=== PATIENT | female | born 1955 | race Caucasian/White ===

== ENCOUNTER 2017-10-03 13:41 | Observation (INO) | payer BC ==
[2017-10-03] MEDS ORDERED: ASPIRIN 81 MG PO STA (14:20)
[2017-10-03] MEDS ORDERED: SODIUM CHLORIDE 0.9% 1,000 ML IV STA (14:20)
[2017-10-03] MEDS ORDERED: NITROGLYCERIN OINT 1 INCH/GM PACKET TOPICAL STA (14:20)
[2017-10-03] MEDS: MORPHINE SULFATE 4 MG/ML SYRINGE IVP STA ×2 (15:17→15:26)
[2017-10-03 15:24] LABS: Basophils % (A) 1 %; Eosinophils # (A) 0.1 k/uL (0-0.7); Eosinophils % (A) 1 %; HCT 38.9 % (34.0-46.0); HGB 13.6 gm/dL (11.4-16.0); Lymphocytes # (A) 3.4 k/uL (1.0-4.8); Lymphocytes % (A) 49 %; MCH 32.9 pg (25.0-35.0); MCHC 35.1 g/dL (31.0-37.0); MCV 93.8 fL (80.0-100.0); Mean Platelet Volume 7.7; Monocytes # (A) 0.4 k/uL (0-1.0); Monocytes % (A) 6 %; Neutrophils # (A) 2.8 k/uL (1.3-7.7); Neutrophils % (A) 41 %; Platelet Count 286 k/uL (150-450); RBC 4.15 m/uL (3.80-5.40); RDW 13.3 % (11.5-15.5)
[2017-10-03 15:27] LABS: ALT 23 U/L (9-52); AST 22 U/L (14-36); Albumin 4.1 g/dL (3.5-5.0); Alkaline Phosphatase 73 U/L (38-126); Anion Gap 9 mmol/L; Blood Urea Nitrogen 20 mg/dL (7-17); Calcium 9.8 mg/dL (8.4-10.2); Carbon Dioxide 28 mmol/L (22-30); Chloride 105 mmol/L (98-107); Glucose 107 mg/dL (74-99); Magnesium 2.1 mg/dL (1.6-2.3); Partial Thromboplastin Time 23.1 sec (22.0-30.0); Potassium 4.6 mmol/L (3.5-5.1); Prothrombin Time 10.1 sec (9.0-12.0); Sodium 142 mmol/L (137-145); Total Bilirubin 0.3 mg/dL (0.2-1.3); Total Protein 7.2 g/dL (6.3-8.2)
[2017-10-03 15:34] LABS: Creatine Kinase 55 U/L (30-135)
--- NOTE | 2017-10-03 15:37 | XR ---
EXAMINATION TYPE: XR chest 2V DATE OF EXAM: 10/03/2017 COMPARISON: NONE HISTORY: Chest pain TECHNIQUE: Frontal and lateral views of the chest are obtained. FINDINGS: There is no focal air space opacity, pleural effusion, or pneumothorax seen. The cardiac silhouette size is within normal limits. The osseous structures are intact. IMPRESSION: No acute cardiopulmonary process.
[2017-10-03 15:47] LABS: Creatine Kinase MB 0.4 ng/mL (0.0-2.4); Troponin I <0.012 ng/mL (0.000-0.034)
--- NOTE | 2017-10-03 17:31 | ED ---
Chest Pain HPI - General Chief Complaint: Chest Pain Stated Complaint: Chest pain sent by UC Time Seen by Provider: 10/03/17 13:57 Source: patient Mode of arrival: ambulatory Limitations: no limitations - History of Present Illness Initial Comments: 62 years old female has a chest pain or shortness of breath for the last few days, chest pain got worse today and went in the hospital on on arrival he was 6 /10 and she was seen at urgent care center and she was advised to come to the ER he said she had a cardiac cath done several years ago she does not how long ago at that point there was no ischemic heart disease she does have a history of hypertension and family history is quite remarkable for coronary artery disease she said her mom headache bypass surgery in 60s. No headaches no neck stiffness has shortness of breath and has chest pain that also has a history of gastroesophageal reflux disease no abdominal pain no frequency urgency dysuria no TIA or CVA - Related Data Home Medications Medication Instructions Recorded Confirmed Estradiol [Estrace] 1 mg PO QAM 05/21/15 10/03/17 Propranolol HCl [Inderal LA] 80 mg PO QAM 05/21/15 10/03/17 clonazePAM [KlonoPIN] 0.5 mg PO HS PRN 05/21/15 10/03/17 Citalopram Hydrobromide [CeleXA] 40 mg PO DAILY 10/03/17 10/03/17 Allergies Allergy/AdvReac Type Severity Reaction Status Date / Time No Known Allergies Allergy Verified 10/03/17 14:11 Review of Systems ROS Statement: Those systems with pertinent positive or pertinent negative responses have been documented in the HPI. ROS Other: All systems not noted in ROS Statement are negative. EKG Findings - EKG Comments: EKG Findings:: EKG is normal sinus rhythm slight bradycardia heart rate of 59 NE interval is 134 QRS duration is 98 QT/QTc is 458/453 review of this EKG does not reveal any ST elevation or ST depression Past Medical History Past Medical History: GERD/Reflux, Hypertension, Sleep Apnea/CPAP/BIPAP Additional Past Medical History / Comment(s): HAVING INTERMITTENT PAIN TO ABD AND RECTAL AREA,HEMORRHOIDS,CURRENTLY HAS HEALING COLD SORES,NO LONGER USES CPAP ,HYPOGLYCEMIA History of Any Multi-Drug Resistant Organisms: None Reported Past Surgical History: Hernia Repair, Hysterectomy Additional Past Surgical History / Comment(s): SEPTOPLASTY,COLONOSCOPY Past Anesthesia/Blood Transfusion Reactions: No Reported Reaction Past Psychological History: Anxiety, Depression Smoking Status: Former smoker Past Alcohol Use History: Occasional Past Drug Use History: None Reported, Marijuana - Past Family History Mother Family Medical History: Cancer, Coronary Artery Disease (CAD) Additional Family Medical History / Comment(s): LUNG,HEPATITIS,CABG Father Family Medical History: Diabetes Mellitus Additional Family Medical History / Comment(s): CIRRHOSIS OF LIVER-ALCOHOLISM General Exam - General Exam Comments Initial Comments: General: The patient is awake and alert, in no distress, and does not appear acutely ill. She looks anxious Skin: Skin is warm and dry and no rashes or lesions are noted. Eye: Pupils are equal, round and reactive to light, extra-ocular movements are intact; there is normal conjunctiva bilaterally. Ears, nose, mouth and throat: There are moist mucous membranes and no oral lesions. Neck: The neck is supple, there is no tenderness or JVD. Cardiovascular: There is a regular rate and rhythm. No murmur, rub or gallop is appreciated. Respiratory: To auscultation bilateral, no wheezing no rhonchi no distress respiratory price noticed Gastrointestinal: Soft, non-distended, non-tender abdomen without masses or organomegaly noted. There is no rebound or guarding present. Bowel sounds are unremarkable. Back: There is no tenderness to palpation in the midline. There is no obvious deformity. Musculoskeletal: Normal ROM, no tenderness, There is no pedal edema. There is no calf tenderness or swelling. No cords were appreciated. Neurological: CN II-XII intact, Cranial nerves III through XII are intact. There are no obvious motor or sensory deficits. Coordination appears grossly intact. Speech is normal. Psychiatric: Cooperative, appropriate mood & affect, normal judgment. Limitations: no limitations Course Vital Signs 10/03/17 10/03/17 10/03/17 13:44 15:09 16:09 Temperature 98.8 F Pulse Rate 61 64 62 Respiratory 18 18 18 Rate Blood Pressure 170/73 169/77 155/77 O2 Sat by Pulse 99 100 100 Oximetry 10/03/17 17:03 Temperature Pulse Rate 66 Respiratory 18 Rate Blood Pressure 174/85 O2 Sat by Pulse 100 Oximetry She is reassessed at term 1700, d-dimer is unremarkable CBC is unremarkable INR is negative troponin is negative compressive metabolic panel is unremarkable chest x-rays unremarkable as well. She has a few risk factors she is so 62 years old she has a history of hypertension and she has a family history of heart disease she be admitted to [facility] for 3 sets of cardiac markers and cardiology consult Disposition Clinical Impression: Chest pain Disposition: ADMITTED IP TO THIS HOSP Condition: Good Referrals: None,Stated [Primary Care Provider] - 1-2 days
[2017-10-03] MEDS ORDERED: clonazePAM 0.5 MG TAB PO PRN (17:32)
[2017-10-03] MEDS ORDERED: NITROGLYCERIN SL TABS 0.4 MG TAB SUBLINGUAL PRN (17:32)
[2017-10-03] MEDS ORDERED: MORPHINE SULFATE 4 MG/ML SYRINGE IVP PRN (17:32)
[2017-10-03] MEDS ORDERED: MAG HYDROX/AL HYDROX/SIMETH 30 ML, HYOSCYAMINE ELIXIR 10 ML, CIMETIDINE HCL 300 MG, LID... PO ONE ×4 (18:08)
--- NOTE | 2017-10-03 18:13 | P.HPIM ---
History of Present Illness H&P Date: 10/03/17 Chief Complaint: Chest pain and dizziness The patient is a 62-year-old female with a past medical history of essential hypertension depression and anxiety and acid reflux who presents to the ER with chief complaint of mid substernal chest pressure over the last 2 days, she reports some associated shortness of breath and dyspnea on exertion, reports that the pain is worse when walking and talking, she reports she did initially felt like her normal GERD symptoms with symptoms of pyrosis and burning, however she became concerned because she normally takes Tums and has been taking Pepcid AC without any relief. She also reports some dizziness and lightheadedness, but denies any headache, denies focal weakness, slurred speech or confusion. She reports to be compliant with her propranolol for hypertension although she did not take it this a.m.. She denies any history of smoking, or dyslipidemia, but reports a family history of coronary artery disease in her mother. In the ER she had a EKG that showed normal sinus rhythm without any suggestion of any acute ischemia, her initial set of cardiac enzymes are negative with troponin less than 0.012 Review of Systems Although the 14 point review of systems negative except per HPI Past Medical History Past Medical History: GERD/Reflux, Hypertension, Sleep Apnea/CPAP/BIPAP Additional Past Medical History / Comment(s): HAVING INTERMITTENT PAIN TO ABD AND RECTAL AREA,HEMORRHOIDS,CURRENTLY HAS HEALING COLD SORES,NO LONGER USES CPAP ,HYPOGLYCEMIA History of Any Multi-Drug Resistant Organisms: None Reported Past Surgical History: Hernia Repair, Hysterectomy Additional Past Surgical History / Comment(s): SEPTOPLASTY,COLONOSCOPY Past Anesthesia/Blood Transfusion Reactions: No Reported Reaction Past Psychological History: Anxiety, Depression Smoking Status: Former smoker Past Alcohol Use History: Occasional Past Drug Use History: None Reported, Marijuana - Past Family History Mother Family Medical History: Cancer, Coronary Artery Disease (CAD) Additional Family Medical History / Comment(s): LUNG,HEPATITIS,CABG Father Family Medical History: Diabetes Mellitus Additional Family Medical History / Comment(s): CIRRHOSIS OF LIVER-ALCOHOLISM Medications and Allergies Home Medications Medication Instructions Recorded Confirmed Type Estradiol [Estrace] 1 mg PO QAM 05/21/15 10/03/17 History Propranolol HCl [Inderal LA] 80 mg PO QAM 05/21/15 10/03/17 History clonazePAM [KlonoPIN] 0.5 mg PO HS PRN 05/21/15 10/03/17 History Citalopram Hydrobromide [CeleXA] 40 mg PO DAILY 10/03/17 10/03/17 History Allergies Allergy/AdvReac Type Severity Reaction Status Date / Time No Known Allergies Allergy Verified 10/03/17 14:11 Physical Exam Vitals: Vital Signs Temp Pulse Resp BP Pulse Ox 10/03/17 17:03 66 18 174/85 100 10/03/17 16:09 62 18 155/77 100 10/03/17 15:09 64 18 169/77 100 10/03/17 13:44 98.8 F 61 18 170/73 99 Intake and Output 10/03/17 10/03/17 10/03/17 06:59 14:59 22:59 Other: Weight 69.4 kg Constitutional: No acute distress, conversant, pleasant Eyes: Anicteric sclerae, moist conjunctiva, no lid-lag, PERRLA ENMT: NC/AT,Oropharynx clear, no erythema, exudates Neck:Supple, FROM, no masses, or JVD, No carotid bruits; No thyromegaly Lungs: Clear to auscultation, Clear to percussion, Normal respiratory effort, no accessory muscle use Cardiovascular: Heart regular in rate and rhythm, No murmurs, gallops, or rubs no peripheral edema Abdominal: Soft Nontender, nom distended, no guarding, no rebound or rigidity, Normoactive bowel sounds No hepatomegaly, No splenomegaly, No palpable mass No abdominal wall hernia noted Skin: Normal temperature, tone, texture, turgor, No induration No subcutaneous nodules, No rash, lesions, No ulcers Extremities:No digital cyanosis No clubbing, Pedal pulses intact and symmetrical Radial pulses intact and symmetrical Normal gait and station, No calf tenderness Psychiatric: Alert and oriented to person, place and time, Appropriate affect Intact judgement Neuro: Muscles Strength 5/5 in all 4 extremities, Sensation to light touch grossly present throughout, Cranial nerves II-XII grossly intact. No focal sensory deficits Results CBC & Chem 7: 10/03/17 14:04 10/03/17 14:04 Labs: Abnormal Lab Results - Last 24 Hours (Table) 10/03/17 Range/Units 14:04 BUN 20 H (7-17) mg/dL Glucose 107 H (74-99) mg/dL Assessment and Plan (1) Chest pain Current Visit: Yes Status: Acute Code(s): R07.9 - CHEST PAIN, UNSPECIFIED SNOMED Code(s): 29530462 (2) GERD (gastroesophageal reflux disease) Current Visit: Yes Status: Acute Code(s): K21.9 - GASTRO-ESOPHAGEAL REFLUX DISEASE WITHOUT ESOPHAGITIS SNOMED Code(s): 583125220 (3) Accelerated hypertension Current Visit: Yes Status: Acute Code(s): I10 - ESSENTIAL (PRIMARY) HYPERTENSION SNOMED Code(s): 17162132 (4) Dizziness Current Visit: Yes Status: Acute Code(s): R42 - DIZZINESS AND GIDDINESS SNOMED Code(s): 666445461 (5) Depression with anxiety Current Visit: Yes Status: Acute Code(s): F41.8 - OTHER SPECIFIED ANXIETY DISORDERS SNOMED Code(s): 210915542 Plan: The patient is a 62-year-old female that is placed on observation anticipate a less than 2 midnight stay for chest pain coronary risk factors include hypertension and age and family history, her initial EKG and cardiac enzymes are negative for any suggestion of any acute ischemia, we'll order her a dobutamine stress echocardiogram, cardiology has been consulted from the ER we 'll await further recommendations. We'll start her on a GI cocktail and PPI therapy, continue with routine chest pain orders we'll trend cardiac enzymes, continue antiplatelet therapy with aspirin. And place her on DVT prophylaxis with Lovenox. We'll continue to monitor clinical course
[2017-10-03 20:47] VITALS: BMI 25.2
[2017-10-03] MEDS ORDERED: clonazePAM 0.5 MG TAB PO ONE (20:55)
[2017-10-03] MEDS ORDERED: PROPRANOLOL LA 80 MG CAP.SA.24H PO ONE (21:02)
[2017-10-03] MEDS ORDERED: CITALOPRAM HYDROBROMIDE 20 MG TAB PO ONE (21:03)
[2017-10-03 21:17] LABS: Creatine Kinase 48 U/L (30-135)
[2017-10-03 21:29] LABS: Creatine Kinase MB 0.3 ng/mL (0.0-2.4); Troponin I <0.012 ng/mL (0.000-0.034)
[2017-10-04 01:43] LABS: Creatine Kinase 45 U/L (30-135)
[2017-10-04 01:56] LABS: Creatine Kinase MB 0.3 ng/mL (0.0-2.4); Troponin I <0.012 ng/mL (0.000-0.034)
[2017-10-04 03:55] LABS: Cholesterol 221 mg/dL (<200); HDL Cholesterol 71 mg/dL (40-60); LDL Cholesterol,Calculated 114 mg/dL (0-99); Triglycerides 178 mg/dL (<150)
[2017-10-04] MEDS ORDERED: DOBUTamine DRIP for NUC MED 250 MG in DEXTROSE/WATER 1 250ML.BAG IV ONE (07:00)
[2017-10-04] MEDS ORDERED: PANTOPRAZOLE 40 MG TABLET PO SCH (07:30)
[2017-10-04 07:47] VITALS: RESP 16
[2017-10-04] MEDS ORDERED: REGADENOSON 0.4 MG/5 ML SYRINGE IV ONE (08:02)
[2017-10-04] MEDS ORDERED: AMINOPHYLLINE 500 MG/20 ML VIAL IV PRN (08:02)
[2017-10-04] MEDS ORDERED: ACETAMINOPHEN TAB 325 MG TAB PO PRN (08:02)
[2017-10-04] MEDS ORDERED: ASPIRIN 81 MG PO SCH (09:00)
[2017-10-04] MEDS ORDERED: CITALOPRAM HYDROBROMIDE 20 MG TAB PO SCH (09:00)
[2017-10-04] MEDS ORDERED: ASPIRIN 325 MG TAB PO SCH (09:00)
[2017-10-04] MEDS ORDERED: ENOXAPARIN 40 MG/0.4 ML SYRINGE SQ SCH (09:00)
[2017-10-04] MEDS ORDERED: PROPRANOLOL LA 80 MG CAP.SA.24H PO SCH (09:00)
--- NOTE | 2017-10-04 09:56 | P.CRDCN ---
History of Present Illness Consult date: 10/04/17 Consult reason: chest pain History of present illness: Mrs. Blackmon is a pleasant 62-year-old female past medical history significant for hypertension, sleep apnea and gastroesophageal reflux disease. She denies history of coronary artery disease. She states she underwent a stress test in the past, many years ago. We have been asked to see her in consultation for complaints of chest pain. She states she has had burning in her mid-sternal region described as burning. The sensation moves across anterior chest and through to left shoulder and back at times. She sas associated shortness of breath, nausea and mild dizziness. Been going on and off for the past 2 days. Unrelieved by pepcid which usually relieves her symptoms of burning, this seemed different to her. No specific aggravating or alleviating factors. Denies palpitations or diaphoresis. EKG on arrival reveals sinus mechanism with right bundle branch block. Chest xray is negative for an acute cardiopulmonary process. Laboratory data reviewed, cardiac enzymes negative x3. potassium 4.6, magnesium 2.1, LDL 114, HDL 71, d-dimer 0.39. Current cardiac medications include propranolol 80 mg daily. Review of Systems At the time my exam: CONSTITUTIONAL: Denies fever. Denies chills. EYES: Denies blurred vision. Denies vision changes. Denies eye pain. EARS, NOSE, MOUTH & THROAT: Denies headache. Denies sore throat. Denies ear pain. CARDIOVASCULAR: Denies chest pain. Denies shortness of breath. Denies orthopnea. Denies PND. Denies palpitations. RESPIRATORY: Denies cough. GASTROINTESTINAL: Denies abdominal pain. Denies diarrhea. Denies constipation. Denies nausea. Denies vomiting. MUSCULOSKELETAL: Denies myalgias. INTEGUMENTARY: Denies pruitis. Denies rash. NEUROLOGIC: Denies numbness. Denies tingling. Denies weakness. PSYCHIATRIC: Denies anxiety. Denies depression. ENDOCRINE: Denies fatigue. Denies weight change. Denies polydipsia. Denies polyurina. GENITOURINARY: Denies burning, hematuria or urgency with micturation. HEMATOLOGIC: Denies history of anemia. Denies bleeding. Past Medical History Past Medical History: GERD/Reflux, Hypertension, Sleep Apnea/CPAP/BIPAP Additional Past Medical History / Comment(s): HAVING INTERMITTENT PAIN TO ABD AND RECTAL AREA,HEMORRHOIDS,CURRENTLY HAS HEALING COLD SORES,NO LONGER USES CPAP ,HYPOGLYCEMIA History of Any Multi-Drug Resistant Organisms: None Reported Past Surgical History: Hernia Repair, Hysterectomy Additional Past Surgical History / Comment(s): SEPTOPLASTY,COLONOSCOPY Past Anesthesia/Blood Transfusion Reactions: No Reported Reaction Past Psychological History: Anxiety, Depression Smoking Status: Former smoker Past Alcohol Use History: Occasional Past Drug Use History: None Reported, Marijuana - Past Family History Mother Family Medical History: Cancer, Coronary Artery Disease (CAD) Additional Family Medical History / Comment(s): LUNG,HEPATITIS,CABG Father Family Medical History: Diabetes Mellitus Additional Family Medical History / Comment(s): CIRRHOSIS OF LIVER-ALCOHOLISM Medications and Allergies Home Medications Medication Instructions Recorded Confirmed Type Estradiol [Estrace] 1 mg PO QAM 05/21/15 10/03/17 History Propranolol HCl [Inderal LA] 80 mg PO QAM 05/21/15 10/03/17 History clonazePAM [KlonoPIN] 0.5 mg PO HS PRN 05/21/15 10/03/17 History Citalopram Hydrobromide [CeleXA] 40 mg PO DAILY 10/03/17 10/03/17 History Allergies Allergy/AdvReac Type Severity Reaction Status Date / Time No Known Allergies Allergy Verified 10/03/17 14:11 Physical Exam Vitals: Vital Signs Temp Pulse Pulse Resp BP BP Pulse Ox 10/04/17 04:00 98.0 F 53 L 18 132/80 99 10/04/17 00:08 98.1 F 54 L 16 128/79 99 10/03/17 23:43 16 10/03/17 20:20 98 F 61 16 159/77 99 10/03/17 20:00 55 L 16 10/03/17 19:21 98 F 60 16 190/90 99 10/03/17 18:52 97.6 F 70 18 151/82 99 10/03/17 17:03 66 18 174/85 100 10/03/17 16:09 62 18 155/77 100 10/03/17 15:09 64 18 169/77 100 10/03/17 13:44 98.8 F 61 18 170/73 99 Intake and Output 10/03/17 10/04/17 10/04/17 22:59 06:59 14:59 Other: Voiding Method Toilet Toilet # Voids 1 1 Weight 71.1 kg 71.1 kg Blood pressure 172/69 heart rate 52 afebrile maintain oxygen saturation on room air GENERAL: This is a 62-year-old female in no apparent distress at the time of my examination. HEENT: Head is atraumatic, normocephalic. Pupils are equal, round. Sclerae anicteric. Conjunctivae are clear. Mucous membranes of the mouth are moist. Neck is supple. There is no jugular venous distention. No carotid bruit is heard. LUNGS: Clear to auscultation no wheezes, rales or rhonchi. No chest wall tenderness is noted on palpation or with deep breathing. HEART: Regular rate and rhythm without murmurs, rubs or gallops. S1 and S2 heard. ABDOMEN: Soft, nontender. Bowel sounds are heard. No organomegaly noted. EXTREMITIES: No evidence of peripheral edema and no calf tenderness noted. VASCULAR: Radial and dorsalis pedis pulses palpated, no evidence of clubbing. NEUROLOGIC: Patient is awake, alert and oriented x3. Results 10/03/17 14:04 10/03/17 14:04 Cardiac Enzymes 10/03/17 10/03/17 10/03/17 Range/Units 14:04 14:04 20:37 AST 22 (14-36) U/L CK-MB (CK-2) 0.4 0.3 (0.0-2.4) ng/mL Troponin I <0.012 <0.012 (0.000-0.034) ng/mL 10/04/17 Range/Units 01:05 AST (14-36) U/L CK-MB (CK-2) 0.3 (0.0-2.4) ng/mL Troponin I <0.012 (0.000-0.034) ng/mL Coagulation 10/03/17 Range/Units 14:04 PT 10.1 (9.0-12.0) sec APTT 23.1 (22.0-30.0) sec Lipids 10/03/17 Range/Units 14:04 Triglycerides 178 H (<150) mg/dL Cholesterol 221 H (<200) mg/dL HDL Cholesterol 71 H (40-60) mg/dL CBC 10/03/17 Range/Units 14:04 WBC 7.0 (3.8-10.6) k/uL RBC 4.15 (3.80-5.40) m/uL Hgb 13.6 (11.4-16.0) gm/dL Hct 38.9 (34.0-46.0) % Plt Count 286 (150-450) k/uL Comprehensive Metabolic Panel 10/03/17 Range/Units 14:04 Sodium 142 (137-145) mmol/L Potassium 4.6 (3.5-5.1) mmol/L Chloride 105 (98-107) mmol/L Carbon Dioxide 28 (22-30) mmol/L BUN 20 H (7-17) mg/dL Creatinine 0.78 (0.52-1.04) mg/dL Glucose 107 H (74-99) mg/dL Calcium 9.8 (8.4-10.2) mg/dL AST 22 (14-36) U/L ALT 23 (9-52) U/L Alkaline Phosphatase 73 (38-126) U/L Total Protein 7.2 (6.3-8.2) g/dL Albumin 4.1 (3.5-5.0) g/dL Current Medications Generic Name Dose Route Start Last Admin Trade Name Freq PRN Reason Stop Dose Admin Aspirin 325 mg 10/04/17 09:00 Aspirin PO DAILY [facility] Citalopram Hydrobromide 40 mg 10/04/17 09:00 Celexa PO DAILY [facility] Clonazepam 0.5 mg 10/03/17 17:32 Klonopin PO HS PRN Anxiety Enoxaparin Sodium 40 mg 10/04/17 09:00 Lovenox SQ DAILY [facility] Dobutamine HCl/Dextrose 250 mg 250 mls @ 41.64 mls/hr 10/04/17 07:00 / IV Solution IV 10/04/17 13:00 .Q6H1M ONE Protocol 10 MCG/KG/MIN Morphine Sulfate 2 mg 10/03/17 17:32 Morphine Sulfate (Inj) IVP Q5M PRN Chest Pain Nitroglycerin 0.4 mg 10/03/17 17:32 Nitrostat SUBLINGUAL Q5M PRN Chest Pain Pantoprazole Sodium 40 mg 10/04/17 07:30 Protonix PO AC-BRKFST [facility] Propranolol HCl 80 mg 10/04/17 09:00 Inderal La PO QAM SENDY Intake and Output 10/03/17 10/04/17 10/04/17 22:59 06:59 14:59 Other: Voiding Method Toilet Toilet # Voids 1 1 Weight 71.1 kg 71.1 kg 10/03/17 14:04 10/03/17 14:04 Assessment and Plan Assessment: ASSESSMENT 1. Chest pain, atypical 2. Hypertension 3. Family history of heart disease 4. Former tobacco use 5. Dyslipidemia PLAN Obtain 2D echocardiogram and doppler study to assess cardiac structure and function. Perform Lexiscan stress test to assess for reversible cardiac ischemia. Recommend she take aspirin 81 mg daily. Discussed lifestyle modifications for lowering of LDL cholesterol. Further recommendations based upon clinical course and diagnostic test findings. Thank you kindly for this consultation. Nurse Practitioner note has been reviewed, I agree with a documented findings and plan of care. Patient was seen and examined.
--- NOTE | 2017-10-04 11:16 | NM ---
EXAMINATION TYPE: NM stress lexiscan cardiolite DATE OF EXAM: 10/04/2017 COMPARISON: NONE HISTORY: Chest pain TECHNIQUE: After the intravenous administration of 10.7 mCi Tc 99m Sestamibi - Cardiolite resting SP ECT images acquired 45 minutes post injection. The patient received 0.4mg Lexiscan, 26.2 mCi Tc 99m Sestamibi - Stress images obtained [address] injection FINDINGS: Review of stress and rest SPECT images demonstrates no distinct perfusion abnormality. Gated analysi s shows normal wall motion with an estimated left ventricular ejection fraction of 62 %. IMPRESSION: No scintigraphic evidence for reversible ischemia.
[2017-10-04 12:16] VITALS: BP 143/72; PULSE 53; TEMP 99.1
--- NOTE | 2017-10-04 14:27 | P.DS ---
Providers Date of admission: 10/03/17 17:32 Expected date of discharge: 10/04/17 Attending physician: Oleksandr Langley MD Consults: 10/03/17 17:32 Consult Physician Urgent Consulting Provider: Anthony Justin Consult Reason/Comments: Chest pain Do you want consulting provider notified?: Yes Primary care physician: Stated None - Discharge Diagnosis(es) (1) Chest pain Current Visit: Yes Status: Acute (2) GERD (gastroesophageal reflux disease) Current Visit: Yes Status: Acute (3) Accelerated hypertension Current Visit: Yes Status: Acute (4) Dizziness Current Visit: Yes Status: Acute (5) Depression with anxiety Current Visit: Yes Status: Acute (6) Bradycardia Current Visit: Yes Status: Acute Hospital Course: The patient is a 62-year-old female with a past with a history of anxiety and depression and GERD presented with chest pain, she had a complete cardiac workup including sequential cardiac enzymes and EKG of which was negative for any acute ischemia, given her coronary risk factors of hypertension age and former smoker she had a nuclear Lexiscan stress test which was negative for any suggestion of coronary artery disease, she had a Doppler 2- D echo that showed a normal ejection fraction. The patient was noted to have episodes of asymptomatic bradycardia with a heart rate as low as high 40s at rest, in discussion with cardiology was decided to discontinue her Inderal and start her on lisinopril/HCTZ 10/12.5 mg by mouth daily with plans for the patient to follow-up with cardiology and her PCP in the next 3-5 days. It was thought that her pain was secondary to ongoing GERD she was told to continue her Tums and she was discharged home on Protonix 40 mg by mouth daily. Discharge process took approximately 30 minutes. Constitutional: No acute distress, conversant, pleasant Eyes: Anicteric sclerae, moist conjunctiva, no lid-lag, PERRLA ENMT: NC/AT,Oropharynx clear, no erythema, exudates Neck:Supple, FROM, no masses, or JVD, No carotid bruits; No thyromegaly Lungs: Clear to auscultation, Clear to percussion, Normal respiratory effort, no accessory muscle use Cardiovascular: Bradycardic regular rhythm, No murmurs, gallops, or rubs no peripheral edema Abdominal: Soft Nontender, nom distended, no guarding, no rebound or rigidity, Normoactive bowel sounds No hepatomegaly, No splenomegaly, No palpable mass No abdominal wall hernia noted Skin: Normal temperature, tone, texture, turgor, No induration No subcutaneous nodules, No rash, lesions, No ulcers Extremities:No digital cyanosis No clubbing, Pedal pulses intact and symmetrical Radial pulses intact and symmetrical Normal gait and station, No calf tenderness Psychiatric: Alert and oriented to person, place and time, Appropriate affect Intact judgement Neuro: Muscles Strength 5/5 in all 4 extremities, Sensation to light touch grossly present throughout, Cranial nerves II-XII grossly intact. No focal sensory deficits Patient Condition at Discharge: Good Plan - Discharge Summary New Discharge Prescriptions: New Pantoprazole [Protonix] 40 mg PO AC-BRKFST #60 tablet. Lisinopril-Hctz 10-12.5 mg [Zestoretic 10-12.5] 1 each PO DAILY #30 tab Continue clonazePAM [KlonoPIN] 0.5 mg PO HS PRN PRN Reason: Anxiety Estradiol [Estrace] 1 mg PO QAM Citalopram Hydrobromide [CeleXA] 40 mg PO DAILY Discontinued Propranolol HCl [Inderal LA] 80 mg PO QAM Discharge Medication List Estradiol [Estrace] 1 mg PO QAM 05/21/15 [History] clonazePAM [KlonoPIN] 0.5 mg PO HS PRN 05/21/15 [History] Citalopram Hydrobromide [CeleXA] 40 mg PO DAILY 10/03/17 [History] Lisinopril-Hctz 10-12.5 mg [Zestoretic 10-12.5] 1 each PO DAILY #30 tab [Rx] Pantoprazole [Protonix] 40 mg PO AC-BRKFST #60 tablet. 10/04/17 [Rx] Follow up Appointment(s)/Referral(s): None,Stated [Primary Care Provider] - 1-2 days Discharge Disposition: HOME SELF-CARE
[2017-10-04] MEDS ORDERED: LISINOPRIL-HCTZ 10-12.5 MG 1 EACH TAB PO SCH (14:30)
--- NOTE | 2017-10-04 19:36 | ECHOF ---
Referral Reason:cp MEASUREMENTS -------- HEIGHT: 167.6 cm WEIGHT: 70.8 kg BP: RVIDd: 2.6 cm (< 3.3) IVSd: 1.0 cm (0.6 - 1.1) LVIDd: 4.8 cm (3.9 - 5.3) LVPWd: 1.0 cm (0.6 - 1.1) IVSs: 1.5 cm LVIDs: 2.6 cm LVPWs: 1.5 cm LAESV Index (A-L): 21.95 ml/m Ao Diam: 3.3 cm (2.0 - 3.7) AV Cusp: 2.1 cm (1.5 - 2.6) LA Diam: 3.2 cm (2.7 - 3.8) EPSS: 0.4 cm MV E Mani: 0.77 m/s MV DecT: 316 ms MV A Mani: 0.65 m/s MV E/A Ratio: 1.18 RAP: 5.00 mmHg RVSP: 30.50 mmHg MV EF SLOPE: 99.64 mm/s (70 - 150) MV EXCURSION: 1.97 cm (> 18.000) FINDINGS -------- Sinus rhythm. This was a technically adequate study. The left ventricular size is normal. Left ventricular wall thickness is normal. Overall left vent ricular systolic function is normal with, an EF between 55 - 60 %. The right ventricle is normal in size and function. Normal LA size by volume 22+/-6 ml/m2. RA appears enlarged. Aortic valve is trileaflet and is mildly thickened. There is no evidence of aortic regurgitation. There is no evidence of aortic stenosis. The mitral valve leaflets are mildly thickened. There is trace to mild mitral regurgitation. Mild tricuspid regurgitation present. Right ventricular systolic pressure is normal at < 35 mmHg. There is no evidence of pulmonary hypertension. Trace/mild (physiologic) pulmonic regurgitation. The aortic root size is normal. Normal inferior vena cava with normal inspiratory collapse consistent with estimated right atrial pre ssure of 5 mmHg. The pericardium is normal. There is no pericardial effusion. CONCLUSIONS -------- 1. Sinus rhythm. 2. This was a technically adequate study. 3. The left ventricular size is normal. 4. Left ventricular wall thickness is normal. 5. Overall left ventricular systolic function is normal with, an EF between 55 - 60 %. 6. Normal LA size by volume 22+/-6 ml/m2. 7. RA appears enlarged. 8. Aortic valve is trileaflet and is mildly thickened. 9. The mitral valve leaflets are mildly thickened. 10. There is trace to mild mitral regurgitation. 11. Mild tricuspid regurgitation present. 12. Right ventricular systolic pressure is normal at < 35 mmHg. 13. There is no evidence of pulmonary hypertension. 14. Trace/mild (physiologic) pulmonic regurgitation. 15. The aortic root size is normal. 16. There is no pericardial effusion. GREEN BUILDING DESIGN SPECIALIST: Judson Gabriel RDCS
--- NOTE | 2017-10-05 12:14 | EST ---
EXERCISE STRESS AGE: 62 SEX: Female HT: 66" WT: 156 lbs PROTOCOL: Lexiscan Cardiolite STAGE: DURATION OF EXERCISE: HEART RATE REST: 47 BLOOD PRESSURE REST: 150/70 MAXIMUM HEART RATE ACHIEVED: 65 MAXIMUM BLOOD PRESSURE: 150/70 85% MPHR: 136 100% MPHR: 160 METS: INDICATIONS: Chest pain. CLINICAL INFORMATION: Baseline EKG revealed a sinus bradycardia without significant ST-T changes. With Lexiscan administration, heart rate changed from 47 to 63 beats per minute. Blood pressure changed from 150/70 to 130/70. EKG remained unremarkable. Patient had transient chest discomfort. By EKG criteria, this is an unremarkable Lexiscan stress test. The nuclear scan results will be reported by the radiologist. MMODL / IJN: [id number] /
== END 2017-10-04 16:10 | disposition home or self-care (01) ==
LOC: EC 13:41 → 3OBS 17:32
PROVIDERS: ADMIT Family Medicine; ATTEND Family Medicine
DX: R07.89 Other chest pain (principal); K21.9 Gastro-esophageal reflux disease without esophagitis; I10 Essential (primary) hypertension; E78.5 Hyperlipidemia, unspecified; F41.8 Other specified anxiety disorders; G47.30 Sleep apnea, unspecified; R00.1 Bradycardia, unspecified; Z87.891 Personal history of nicotine dependence; Z79.899 Other long term (current) drug therapy; Z82.49 Family history of ischemic heart disease and other diseases of the circulatory system; Z83.3 Family history of diabetes mellitus; Z83.79 Family history of other diseases of the digestive system; Z81.1 Family history of alcohol abuse and dependence
CPT/HCPCS: 99285 ×2; 96360 ×2; 96361 ×5; 96372; 36415; 93005; 93017; 93306; 85379; 80061; 80053; 82550 ×2; 82553 ×2; 83735; 84484 ×2; 85025; 85610; 85730; 71046; 78452; G0378 ×2; A9500; J1650; J2785

== ENCOUNTER → 2017-10-29 | Outpatient (CLI) | payer BC ==
[2017-10-29 14:04] LABS: T4, Free (Free Thyroxine) 0.94 ng/dL (0.78-2.19)
== END | disposition home or self-care (01) ==
LOC: LABWHC1 13:16
PROVIDERS: ATTEND Internal Medicine Interventional Cardiology
DX: E03.9 Hypothyroidism, unspecified (principal)
CPT/HCPCS: 36415; 84439; 84443

== ENCOUNTER → 2018-01-10 | Outpatient (CLI) | payer BC ==
[2018-01-10 11:52] LABS: Albumin 4.2 g/dL (3.5-5.0); Calcium 9.4 mg/dL (8.4-10.2); Potassium 4.5 mmol/L (3.5-5.1); Total Bilirubin 0.4 mg/dL (0.2-1.3); Total Protein 7.2 g/dL (6.3-8.2)
[2018-01-10 12:17] LABS: Basophils # (A) 0.1 k/uL (0-0.2); Basophils % (A) 1 %; Eosinophils # (A) 0.1 k/uL (0-0.7); Eosinophils % (A) 1 %; HCT 41.7 % (34.0-46.0); HGB 13.8 gm/dL (11.4-16.0); Lymphocytes # (A) 3.8 k/uL (1.0-4.8); Lymphocytes % (A) 46 %; MCH 32.8 pg (25.0-35.0); MCV 99.4 fL (80.0-100.0); Mean Platelet Volume 6.6; Monocytes # (A) 0.3 k/uL (0-1.0); Monocytes % (A) 4 %; Neutrophils # (A) 3.7 k/uL (1.3-7.7); Neutrophils % (A) 44 %; Platelet Count 311 k/uL (150-450); RDW 13.7 % (11.5-15.5); WBC 8.3 k/uL (3.8-10.6)
== END | disposition home or self-care (01) ==
LOC: LABWHC1 11:17
PROVIDERS: ATTEND Nurse Practitioner
DX: Z00.00 Encounter for general adult medical examination without abnormal findings (principal); Z13.220 Encounter for screening for lipoid disorders
CPT/HCPCS: 36415; 80053; 80061; 85025

== ENCOUNTER → 2018-01-14 | Outpatient (CLI) | payer BC ==
--- NOTE | 2018-01-18 08:29 | MM ---
Reason for exam: screening (asymptomatic). Last mammogram was performed 2 years and 1 month ago. History: Patient is postmenopausal and is nulliparous. Family history of breast cancer in cousin. Taking estrogen for 25 years beginning at age 37. Physical Findings: A clinical breast exam by your physician is recommended on an annual basis and results should be correlated with mammographic findings. MG 3D Screening Mammo W/Cad Bilateral CC and MLO view(s) were taken. Prior study comparison: December 12, 2015, bilateral MG screening mammo w CAD. July 17, 2013, mammogram, performed at [place]. There are scattered fibroglandular densities. No significant changes when compared with prior studies. ASSESSMENT: Negative, BI-RAD 1 RECOMMENDATION: Routine screening mammogram of both breasts in 1 year.
== END | disposition home or self-care (01) ==
LOC: RADMAMWWP 07:10
PROVIDERS: ATTEND Family Medicine
DX: Z12.31 Encounter for screening mammogram for malignant neoplasm of breast (principal)
CPT/HCPCS: 77063; 77067

== ENCOUNTER 2018-10-26 10:26 | Day surgery (SDC) | payer BC ==
[2018-10-24 15:29] VITALS: BMI 25.0
[~2018-10-26 10:26] MED LIST: LACTATED RINGERS 1,000 ML IV SCH; LIDOCAINE 1% 20 ML VIAL (10MG/ML) FOR IV START INTRADERMA PRN
[2018-10-26 10:43] VITALS: RESP 16; TEMP 97.4
[2018-10-26] MEDS ORDERED: LIDOCAINE 1% INJ 10MG/ML (20 ML MDV) ONE (11:54)
[2018-10-26] MEDS ORDERED: PROPOFOL 10 MG/ML 20 ML VIAL IV ONE (11:54)
--- NOTE | 2018-10-26 12:03 | P.PCN ---
Date of Procedure: 10/26/18 Procedure(s) Performed: BRIEF HISTORY: Patient is a 63-year-old, pleasant, white female, scheduled for an upper endoscopy as a value should've epigastric pain and abdominal bloating for the last several months duration. She is presently on Protonix 40 mg daily as well as Phenergan for nausea with minimal help in his symptoms. PROCEDURE PERFORMED: Esophagogastroduodenoscopy with biopsy PREOPERATIVE DIAGNOSIS: Epigastric pain/abdominal bloating and nausea. IV sedation per anesthesia. PROCEDURE: After informed consent was obtained, the patient was brought into the endoscopy unit. IV sedation was administered by Anesthesia under continuous monitoring. Initially the Olympus GIF-140 video endoscope was inserted into the mouth. Esophagus intubated without any difficulty. It was gradually advanced into the stomach and duodenum and carefully examined. The bulb and the second part of the duodenum appeared normal. Biopsies were done from the duodenum to rule out celiac disease. The scope at this time was withdrawn to the stomach, adequately insufflated with air, and upon careful examination, mucosa of the antrum had patchy areas of erythema consistent with gastritis and biopsies were done from this area. The body, cardia and the fundus appeared normal. The scope was then withdrawn into the esophagus. The GE junction was located at 39 cm from the incisors. The esophagus appeared normal. There were no erosions or ulcerations seen and the patient tolerated the procedure well. IMPRESSION: 1. Mild antral gastritis. 2. No evidence of esophagitis or peptic ulcer disease. RECOMMENDATIONS: The findings of this examination were discussed with the patient is well as her family.. She was advised to follow with the biopsy results. She will continue with her current medications and she'll be seen in office in 3-4 weeks
[2018-10-26 12:49] VITALS: BP 132/78; PULSE 59
== END 2018-10-26 12:54 | disposition home or self-care (01) ==
LOC: ORWHC2ENDO 10:26
PROVIDERS: ATTEND Internal Medicine Gastroenterology
DX: K29.50 Unspecified chronic gastritis without bleeding (principal); I10 Essential (primary) hypertension; G47.33 Obstructive sleep apnea (adult) (pediatric); F41.9 Anxiety disorder, unspecified; F32.9 Major depressive disorder, single episode, unspecified; Z79.899 Other long term (current) drug therapy
CPT/HCPCS: 88305; 43239; J2001; J2704

== ENCOUNTER → 2019-02-22 | Outpatient (CLI) | payer BC ==
[2019-02-22 12:08] LABS: Basophils # (A) 0.1 k/uL (0-0.2); Basophils % (A) 1 %; Eosinophils # (A) 0.1 k/uL (0-0.7); Eosinophils % (A) 1 %; HCT 38.4 % (34.0-46.0); HGB 12.2 gm/dL (11.4-16.0); Lymphocytes # (A) 3.7 k/uL (1.0-4.8); Lymphocytes % (A) 43 %; MCH 30.9 pg (25.0-35.0); MCHC 31.7 g/dL (31.0-37.0); MCV 97.5 fL (80.0-100.0); Monocytes # (A) 0.3 k/uL (0-1.0); Monocytes % (A) 4 %; Neutrophils # (A) 4.1 k/uL (1.3-7.7); Neutrophils % (A) 48 %; Platelet Count 254 k/uL (150-450); RBC 3.94 m/uL (3.80-5.40); RDW 13.7 % (11.5-15.5); WBC 8.6 k/uL (3.8-10.6)
[2019-02-22 19:33] LABS: African American GFR (CKD) 79.4 (60.0-200.0); Albumin/Globulin Ratio 1.67 (1.60-3.17); Anion Gap 8.1 mmol/L (4.00-12.00); BUN/Creat Ratio 22.22 Ratio (12.00-20.00); C Reactive Protein 0.9 mg/dL (0.0-0.8); Calcium 8.9 mg/dL (8.7-10.3); Carbon Dioxide 25.9 mmol/L (21.6-31.8); Globulin 2.4 g/dL (1.6-3.3); Potassium 4.6 mmol/L (3.5-5.5); Total Bilirubin 0.3 mg/dL (0.3-1.2); Total Protein 6.4 g/dL (6.2-8.2)
== END | disposition home or self-care (01) ==
LOC: LABWHC1 11:51
PROVIDERS: ATTEND Family Medicine
DX: R10.9 Unspecified abdominal pain (principal); N17.9 Acute kidney failure, unspecified
CPT/HCPCS: 36415; 80053; 85025; 86140

== ENCOUNTER → 2019-03-07 | Outpatient (CLI) | payer BC ==
[2019-03-07 08:40] LABS: Basophils % (A) 1 %; Eosinophils # (A) 0.1 k/uL (0-0.7); Eosinophils % (A) 1 %; HCT 39.7 % (34.0-46.0); Lymphocytes # (A) 2.9 k/uL (1.0-4.8); Lymphocytes % (A) 42 %; MCHC 32.8 g/dL (31.0-37.0); MCV 97.5 fL (80.0-100.0); Mean Platelet Volume 6.5; Monocytes # (A) 0.3 k/uL (0-1.0); Monocytes % (A) 5 %; Neutrophils # (A) 3.3 k/uL (1.3-7.7); Neutrophils % (A) 48 %; Platelet Count 283 k/uL (150-450); RBC 4.07 m/uL (3.80-5.40); RDW 13.8 % (11.5-15.5)
[2019-03-07 18:30] LABS: African American GFR (CKD) 69.9 (60.0-200.0); Albumin 4.1 g/dL (3.80-4.90); Albumin/Globulin Ratio 1.64 (1.60-3.17); Anion Gap 12.9 mmol/L (4.00-12.00); Calcium 9.2 mg/dL (8.7-10.3); Carbon Dioxide 24.1 mmol/L (21.6-31.8); Chol/HDL Ratio 2.48; Globulin 2.5 g/dL (1.6-3.3); LDL Cholesterol,Calculated 107.4 mg/dL (0.0-131.0); Non-African American GFR(CKD) 60.3 (60.0-200.0); Total Bilirubin 0.4 mg/dL (0.3-1.2); Total Protein 6.6 g/dL (6.2-8.2); VLDL Calculation 21.6 mg/dL (5.00-40.00)
== END | disposition home or self-care (01) ==
LOC: LABWHC1 08:07
PROVIDERS: ATTEND Nurse Practitioner
DX: Z00.00 Encounter for general adult medical examination without abnormal findings (principal)
CPT/HCPCS: 36415; 80053; 80061; 85025

== ENCOUNTER → 2019-03-07 | Outpatient (CLI) | payer BC ==
--- NOTE | 2019-03-07 08:36 | US ---
EXAMINATION TYPE: US abdomen complete DATE OF EXAM: 03/07/2019 COMPARISON: NONE CLINICAL HISTORY: Abd Pain R10.9. Bloating and nausea x 3 months EXAM MEASUREMENTS: Liver Length: 15.1 cm Gallbladder Wall: 0.2 cm CBD: 0.5 cm Spleen: 10.7 cm Right Kidney: 10.5 x 4.6 x 4.9 cm Left Kidney: 10.5 x 4.6 x 4.1 cm Pancreas: wnl, duct seen measuring 0.3cm Liver: wnl Gallbladder: wnl Evidence for sonographic Jacobo's sign: no CBD: visualized portions wnl, limited distally by overlying midline bowel gas Spleen: visualized portions wnl, limited by overlying bowel gas Right Kidney: dilated renal pelvis Left Kidney: 2.1 x 1.7 x 1.8cm cystic area lateral mid pole Upper IVC: wnl Abd Aorta: visualized portions wnl, limited by overlying midline bowel gas The liver is homogenous. The intrahepatic portion of the IVC and proximal abdominal aorta are within normal limits. There is no evidence of cholelithiasis. Common bile duct is unremarkable. The visu alized portions of the pancreas are homogenous. The spleen is unremarkable. There is mild to moderat e right-sided pyelocaliectasis. No left-sided hydronephrosis. Technologist sosa simple appearing 1. 8 cm thin-walled cyst laterally left kidney. IMPRESSION: [id number] right-sided hydronephrosis felt present. Further investigation advised. Consider nuclear medicine renal study or multiphase contrast-enhanced CT.
== END | disposition home or self-care (01) ==
LOC: RADUSWWP 07:30
PROVIDERS: ATTEND Family Medicine
DX: N13.30 Unspecified hydronephrosis (principal)
CPT/HCPCS: 76700

== ENCOUNTER → 2019-05-24 | Outpatient (CLI) | payer BC ==
--- NOTE | 2019-05-24 12:59 | CT ---
EXAMINATION TYPE: CT abdomen pelvis wo con DATE OF EXAM: 05/24/2019 COMPARISON: None HISTORY: Right hydronephrosis. CT DLP: 921 mGycm Examination of the solid and hollow viscera is limited given the lack of contrast. FINDINGS: LUNG BASES: No evidence for nodule. No evidence for infiltrate. LIVER/GB: The gallbladder is unremarkable. No space-occupying hepatic lesion. PANCREAS: No pancreatic mass identified. No inflammatory process seen. SPLEEN: No evidence for splenomegaly. No intrasplenic lesions seen. ADRENALS: No adrenal nodules identified. No evidence for thickening. KIDNEYS: Combination of a subcentimeter hypoattenuating and hyper attenuating lesions in both kidneys . Lesions likely reflect hemorrhagic cysts and/or proteinaceous cysts. No distinct solid mass lesion identified at this time. No nephrolithiasis. No hydronephrosis. BOWEL: Appendix has a normal appearance. No evidence of bowel obstruction. No inflammatory process. Lymph nodes: No evidence for adenopathy greater than 1 cm. Abdominal aorta: Atheromatous changes seen. No evidence for aneurysm. Genital organs: No significant abnormality. Other: No significant abnormality. IMPRESSION: 1.Combination of a subcentimeter hypoattenuating and hyper attenuating lesions in both kidneys. Lesio ns likely reflect hemorrhagic cysts and/or proteinaceous cysts. 2. No evidence for hydronephrosis at this time.
== END | disposition home or self-care (01) ==
LOC: RADCTMAIN 12:26
PROVIDERS: ATTEND Urology
DX: N28.89 Other specified disorders of kidney and ureter (principal)
CPT/HCPCS: 74176

== ENCOUNTER → 2019-08-15 | Outpatient (CLI) | payer BC ==
[2019-08-15 16:54] LABS: Basophils # (A) 0.1 k/uL (0-0.2); Basophils % (A) 1 %; Eosinophils # (A) 0.1 k/uL (0-0.7); Eosinophils % (A) 1 %; HGB 13.1 gm/dL (11.4-16.0); Lymphocytes # (A) 3.7 k/uL (1.0-4.8); Lymphocytes % (A) 38 %; MCH 31.6 pg (25.0-35.0); MCHC 31.9 g/dL (31.0-37.0); MCV 99.3 fL (80.0-100.0); Mean Platelet Volume 7.5; Monocytes # (A) 0.4 k/uL (0-1.0); Monocytes % (A) 4 %; Neutrophils # (A) 5.2 k/uL (1.3-7.7); Neutrophils % (A) 53 %; Platelet Count 298 k/uL (150-450); RBC 4.13 m/uL (3.80-5.40); RDW 13.3 % (11.5-15.5); WBC 9.7 k/uL (3.8-10.6)
[2019-08-16 00:12] LABS: African American GFR (CKD) 69.9 (60.0-200.0); Albumin 4.2 g/dL (3.80-4.90); Albumin/Globulin Ratio 1.83 (1.60-3.17); Anion Gap 9.5 mmol/L (4.00-12.00); Calcium 9.2 mg/dL (8.7-10.3); Carbon Dioxide 25.5 mmol/L (21.6-31.8); Globulin 2.3 g/dL (1.6-3.3); Non-African American GFR(CKD) 60.3 (60.0-200.0); Potassium 4.5 mmol/L (3.5-5.5); Total Bilirubin 0.3 mg/dL (0.3-1.2); Total Protein 6.5 g/dL (6.2-8.2)
== END | disposition home or self-care (01) ==
LOC: LABWHC1 15:26
PROVIDERS: ATTEND Nurse Practitioner
DX: R53.83 Other fatigue (principal)
CPT/HCPCS: 36415; 80053; 85025

== ENCOUNTER → 2019-09-08 | Outpatient (CLI) | payer BC ==
--- NOTE | 2019-09-11 11:28 | MM ---
Reason for exam: screening (asymptomatic). Last mammogram was performed 1 year and 8 months ago. History: Patient is postmenopausal and is nulliparous. Family history of breast cancer in cousin. Taking estrogen for 25 years beginning at age 37. Physical Findings: A clinical breast exam by your physician is recommended on an annual basis and results should be correlated with mammographic findings. MG 3D Screening Mammo W/Cad Bilateral CC and MLO view(s) were taken. Prior study comparison: January 14, 2018, bilateral MG 3d screening mammo w/cad. December 12, 2015, bilateral MG screening mammo w CAD. The breast tissue is heterogeneously dense. This may lower the sensitivity of mammography. No suspicious abnormality. No significant changes when compared with prior studies. ASSESSMENT: Negative, BI-RAD 1 RECOMMENDATION: Routine screening mammogram of both breasts in 1 year.
== END | disposition home or self-care (01) ==
LOC: RADMAMWWP 09:15
PROVIDERS: ATTEND Family Medicine
DX: Z12.31 Encounter for screening mammogram for malignant neoplasm of breast (principal)
CPT/HCPCS: 77063; 77067

== ENCOUNTER → 2020-01-17 | Outpatient (CLI) | payer BC ==
[2020-01-17 08:23] LABS: Basophils % (A) 1 %; Eosinophils # (A) 0.1 k/uL (0-0.7); Eosinophils % (A) 1 %; HCT 40.4 % (34.0-46.0); HGB 13.4 gm/dL (11.4-16.0); Lymphocytes # (A) 4.3 k/uL (1.0-4.8); Lymphocytes % (A) 49 %; MCH 32.6 pg (25.0-35.0); MCHC 33.1 g/dL (31.0-37.0); MCV 98.4 fL (80.0-100.0); Mean Platelet Volume 7.1; Monocytes # (A) 0.3 k/uL (0-1.0); Monocytes % (A) 4 %; Neutrophils # (A) 3.7 k/uL (1.3-7.7); Neutrophils % (A) 42 %; Platelet Count 305 k/uL (150-450); RDW 13.8 % (11.5-15.5); WBC 8.8 k/uL (3.8-10.6)
[2020-01-17 12:15] LABS: T4, Free (Free Thyroxine) 0.9 ng/dL (0.80-1.80)
[2020-01-17 12:18] LABS: Ferritin 96.7 ng/mL (10.0-291.0)
[2020-01-17 13:23] LABS: % Iron Saturation 32.7 (12.00-45.00); African American GFR (CKD) 69.9 (60.0-200.0); Albumin 4.1 g/dL (3.80-4.90); Albumin/Globulin Ratio 1.52 (1.60-3.17); Anion Gap 8.6 mmol/L (4.00-12.00); Carbon Dioxide 25.4 mmol/L (21.6-31.8); Chol/HDL Ratio 2.55; Globulin 2.7 g/dL (1.6-3.3); LDL Cholesterol,Calculated 110.6 mg/dL (0.0-131.0); Non-African American GFR(CKD) 60.3 (60.0-200.0); Potassium 4.3 mmol/L (3.5-5.5); Total Bilirubin 0.5 mg/dL (0.2-1.2); Total Protein 6.8 g/dL (6.2-8.2); VLDL Calculation 25.4 mg/dL (5.00-40.00)
== END | disposition home or self-care (01) ==
LOC: LABWHC1 07:34
PROVIDERS: ATTEND Nurse Practitioner
DX: Z00.00 Encounter for general adult medical examination without abnormal findings (principal); E78.5 Hyperlipidemia, unspecified; N13.30 Unspecified hydronephrosis; R53.83 Other fatigue; I12.9 Hypertensive chronic kidney disease with stage 1 through stage 4 chronic kidney disease, or unspecified chronic kidney disease; N18.3 Chronic kidney disease, stage 3 (moderate); Z78.0 Asymptomatic menopausal state; R42 Dizziness and giddiness
CPT/HCPCS: 36415; 80053; 80061; 82607; 82728; 83540; 83550; 84439; 84443; 84481; 85025

== ENCOUNTER → 2020-01-26 | Outpatient (CLI) | payer BC ==
--- NOTE | 2020-01-26 15:05 | US ---
EXAMINATION TYPE: US kidneys/renal and bladder DATE OF EXAM: 01/26/2020 COMPARISON: NONE CLINICAL HISTORY: N18.3 CKD. CKD stage 3 EXAM MEASUREMENTS: Right Kidney: 11.5 x 4.6 x 4.4 cm Left Kidney: 10.4 x 4.5 x 4.0 cm Right Kidney: dilated renal pelvis Left Kidney: cystic areas noted, largest = 2.4 x 1.8 x 1.9cm Bladder: appears wnl Bilateral Jets seen: yes No nephrolithiasis is seen. No masses are identified. The urinary bladder is anechoic. Bilateral u reteral jets are seen. IMPRESSION: Right-sided hydronephrosis.
== END | disposition home or self-care (01) ==
LOC: RADUSWWP 14:09
PROVIDERS: ATTEND Specialist
DX: N13.30 Unspecified hydronephrosis (principal); I12.9 Hypertensive chronic kidney disease with stage 1 through stage 4 chronic kidney disease, or unspecified chronic kidney disease; N18.3 Chronic kidney disease, stage 3 (moderate); R53.82 Chronic fatigue, unspecified
CPT/HCPCS: 76770

== ENCOUNTER → 2020-02-07 | Outpatient (CLI) | payer BC ==
[2020-02-07 09:03] LABS: Appearance,Urine Clear (Clear); Bilirubin,Urine Negative (Negative); Blood,Urine Negative (Negative); Color,Urine Yellow; Glucose,Urine (UA) Negative (Negative); Ketones,Urine Negative (Negative); Leukocyte Esterase,Urine Negative (Negative); Nitrite,Urine Negative (Negative); Protein,Urine Negative (Negative); Specific Gravity,Urine 1.016 (1.001-1.035); Urobilinogen,Urine <2.0 mg/dL (<2.0)
[2020-02-07 09:22] LABS: Basophils % (A) 1 %; Eosinophils # (A) 0.1 k/uL (0-0.7); Eosinophils % (A) 1 %; HCT 40.7 % (34.0-46.0); HGB 13.1 gm/dL (11.4-16.0); Lymphocytes # (A) 3.7 k/uL (1.0-4.8); Lymphocytes % (A) 45 %; MCH 32.5 pg (25.0-35.0); MCHC 32.2 g/dL (31.0-37.0); MCV 100.7 fL (80.0-100.0); Macrocytosis Slight; Mean Platelet Volume 7.1; Monocytes # (A) 0.4 k/uL (0-1.0); Monocytes % (A) 5 %; Neutrophils # (A) 3.8 k/uL (1.3-7.7); Neutrophils % (A) 46 %; Platelet Count 278 k/uL (150-450); RBC 4.04 m/uL (3.80-5.40); RDW 13.7 % (11.5-15.5); WBC 8.3 k/uL (3.8-10.6)
[2020-02-07 16:49] LABS: African American GFR (CKD) 79.4 (60.0-200.0); Albumin 4.1 g/dL (3.80-4.90); Albumin/Globulin Ratio 1.58 (1.60-3.17); Anion Gap 6.1 mmol/L (4.00-12.00); BUN/Creat Ratio 25.56 Ratio (12.00-20.00); Calcium 9.2 mg/dL (8.7-10.3); Carbon Dioxide 25.9 mmol/L (21.6-31.8); Globulin 2.6 g/dL (1.6-3.3); Non-African American GFR(CKD) 68.5 (60.0-200.0); Potassium 4.3 mmol/L (3.5-5.5); Total Bilirubin 0.5 mg/dL (0.2-1.2); Total Protein 6.7 g/dL (6.2-8.2)
[2020-02-07 17:05] LABS: Hepatitis C IgG Antibody Non-Reactive (Non-Reactive)
[2020-02-07 19:37] LABS: Creatinine,Urine Random 89.4 mg/dL
[2020-02-07 19:41] LABS: Total Protein,Urine Random 10.3 mg/dL (0.0-13.5)
== END | disposition home or self-care (01) ==
LOC: LABWHC1 08:03
PROVIDERS: ATTEND Specialist
DX: I12.9 Hypertensive chronic kidney disease with stage 1 through stage 4 chronic kidney disease, or unspecified chronic kidney disease (principal); N18.3 Chronic kidney disease, stage 3 (moderate); R53.82 Chronic fatigue, unspecified
CPT/HCPCS: 36415; 80053; 81003; 82570; 84156; 85025; 86038; 86160; 86803

== ENCOUNTER → 2020-03-04 | Outpatient (CLI) | payer BC ==
[~2020-03-04] MED LIST changes: +FUROSEMIDE 10 MG/ML 2 ML VIAL IV ONE; -LACTATED RINGERS 1,000 ML IV SCH; -LIDOCAINE 1% 20 ML VIAL (10MG/ML) FOR IV START INTRADERMA PRN
--- NOTE | 2020-03-04 15:44 | US ---
EXAMINATION TYPE: US abdomen limited DATE OF EXAM: 03/04/2020 COMPARISON: US 01/26/2020, CT 05/24/2019 CLINICAL HISTORY: 65-year-old female Renal cyst L. N28.1,N13.30,I10,N18.3,K29.30. TECHNIQUE: Multiple sonographic images of the right upper quadrant are obtained. FINDINGS: EXAM MEASUREMENTS: Liver Length: 14.3 cm Gallbladder Wall: 0.2 cm CBD: 0.8 cm Right Kidney: 9.7 x 4.3 x 4.6 cm Pancreas: Duct visualized measuring 0.3, borderline dilated. Tail obscured by bowel gas Liver: wnl Gallbladder: wnl Evidence for sonographic Jacobo's sign: No CBD: Enlarged, distal portion obscured by bowel gas Right Kidney: No hydronephrosis. Two tiny hypoechoic areas visualized adjacent to each other along t he mid to lower pole cortex measuring 5 mm. IMPRESSION: 1. Dilated bile duct measuring 8 mm. Correlate with alkaline phosphatase and bilirubin levels to excl ude early biliary obstruction. ERCP or MRCP if indicated. If laboratory assessment is normal, follow- up can be performed. 2. The main pancreatic duct is also borderline dilated at 3 mm. This may be chronic postinflammatory change as a sequela of prior episodes of pancreatitis. Clinically correlate. Correlate with amylase a nd lipase levels. This can also be reassessed at follow-up. 3. Multiple lesions within the left kidney seen on CT of 05/24/2019 are not assessed on the current ex am.
--- NOTE | 2020-03-05 09:04 | NM ---
EXAMINATION TYPE: NM lasix renogram DATE OF EXAM: 03/04/2020 COMPARISON: NONE HISTORY: Renal cyst Following administration of 9.2 mCi Tc 99m MAG3 with 20mg Lasix. Immediate images post injection FINDINGS: Left: 37.5 %. Right: 62.5 %. Max renal flow left: 3 minutes. Max renal flow right: 62.5 minutes. Satisfactory accumulation of radiotracer within both renal collecting systems. After the administrati on of Lasix, there is prompt excretion from both collecting systems. T 1/2 left: 11.5 minutes. T 1/2 right: 11 minutes. IMPRESSION: 1. Abnormal split renal function of: 37.5% on the left.
== END | disposition home or self-care (01) ==
LOC: RADUSWWP 12:06
PROVIDERS: ATTEND Specialist
DX: K83.8 Other specified diseases of biliary tract (principal); N28.1 Cyst of kidney, acquired; K29.30 Chronic superficial gastritis without bleeding; I12.9 Hypertensive chronic kidney disease with stage 1 through stage 4 chronic kidney disease, or unspecified chronic kidney disease; N18.3 Chronic kidney disease, stage 3 (moderate); N13.30 Unspecified hydronephrosis
CPT/HCPCS: 76705; 78708; A9562

== ENCOUNTER → 2020-03-13 | Outpatient (CLI) | payer BC | END | disposition home or self-care (01) | LOC: LABWHC1 13:47 | PROVIDERS: ATTEND Specialist | DX: N28.1 Cyst of kidney, acquired (principal); N13.30 Unspecified hydronephrosis; I12.9 Hypertensive chronic kidney disease with stage 1 through stage 4 chronic kidney disease, or unspecified chronic kidney disease; N18.3 Chronic kidney disease, stage 3 (moderate); K29.30 Chronic superficial gastritis without bleeding | CPT/HCPCS: 36415; 84443; 86038 ==

== ENCOUNTER → 2020-04-25 | Outpatient (CLI) | payer BC ==
--- NOTE | 2020-04-25 09:34 | CT ---
EXAMINATION TYPE: CT abdomen w con DATE OF EXAM: 04/25/2020 HISTORY: Obstruction of bile duct, abn US CT DLP: 391.4mGycm Automated Exposure Control for Dose Reduction was Utilized. CONTRAST: CT scan of the abdomen is performed without oral but with IV Contrast, patient injected with 100 mL o f Isovue 370. COMPARISON: CT abdomen and pelvis May 24, 2019. Limited abdominal ultrasound March 04, 2020 FINDINGS: LUNG BASES: No significant abnormality is appreciated. LIVER/GB: Liver remains normal in size. No concerning solid or cystic intrahepatic mass. Gallbladder shows no CT dense intraluminal gallstones. There is no suspicious new intrahepatic or extra hepatic b iliary dilatation. Common bile duct measures up to 7 mm judah hepatis coronal image 47 not significan tly changed from 2019 CT. Likely upper limits of normal to minimally enlarged. PANCREAS: No significant abnormality is seen. SPLEEN: No significant abnormality is seen. ADRENALS: No significant abnormality is seen. KIDNEYS: There is symmetric cortical medullary uptake but delayed excretion from both kidneys. No hyd ronephrosis is noted bilaterally. There are innumerable hypodense lesions scattered throughout both k idneys subcentimeter size felt to reflect thin-walled cyst. Left kidney shows some larger thin-walled cysts. There is upper pole cortical thinning and volume loss left kidney redemonstrated. There are s ome more hyperdense lesions or proteinaceous cysts again seen. There is 2 mm nonobstructing calculus lower pole left kidney coronal image 77. Gradual tapering towards the ampulla noted. BOWEL: A few scattered diverticula greatest in the left colon. No CT evidence for acute diverticuliti s. No suspicious small large bowel dilatation. LYMPH NODES: No greater than 1cm abdominal lymph nodes are appreciated. OSSEOUS STRUCTURES: Slight scoliotic curvature positioning. [id number] facet arthropathy lower lumbar spine. OTHER: No significant additional abnormality is seen. IMPRESSION: No suspicious new intrahepatic or extrahepatic biliary dilatation
== END | disposition home or self-care (01) ==
LOC: RADCTMAIN 08:01
PROVIDERS: ATTEND Internal Medicine Gastroenterology
DX: K83.1 Obstruction of bile duct (principal)
CPT/HCPCS: 74160; Q9967

== ENCOUNTER → 2020-06-20 | Outpatient (CLI) | payer BC ==
--- NOTE | 2020-06-20 09:53 | NM ---
EXAMINATION TYPE: NM hepatobiliary w EF DATE OF EXAM: 06/20/2020 COMPARISON: CT 04/25/2020 HISTORY: Abdomen pain TECHNIQUE: After the intravenous administration of 5.2 mCi Tc 99m Mebrofenin hepatobiliary scintigrap hy is performed. Immediate images post injection. FINDINGS: There is satisfactory initial accumulation of tracer by the liver. The gallbladder is visualized wit hin 12 minutes. The small bowel activity is noted on delayed images. At one hour 8 ounces of oral e nsure plus is given to mimic CCK and gallbladder ejection fraction is calculated at 72 %, in the norm al range. Therefore there is no scintigraphic evidence of cystic or common bile duct obstruction to suggest acute cholecystitis or gallbladder dyskinesia. IMPRESSION: Normal gallbladder ejection fraction, no cystic duct obstruction, additional nonspecific findings above.
== END | disposition home or self-care (01) ==
LOC: RADNMMAIN 06:55
PROVIDERS: ATTEND Family Medicine
DX: R94.8 Abnormal results of function studies of other organs and systems (principal); R10.11 Right upper quadrant pain
CPT/HCPCS: 78226; A9537

== ENCOUNTER → 2020-07-02 | Outpatient (CLI) | payer BC ==
[2020-07-02 12:25] LABS: INR 0.9 (<1.2); Partial Thromboplastin Time 24.2 sec (22.0-30.0); Prothrombin Time 9.4 sec (9.0-12.0)
[2020-07-02 19:57] LABS: ALT 17 U/L (8-44); AST 19 U/L (13-35); African American GFR (CKD) 78.9 (60.0-200.0); Albumin/Globulin Ratio 1.87 (1.60-3.17); Alkaline Phosphatase 83 U/L (41-126); Bilirubin, Conjugated <0.20 mg/dL (0.20-0.40); Globulin 2.3 g/dL (1.6-3.3); Total Bilirubin 0.3 mg/dL (0.2-1.2); Total Protein 6.6 g/dL (6.2-8.2)
== END | disposition home or self-care (01) ==
LOC: LABWHC1 10:40
PROVIDERS: ATTEND Internal Medicine Gastroenterology
DX: K83.1 Obstruction of bile duct (principal)
CPT/HCPCS: 36415; 80076; 82565; 84520; 85610; 85730; 86301

== ENCOUNTER → 2020-07-22 | Outpatient (CLI) | payer BC ==
--- NOTE | 2020-07-22 13:51 | NM ---
EXAMINATION TYPE: NM bone scan whole body DATE OF EXAM: 07/22/2020 COMPARISON: NONE HISTORY: Pain Delayed whole-body scanning was performed following the injection of 25.3 mCi Tc 99m MDP. Images acq uired 3 hours post injection. Abnormal uptake involving the left calcaneus likely post arthritic or hypertrophic spurring. Mild int ensity uptake involving the thoracic spine most likely degenerative. Abnormal uptake involving the sh oulders likely post arthritic. Abnormal uptake involving the left knee is nonspecific. IMPRESSION: 1. Abnormal uptake involving the shoulders and left knee nonspecific but most likely post arthritic. 2. Normal uptake involving the left calcaneus and midfoot could be post arthritic or hypertrophic. 3. Mild increased uptake throughout the thoracic spine with slight curvature most likely degenerative .
== END | disposition home or self-care (01) ==
LOC: RADNMMAIN 09:57
PROVIDERS: ATTEND Internal Medicine
DX: R93.7 Abnormal findings on diagnostic imaging of other parts of musculoskeletal system (principal); M25.50 Pain in unspecified joint; R79.82 Elevated C-reactive protein (CRP); R76.8 Other specified abnormal immunological findings in serum; M79.10 Myalgia, unspecified site
CPT/HCPCS: 78306; A9503

== ENCOUNTER → 2020-11-29 | Outpatient (CLI) | payer BC ==
--- NOTE | 2020-12-02 09:05 | MM ---
Reason for exam: screening (asymptomatic). Last mammogram was performed 1 year and 3 months ago. History: Patient is postmenopausal and is nulliparous. Family history of breast cancer in cousin. Taking estrogen for 25 years beginning at age 37. Physical Findings: A clinical breast exam by your physician is recommended on an annual basis and results should be correlated with mammographic findings. MG 3D Screening Mammo W/Cad Bilateral CC, MLO, and XCCL view(s) were taken. Prior study comparison: September 08, 2019, bilateral MG 3d screening mammo w/cad. January 14, 2018, bilateral MG 3d screening mammo w/cad. There are scattered fibroglandular densities. There is no discrete abnormality. ASSESSMENT: Negative, BI-RAD 1 RECOMMENDATION: Routine screening mammogram of both breasts in 1 year.
== END | disposition home or self-care (01) ==
LOC: RADMAMWWP 09:35
PROVIDERS: ATTEND Family Medicine
DX: Z12.31 Encounter for screening mammogram for malignant neoplasm of breast (principal); Z78.0 Asymptomatic menopausal state; Z80.3 Family history of malignant neoplasm of breast
CPT/HCPCS: 77063; 77067

== ENCOUNTER → 2020-12-06 | Outpatient (CLI) | payer BC ==
[2020-12-06 15:39] LABS: Chol/HDL Ratio 2.84; LDL Cholesterol,Calculated 105.4 mg/dL (0.0-131.0); VLDL Calculation 23.6 mg/dL (5.00-40.00)
== END | disposition home or self-care (01) ==
LOC: LABWHC1 08:44
PROVIDERS: ATTEND Nurse Practitioner
DX: E78.5 Hyperlipidemia, unspecified (principal)
CPT/HCPCS: 36415; 80061

== ENCOUNTER → 2021-01-15 | Outpatient (CLI) | payer BC ==
[2021-01-15 11:01] LABS: HCT 38.4 % (37.2-46.3); HGB 12.6 g/dL (12.0-15.0); MCH 32.3 pg (27.0-32.0); MCHC 32.8 g/dL (32.0-37.0); MCV 98.5 fL (80.0-97.0); Platelet Count 284 X 10*3/uL (140-440); RDW 14.3 % (11.5-14.5); WBC 9.67 X 10*3/uL (4.50-10.00)
[2021-01-15 13:32] LABS: African American GFR (CKD) 78.9 (60.0-200.0); Albumin 4.2 g/dL (3.80-4.90); Albumin/Globulin Ratio 1.62 (1.60-3.17); Anion Gap 8.1 mmol/L (4.00-12.00); BUN/Creat Ratio 16.67 Ratio (12.00-20.00); C Reactive Protein 1.2 mg/dL (0.0-0.8); Calcium 9.3 mg/dL (8.7-10.3); Carbon Dioxide 26.9 mmol/L (21.6-31.8); Globulin 2.6 g/dL (1.6-3.3); Potassium 4.5 mmol/L (3.5-5.5); Total Bilirubin 0.5 mg/dL (0.3-1.2); Total Protein 6.8 g/dL (6.2-8.2)
[2021-01-15 13:47] LABS: Folate, Serum 21.4 ng/mL
[2021-01-15 14:09] LABS: Erythrocyte Sedimentation Rate 29 mm/Hr (0-30)
[2021-01-17 19:54] LABS: Cyclic Citrull Pep IgG Unit <0.5 U/mL; Cyclic Citrullinated Pep IgG NEGATIVE (NEGATIVE)
== END | disposition home or self-care (01) ==
LOC: LABWHC1 07:26
PROVIDERS: ATTEND Internal Medicine
DX: E55.9 Vitamin D deficiency, unspecified (principal); G62.9 Polyneuropathy, unspecified; R53.83 Other fatigue
CPT/HCPCS: 36415; 80053; 82024; 82306; 82533; 82607; 82746; 83520; 84443; 85027; 85652; 86038; 86140; 86200

== ENCOUNTER → 2021-01-20 | Outpatient (CLI) | payer BC | END | disposition home or self-care (01) | DX: G31.9 Degenerative disease of nervous system, unspecified (principal) | CPT/HCPCS: 70450 ==

== ENCOUNTER → 2021-01-22 | Outpatient (CLI) | payer BC ==
[2021-01-22 20:42] LABS: Hemoglobin A1C 5.5 % (4.0-6.0)
== END | disposition home or self-care (01) ==
LOC: LABWHC1 12:47
PROVIDERS: ATTEND Internal Medicine
DX: R73.9 Hyperglycemia, unspecified (principal)
CPT/HCPCS: 36415; 83036

== ENCOUNTER → 2021-03-17 | Outpatient (CLI) | payer BC ==
[2021-03-17 21:31] LABS: Protein, Total 6.9 g/dL (6.2-8.2)
[2021-03-19 14:05] LABS: Albumin 4.05 g/dL (3.80-4.90); Gamma Globulin 1.1 g/dL (0.70-1.50)
== END | disposition home or self-care (01) ==
LOC: LABWHC1 11:06
PROVIDERS: ATTEND Psychiatry & Neurology Pain Medicine
DX: G60.9 Hereditary and idiopathic neuropathy, unspecified (principal); R20.2 Paresthesia of skin
CPT/HCPCS: 36415; 83519; 84165

== ENCOUNTER → 2021-03-18 | Outpatient (CLI) | payer BC ==
[2021-03-18 14:58] LABS: Appearance,Urine Clear (Clear); Bilirubin,Urine Negative (Negative); Blood,Urine Negative (Negative); Color,Urine Light Yellow; Glucose,Urine (UA) Negative (Negative); Ketones,Urine Negative (Negative); Leukocyte Esterase,Urine Negative (Negative); Nitrite,Urine Negative (Negative); PH, Urine 6.5 (5.0-8.0); Protein,Urine Negative (Negative); Specific Gravity,Urine 1.009 (1.001-1.035); Urobilinogen,Urine <2.0 mg/dL (<2.0)
[2021-03-18 23:18] LABS: Basophils # (A) 0.03 X 10*3/uL (0.00-0.10); Basophils % (A) 0.4 %; Eosinophils # (A) 0.04 X 10*3/uL (0.04-0.35); Eosinophils % (A) 0.5 %; HCT 38.7 % (37.2-46.3); HGB 12.7 g/dL (12.0-15.0); Lymphocytes % (A) 46.1 %; MCH 32.1 pg (27.0-32.0); MCHC 32.8 g/dL (32.0-37.0); MCV 97.7 fL (80.0-97.0); Mean Platelet Volume 10.3 fL (9.5-12.2); Monocytes % (A) 5.9 %; Neutrophils # (A) 3.97 X 10*3/uL (1.80-7.70); Neutrophils % (A) 46.9 %; Platelet Count 274 X 10*3/uL (140-440); RBC 3.96 X 10*6/uL (4.10-5.20); RDW 13.5 % (11.5-14.5); WBC 8.46 X 10*3/uL (4.50-10.00)
[2021-03-19 16:53] LABS: African American GFR (CKD) 68.9 (60.0-200.0); Anion Gap 14.3 mmol/L (4.00-12.00); Calcium 10.1 mg/dL (8.7-10.3); Carbon Dioxide 22.7 mmol/L (21.6-31.8); Magnesium 2.1 mg/dL (1.5-2.4); Non-African American GFR(CKD) 59.5 (60.0-200.0); Phosphorus 3.9 mg/dL (2.4-5.1); Potassium 4.2 mmol/L (3.5-5.5)
== END | disposition home or self-care (01) ==
LOC: LABWHC1 14:11
PROVIDERS: ATTEND Specialist
DX: N28.1 Cyst of kidney, acquired (principal); N18.30 Chronic kidney disease, stage 3 unspecified; N13.30 Unspecified hydronephrosis
CPT/HCPCS: 36415; 80048; 81003; 83735; 83970; 84100; 85025

== ENCOUNTER → 2021-04-02 | Outpatient (CLI) | payer BC ==
--- NOTE | 2021-04-02 10:13 | MR ---
EXAMINATION TYPE: MR brain wo/w con DATE OF EXAM: 04/02/2021 COMPARISON: CT brain 01/20/2021 HISTORY: Headache TECHNIQUE: Multiplanar, multisequence images of the brain and brainstem is performed without and with IV contras t, utilizing 7 mL intravenous Gadavist . FINDINGS: Diffusion weighted images demonstrate no evidence of a recent infarct or other diffusion ab normality. There is no extra-axial fluid collection. There are scattered interphalangeal hyperinten sities in the pericallosal, periventricular and subcortical white matter on T2 and inversion recovery sequences. Approximately 20-30 lesions are present. Hyperintensity also noted within the cirilo. The v entricular system and cisternal spaces are normal in size and appearance. The brain volume is age ap propriate, there is cortical atrophy. Probable arachnoid cyst present in the midline posterior to the inferior aspect of the cerebellum shows a stable appearance, measures approximately 2.1 cm x 17 mm x 3.4 cm.. Midline structures demonstrate normal morphology. The craniocervical junction appears within normal limits. Post contrast images demonstrate no abnormal enhancement. The dural venous sinuses appear pa tent. The visualized sinuses are remarkable for inflammatory change within the maxillary sinuses, eth moid air cells and the globes are intact. IMPRESSION: Nonspecific white matter demyelination may be related to chronic small vessel ischemic ch anges. There is age-related atrophy. Sinus disease. Probable posterior fossa arachnoid cyst.
== END | disposition home or self-care (01) ==
LOC: RADMRIMAIN 08:03
PROVIDERS: ATTEND Internal Medicine
DX: G37.9 Demyelinating disease of central nervous system, unspecified (principal); J32.9 Chronic sinusitis, unspecified
CPT/HCPCS: 70553; A9585

== ENCOUNTER 2021-05-29 20:01 | Emergency (ER) | payer BC ==
[2021-05-29 20:57] VITALS: RESP 18
[2021-05-29] MEDS ORDERED: IBUPROFEN 600 MG TAB PO STA (22:55)
[2021-05-29] MEDS ORDERED: PENICILLIN VK 500MG STARTER 4 TAB BTL PO STA (22:55)
[2021-05-29] MEDS ORDERED: PENICILLIN V POTASSIUM 250 MG TAB PO STA (22:55)
--- NOTE | 2021-05-29 22:55 | ED ---
General Adult HPI - General Chief complaint: Fever Stated complaint: Fever and weakness Time Seen by Provider: 05/29/21 22:35 Source: patient, RN notes reviewed Mode of arrival: wheelchair Limitations: no limitations - History of Present Illness Initial comments: Well-appearing 66-year-old female, alert and oriented 4, presents to the emergency room with fevers that started yesterday. She states that she had a tooth extraction on Wednesday this week. She states that they did not put her on antibiotics. She developed a fever, decreased appetite over the past 2 days. She also noted some swelling to the left side of her jaw on the same side as the tooth extraction. She states that she went to [facility] for the fever and they tested her for Covid and is negative. She did get the vaccine in October. She has not had Tylenol or Motrin today. -: days(s) (2) Severity scale (1-10): 0 Improves with: none Worsens with: none Associated Symptoms: fever/chills, loss of appetite Treatments Prior to Arrival: none - Related Data Home Medications Medication Instructions Recorded Confirmed clonazePAM [KlonoPIN] 0.5 mg PO HS PRN 05/21/15 10/24/18 estradioL [Estrace] 1 mg PO QAM 05/21/15 10/24/18 Citalopram Hydrobromide [CeleXA] 40 mg PO DAILY 10/03/17 10/24/18 Pantoprazole [Protonix] 40 mg PO BID 10/24/18 10/24/18 Promethazine HCl 12.5 mg PO DAILY PRN 10/24/18 10/24/18 Previous Rx's Medication Instructions Recorded Lisinopril-Hctz 10-12.5 mg 1 each PO DAILY #30 tab 10/04/17 [Zestoretic 10-12.5] Penicillin V Potassium [Pen Vee K] 500 mg PO QID 7 Days #28 tablet 05/29/21 Allergies Allergy/AdvReac Type Severity Reaction Status Date / Time No Known Allergies Allergy Verified 05/29/21 20:55 Review of Systems ROS Statement: Those systems with pertinent positive or pertinent negative responses have been documented in the HPI. ROS Other: All systems not noted in ROS Statement are negative. Past Medical History Past Medical History: GERD/Reflux, Hypertension, Sleep Apnea/CPAP/BIPAP Additional Past Medical History / Comment(s): HAVING INTERMITTENT PAIN TO ABD AND RECTAL AREA,HEMORRHOIDS,CURRENTLY HAS HEALING COLD SORES,NO LONGER USES CP AP,HYPOGLYCEMIA History of Any Multi-Drug Resistant Organisms: None Reported Past Surgical History: Hernia Repair, Hysterectomy Additional Past Surgical History / Comment(s): SEPTOPLASTY,COLONOSCOPY Past Anesthesia/Blood Transfusion Reactions: No Reported Reaction Past Psychological History: Anxiety, Depression Smoking Status: Never smoker Past Alcohol Use History: Occasional Past Drug Use History: Marijuana - Past Family History Mother Family Medical History: Cancer, Coronary Artery Disease (CAD) Additional Family Medical History / Comment(s): LUNG,HEPATITIS,CABG Father Family Medical History: Diabetes Mellitus Additional Family Medical History / Comment(s): CIRRHOSIS OF LIVER-ALCOHOLISM General Exam Limitations: no limitations General appearance: alert, in no apparent distress Head exam: Present: atraumatic, normocephalic, normal inspection Eye exam: Present: normal appearance, EOMI ENT exam: Present: normal exam, mucous membranes moist Expanded Teeth exam: Present: other (recent Tooth extraction of tooth 18 erythematous and purulent, soft tissue swelling and left lower jaw at site) Neck exam: Present: normal inspection, full ROM. Absent: tenderness, meningismus, lymphadenopathy Respiratory exam: Present: normal lung sounds bilaterally. Absent: respiratory distress, wheezes, rales, rhonchi, stridor Cardiovascular Exam: Present: regular rate, normal rhythm, normal heart sounds. Absent: systolic murmur, diastolic murmur, rubs, gallop, clicks GI/Abdominal exam: Present: soft, normal bowel sounds. Absent: distended, tenderness, guarding, rebound, rigid Neurological exam: Present: alert, oriented X3 Psychiatric exam: Present: normal affect, normal mood Skin exam: Present: warm, dry, intact, normal color. Absent: rash, cyanosis, diaphoretic Course Vital Signs 05/29/21 05/29/21 05/29/21 20:55 23:14 23:17 Temperature 102.8 F H 100 F H Pulse Rate 75 72 Respiratory 18 18 18 Rate Blood Pressure 140/72 136/76 O2 Sat by Pulse 97 98 Oximetry Medical Decision Making - Medical Decision Making Patient had tooth extraction 2 days ago. She developed a fever with left lower jaw swelling over the past 2 days. She states that she has had fever and headache since last week. Her fever, headache and jaw swelling is likely related to the tooth that was extracted. Patient will be placed on antibiotics and directed to follow up with her dentist next week. She was [facility]. She denies any nausea vomiting or diarrhea. Case discussed with Dr. Umaña Disposition Clinical Impression: Dental abscess Disposition: HOME SELF-CARE Condition: Good Instructions (If sedation given, give patient instructions): Dental Abscess (ED) Additional Instructions: Take antibiotics as prescribed and follow-up with your dentist this week. Return to the emergency room if any new or worsening symptoms. Prescriptions: Penicillin V Potassium [Pen Vee K] 500 mg PO QID 7 Days #28 tablet Is patient prescribed a controlled substance at d/c from ED?: No Referrals: Renzo Green MD [Primary Care Provider] - 1-2 days Time of Disposition: 22:54
[2021-05-29 23:14] VITALS: BP 136/76; PULSE 72; TEMP 100
== END 2021-05-29 23:28 | disposition home or self-care (01) ==
LOC: EC 20:01
DX: K04.7 Periapical abscess without sinus (principal); I10 Essential (primary) hypertension; K21.9 Gastro-esophageal reflux disease without esophagitis; F32.9 Major depressive disorder, single episode, unspecified; F41.9 Anxiety disorder, unspecified; F12.90 Cannabis use, unspecified, uncomplicated; Z79.899 Other long term (current) drug therapy; Z83.3 Family history of diabetes mellitus; Z82.49 Family history of ischemic heart disease and other diseases of the circulatory system
CPT/HCPCS: 99283

== ENCOUNTER → 2021-07-22 | Outpatient (CLI) | payer BC | LOC: CPPFTMAIN 11:33 | PROVIDERS: ATTEND Internal Medicine | DX: R06.02 Shortness of breath (principal); Z87.891 Personal history of nicotine dependence | CPT/HCPCS: 94060; 94726; 94729 ==

== ENCOUNTER 2021-08-15 07:49 | Day surgery (SDC) | payer BC ==
[2021-08-12 17:10] VITALS: BMI 24.2
[~2021-08-15 07:49] MED LIST changes: -FUROSEMIDE 10 MG/ML 2 ML VIAL IV ONE; +LACTATED RINGERS 1,000 ML IV SCH; +LIDOCAINE 1% (10MG/ML) FOR IV START INTRADERMA PRN
[2021-08-15] MEDS ORDERED: LIDOCAINE 1% (10MG/ML) FOR IV START INTRADERMA ONE (08:25)
[2021-08-15 08:39] VITALS: TEMP 98.2
[2021-08-15] MEDS ORDERED: LIDOCAINE 1% INJ 10MG/ML (20 ML MDV) ONE (09:03)
[2021-08-15] MEDS ORDERED: PROPOFOL 10 MG/ML 20 ML VIAL IV ONE (09:03)
--- NOTE | 2021-08-15 09:21 | P.PCN ---
Date of Procedure: 08/15/21 Procedure(s) Performed: BRIEF HISTORY: Patient is a 66-year-old pleasant white female scheduled for an elective colonoscopy as a part of evaluation of prior history of colon polyps. Last colonoscopy was 6 years ago. PROCEDURE PERFORMED: Colonoscopy. PREOPERATIVE DIAGNOSIS: History of colon polyps. IV sedation per Anesthesia. PROCEDURE: After informed consent was obtained, the patient, was brought into the endoscopy unit. IV sedation was administered by Anesthesia under continuous monitoring. Digital rectal examination was normal. Initially the Olympus CF-160 flexible video colonoscope was then inserted in the rectum, gradually advanced into the cecum without any difficulty. Careful examination was performed as the scope was gradually being withdrawn. Ileocecal valve and the appendiceal orifice were visualized and appeared normal. Prep was excellent. Mucosa of the cecum, ascending colon, transverse colon, descending colon, sigmoid colon, and rectum appeared normal. Scattered diffuse diverticulosis seen. Retroflexion was performed in the rectum and no lesions were seen. The patient tolerated the procedure well. IMPRESSION: Normal-appearing colon from rectum to cecum with no evidence of colorectal neoplasia Scattered diffuse diverticulosis. RECOMMENDATIONS: Findings of this examination were discussed with the patient as well as her family. She was advised to have a repeat surveillance colonoscopy in 5 years from now because of the prior history of colon polyps.
[2021-08-15 09:26] VITALS: RESP 16
[2021-08-15 09:40] VITALS: BP 116/66; PULSE 54
== END 2021-08-15 10:04 | disposition home or self-care (01) ==
LOC: ORWHC2ENDO 07:49
PROVIDERS: ATTEND Internal Medicine Gastroenterology
DX: K57.90 Diverticulosis of intestine, part unspecified, without perforation or abscess without bleeding (principal); Z86.010 Personal history of colon polyps
CPT/HCPCS: 45378; J2001; J2704

== ENCOUNTER → 2021-09-29 | Outpatient (CLI) | payer BC ==
[2021-09-29 14:37] LABS: Basophils # (A) 0.04 X 10*3/uL (0.00-0.10); Basophils % (A) 0.5 %; Eosinophils # (A) 0.07 X 10*3/uL (0.04-0.35); Eosinophils % (A) 0.8 %; HCT 39.1 % (37.2-46.3); HGB 12.8 g/dL (12.0-15.0); Immature Grans, Automated 0.2 %; Lymphocytes # (A) 4.19 X 10*3/uL (0.90-5.00); Lymphocytes % (A) 48.5 %; MCH 31.3 pg (27.0-32.0); MCHC 32.7 g/dL (32.0-37.0); MCV 95.6 fL (80.0-97.0); Monocytes % (A) 6.9 %; NRBC Per 100 WBC 0 /100 WBCS (0.0-0.0); Neutrophils # (A) 3.72 X 10*3/uL (1.80-7.70); Neutrophils % (A) 43.1 %; Platelet Count 297 X 10*3/uL (140-440); RBC 4.09 X 10*6/uL (4.10-5.20); RDW 13.6 % (11.5-14.5); WBC 8.64 X 10*3/uL (4.50-10.00)
[2021-09-29 15:15] LABS: ALT 20 U/L (8-44); AST 20 U/L (13-35); African American GFR (CKD) 68.9 (60.0-200.0); Albumin 4.5 g/dL (3.8-4.9); Albumin/Globulin Ratio 1.88 (1.60-3.17); Alkaline Phosphatase 74 U/L (41-126); Blood Urea Nitrogen 17.4 mg/dL (9.0-27.0); Calcium 9.4 mg/dL (8.7-10.3); Carbon Dioxide 24.3 mmol/L (20.0-27.5); Chloride 102 mmol/L (96-109); Globulin 2.4 g/dL (1.6-3.3); Glucose 91 mg/dL (70-110); Non-African American GFR(CKD) 59.5 (60.0-200.0); Potassium 4.1 mmol/L (3.5-5.5); Sodium 139 mmol/L (135-145); Total Protein 6.9 g/dL (6.2-8.2)
[2021-09-29 16:13] LABS: Chol/HDL Ratio 2.74 Ratio; LDL Cholesterol,Calculated 139.1 mg/dL (0.0-131.0)
== END | disposition home or self-care (01) ==
LOC: LABWHC1 08:41
PROVIDERS: ATTEND Nurse Practitioner
DX: I12.9 Hypertensive chronic kidney disease with stage 1 through stage 4 chronic kidney disease, or unspecified chronic kidney disease (principal); E78.5 Hyperlipidemia, unspecified; N18.30 Chronic kidney disease, stage 3 unspecified; M79.7 Fibromyalgia; R53.83 Other fatigue
CPT/HCPCS: 36415; 80053; 80061; 85025

== ENCOUNTER → 2022-01-13 | Outpatient (CLI) | payer BC ==
--- NOTE | 2022-01-15 07:49 | MM ---
Reason for Exam: Screening (asymptomatic). Last mammogram was performed 1 year(s) and 1 month(s) ago. Patient History: Menarche at age 14. Patient has no children. Left ovary removed at age 37. Right ovary removed at age 37. Hysterectomy at age 37. Postmenopausal. Currently using Estrogen, beginning at age 37 for 25 years. Maternal cousin had breast cancer. Risk Values: Esthela 5 year model risk: 1.8%. NCI Lifetime model risk: 7.2%. Prior Study Comparison: 01/14/2018 Bilateral Screening Mammogram, [facility]. 09/08/2019 Bilateral Screening Mammogram, [facility]. 11/29/2020 Bilateral Screening Mammogram, [facility]. Tissue Density: The breast tissue is heterogeneously dense. This may lower the sensitivity of mammography. Findings: Analyzed By CAD. No suspicious groups of microcalcifications, spiculated or lobular masses, architectural distortion or other secondary signs of malignancy are mammographically apparent. Overall Assessment: Benign, BI-RAD 2 Management: Screening Mammogram of both breasts in 1 year. A negative mammogram report should not preclude additional follow up of suspicious palpable abnormalities. Patient should continue monthly self breast exam. A clinical breast exam by your physician is recommended on an annual basis and results should be correlated with mammographic findings. Electronically signed and approved by: Cornell Sanchez D.O. Radiologis
== END | disposition home or self-care (01) ==
LOC: RADMAMWWP 09:44
PROVIDERS: ATTEND Family Medicine
DX: Z12.31 Encounter for screening mammogram for malignant neoplasm of breast (principal); Z78.0 Asymptomatic menopausal state; Z80.3 Family history of malignant neoplasm of breast
CPT/HCPCS: 77063; 77067

== ENCOUNTER → 2022-01-13 | Outpatient (CLI) | payer BC ==
[2022-01-13 15:52] LABS: Estradiol 46.5 pg/mL; Testosterone 12.1 ng/mL (7.00-45.62)
== END | disposition home or self-care (01) ==
LOC: LABWHC1 10:15
PROVIDERS: ATTEND Family Medicine
DX: R53.83 Other fatigue (principal); Z78.0 Asymptomatic menopausal state
CPT/HCPCS: 36415; 82670; 84144; 84402; 84403

== ENCOUNTER → 2022-02-03 | Outpatient (CLI) | payer BC ==
--- NOTE | 2022-02-03 11:07 | XR ---
Left foot and left ankle HISTORY: Pain, remote history of trauma 3 views of the left ankle, 3 views the left foot submitted Is hallux valgus deformity, degenerative change present at the first metatarsophalangeal joint. Digit s are flexed. Soft tissue swelling is noted at the ankle. No evident fracture or dislocation. Accesso ry navicular suspected. IMPRESSION: Chronic abnormalities described above. Soft tissue swelling is mild. MRI may be of benefi t.
== END | disposition home or self-care (01) ==
LOC: RADXRMAIN 10:41
PROVIDERS: ATTEND Nurse Practitioner Gerontology
DX: M79.89 Other specified soft tissue disorders (principal)

== ENCOUNTER → 2022-04-09 | Outpatient (CLI) | payer MEDICARE ==
[2022-04-09 18:57] LABS: HCT 38.2 % (37.2-46.3); HGB 12.9 g/dL (12.0-15.0); MCH 31.8 pg (27.0-32.0); MCHC 33.8 g/dL (32.0-37.0); MCV 94.1 fL (80.0-97.0); Mean Platelet Volume 10.4 fL (9.5-12.2); NRBC Per 100 WBC 0 /100 WBCS (0.0-0.0); Platelet Count 294 X 10*3/uL (140-440); RBC 4.06 X 10*6/uL (4.10-5.20); RDW 13.8 % (11.5-14.5); WBC 10.12 X 10*3/uL (4.50-10.00)
[2022-04-09 23:44] LABS: Microalbumin Creatinine Ratio <30 mg/g Creat (0-30); Urine Creatinine 75.5 mg/dL (28.0-217.0)
[2022-04-10 00:53] LABS: Magnesium 2.4 mg/dL (1.5-2.4)
== END | disposition home or self-care (01) ==
LOC: LABWHC1 14:58
PROVIDERS: ATTEND Internal Medicine Nephrology
DX: I12.9 Hypertensive chronic kidney disease with stage 1 through stage 4 chronic kidney disease, or unspecified chronic kidney disease (principal); N28.1 Cyst of kidney, acquired; N18.2 Chronic kidney disease, stage 2 (mild); R80.1 Persistent proteinuria, unspecified
CPT/HCPCS: 36415; 82043; 82306; 82570; 83735; 85027

== ENCOUNTER → 2022-06-17 | Outpatient (CLI) | payer MEDICARE ==
--- NOTE | 2022-06-17 11:08 | US ---
EXAMINATION TYPE: US abdomen complete DATE OF EXAM: 06/17/2022 COMPARISON: NONE CLINICAL HISTORY: R10.9 UNSPECIFIED ABDOMINAL PAIN. pain and nausea TECHNIQUE: Multiple sonographic images of the abdomen are obtained. FINDINGS: EXAM MEASUREMENTS: Liver Length: 11.7 cm Gallbladder Wall: .2 cm CBD: .2 cm Spleen: 9.8 cm Right Kidney: 10.5 x 4.7 x 5.2 cm Left Kidney: 10.4 x 4.4 x 3.5 cm US [employer]ISTRAT[employer] JUDGE NOTES: Pancreas: Duct visualized 3 mm Liver: Increased attenuation Gallbladder: No stones seen Evidence for sonographic Jacobo's sign: No CBD: wnl Spleen: wnl Right Kidney: No hydronephrosis or masses seen Left Kidney: 5 mm echogenic area seen lower pole anechoic area upper pole 2.9 x 1.6 x 2.0 cm. Upper IVC: wnl Abd Aorta: wnl The liver is homogenous. The intrahepatic portion of the IVC and proximal abdominal aorta are within normal limits. There is no evidence of cholelithiasis. Common bile duct is unremarkable. The visu alized portions of the pancreas are homogenous. The spleen is unremarkable. Kidneys are symmetric a nd free of hydronephrosis. IMPRESSION: 1. Nonobstructing calculus left kidney. 2. Simple cyst left kidney. 3. Fatty liver.
== END | disposition home or self-care (01) ==
LOC: RADUSWWP 09:34
PROVIDERS: ATTEND Internal Medicine Geriatric Medicine
DX: N20.0 Calculus of kidney (principal); K76.0 Fatty (change of) liver, not elsewhere classified; N28.1 Cyst of kidney, acquired
CPT/HCPCS: 76700

== ENCOUNTER 2022-08-19 10:46 | Day surgery (SDC) | payer MEDICARE ==
[2022-08-19] MEDS ORDERED: LACTATED RINGERS 1,000 ML IV SCH (11:35)
[2022-08-19] MEDS ORDERED: LIDOCAINE 1% (10MG/ML) FOR IV START INTRADERMA ONE (11:55)
[2022-08-19 11:58] VITALS: TEMP 97.6
[2022-08-19 12:06] LABS: Glucose,Whole Blood 95 mg/dL (70-110)
[2022-08-19] MEDS ORDERED: LIDOCAINE 2% INJ 20 MG/ML (2 ML VIAL) ONE (12:31)
[2022-08-19] MEDS ORDERED: PROPOFOL 10 MG/ML 20 ML VIAL IV ONE (12:31)
--- NOTE | 2022-08-19 12:40 | P.PCN ---
Date of Procedure: 08/19/22 Procedure(s) Performed: BRIEF HISTORY: Patient is a 67-year-old, pleasant, 8 female scheduled for an upper endoscopy as a part of evaluation of long-standing history of gastroesophageal reflux symptoms for which was unremarkable. She was on omeprazole in the past which she quit taking 3 months ago. Lately she has been having worsening symptoms and has intermittent dysphagia to solids. She is hence scheduled for an upper endoscopy with possible dilation today.. PROCEDURE PERFORMED: Esophagogastroduodenoscopy with biopsy. PREOPERATIVE DIAGNOSIS: GERD/dysphagia. IV sedation per anesthesia. PROCEDURE: After informed consent was obtained, the patient was brought into the endoscopy unit. IV sedation was administered by Anesthesia under continuous monitoring. Initially the Olympus GIF-140 video endoscope was inserted into the mouth. Esophagus intubated without any difficulty. It was gradually advanced into the stomach and duodenum and carefully examined. The bulb and the second part of the duodenum appeared normal. The scope at this time was withdrawn to the stomach, adequately insufflated with air, and upon careful examination, mucosa of the antrum, body, cardia and the fundus appeared normal. Small gastric polyps were noted in the gastric body which was biopsied. The scope was then withdrawn into the esophagus. The GE junction was located at 39 cm from the incisors. The esophagus appeared normal. There were no erosions or ulcerations seen, biopsies were done from the distal esophagus and the patient tolerated the procedure well. IMPRESSION: 1. Small gastric polyps 2. Normal-appearing esophagus with no evidence of esophagitis or esophageal stricture RECOMMENDATIONS: The findings of this examination were discussed with the patient as well as a family. She was advised to continue with Protonix 40 mg daily and follow antireflux measures..
[2022-08-19 13:00] VITALS: BP 109/72; PULSE 70
[2022-08-19 13:18] VITALS: RESP 18
== END 2022-08-19 13:18 | disposition home or self-care (01) ==
LOC: ORWHC2ENDO 10:46
PROVIDERS: ATTEND Internal Medicine Gastroenterology
DX: K31.7 Polyp of stomach and duodenum (principal); K21.00 Gastro-esophageal reflux disease with esophagitis, without bleeding; I10 Essential (primary) hypertension; E07.9 Disorder of thyroid, unspecified; Z79.899 Other long term (current) drug therapy; Z79.890 Hormone replacement therapy
CPT/HCPCS: 88305; 43239; J2704; J2001

== ENCOUNTER 2023-01-11 08:50 | Day surgery (SDC) | payer MEDICARE ==
[~2023-01-11 08:50] MED LIST changes: +ALPRAZolam 0.25 MG TAB PO PRN; +ALPRAZolam 0.5 MG TAB PO PRN; +ASPIRIN 325 MG TAB PO STA; +ATORVASTATIN 80 MG TAB PO STA; +HEPARIN SODIUM,PORCINE 10,000 UNIT in SODIUM CHLORIDE 0.9% 1,000 ML IRRIGATION PRN; +HEPARIN SODIUM,PORCINE 2,500 UNIT in SODIUM CHLORIDE 0.9% 250 ML IRRIGATION PRN; -LACTATED RINGERS 1,000 ML IV SCH; -LIDOCAINE 1% (10MG/ML) FOR IV START INTRADERMA PRN; +NITROGLYCERIN SL TABS 0.4 MG TAB SUBLINGUAL PRN; +SODIUM CHLORIDE 0.9% 1,000 ML in EMPTY BAG 1 BAG IV SCH
[2023-01-11 09:17] VITALS: RESP 18; TEMP 98.1
[2023-01-11 09:22] LABS: Basophils % (A) 0 %; Eosinophils # (A) 0.1 k/uL (0-0.7); Eosinophils % (A) 1 %; HCT 39.2 % (34.0-46.0); Lymphocytes # (A) 4.1 k/uL (1.0-4.8); Lymphocytes % (A) 44 %; MCH 31.8 pg (25.0-35.0); MCHC 33.1 g/dL (31.0-37.0); MCV 95.9 fL (80.0-100.0); Mean Platelet Volume 7.7; Monocytes # (A) 0.4 k/uL (0-1.0); Monocytes % (A) 4 %; Neutrophils # (A) 4.3 k/uL (1.3-7.7); Neutrophils % (A) 47 %; Platelet Count 277 k/uL (150-450); RBC 4.09 m/uL (3.80-5.40); RDW 14.4 % (11.5-15.5); WBC 9.2 k/uL (3.8-10.6)
[2023-01-11 10:14] LABS: African American GFR (CKD) 79 (>60 ml/min/1.73 sqM); Anion Gap 6 mmol/L; Blood Urea Nitrogen 18 mg/dL (7-17); Calcium 8.1 mg/dL (8.4-10.2); Carbon Dioxide 27 mmol/L (22-30); Chloride 105 mmol/L (98-107); Glucose 93 mg/dL (74-99); Non-African American GFR(CKD) 68 (>60 ml/min/1.73 sqM); Potassium 4.3 mmol/L (3.5-5.1); Sodium 138 mmol/L (137-145)
[2023-01-11] MEDS ORDERED: HEPARIN SODIUM 1,000 UN/ML (10ML VL) ONE (10:33)
[2023-01-11] MEDS ORDERED: NITROGLYCERIN SL TABS 0.4 MG TAB SUBLINGUAL ONE ×2 (10:52→10:53)
[2023-01-11] MEDS: MIDAZOLAM 2 MG/2 ML VIAL IV ONE ×2 (10:53→10:55)
[2023-01-11] MEDS ORDERED: LIDOCAINE 1% INJ 10MG/ML (5 ML VIAL-PF) SQ ONE (10:54)
[2023-01-11] MEDS ORDERED: VERAPAMIL SYRINGE (5 MG/10 ML) INTRAARTER ONE (10:58)
[2023-01-11] MEDS ORDERED: HEPARIN SODIUM 1,000 UN/ML (10ML VL) IV ONE (11:00)
[2023-01-11] MEDS ORDERED: IOPAMIDOL-370 100ML BTL INJ ONE (11:08)
--- NOTE | 2023-01-11 12:02 | CC ---
CARDIAC CATHETERIZATION REPORT DATE OF SERVICE: 01/11/2023. PROCEDURE PERFORMED: Left heart catheterization and coronary angiography. PERFORMED BY: Dr. Fidel Hernandez. ANESTHESIA: Moderate conscious sedation time was 17 minutes. The patient was administered Versed. Oxygen saturation, hemodynamics, and EKG were monitored closely. CLINICAL INFORMATION: Ms. Lisbet Blackmon is a lady with a history of hypertension and chest tightness and pressure with a positive regular stress test. She was placed on Imdur and metoprolol and brought in for the procedure because of an abnormal stress test. PROCEDURE NOTE: Under local anesthesia and strict aseptic precautions, a 6-Spanish introducer was placed in the right radial artery. Using a JL3.5 and JR4 catheters, I performed coronary angiography, and the same right catheter was used to check LV pressure, but LV-gram was not performed. The sheath was taken out, and a Vasc band was applied as per protocol. Saturation in the fingers of the right hand was 94%. The patient tolerated the procedure well without complications. CARDIAC CATHETERIZATION FINDINGS: The left ventricular end-diastolic pressure was 6 mmHg without any gradient across aortic valve. CORONARY ANGIOGRAPHY FINDINGS: RIGHT CORONARY ARTERY: This is a small, nondominant vessel with minor irregularities, no significant disease. Supplies a limited amount of myocardium. Bifurcates into 2 branches distally. LEFT MAIN CORONARY ARTERY: This is a short, patent vessel, free of significant disease. Bifurcates into LAD and circumflex. LEFT ANTERIOR DESCENDING CORONARY ARTERY: Good-caliber vessel, extends along the anterior wall, gives off small septal and diagonal branches, runs all the way to the apex. Gives off additional secondary diagonal and septal branches and runs all the way to the apex. Has minor irregularities, but no significant obstructive CAD. There is no more than a 30% to 35% narrowing. LAD is generally free of significant disease. LEFT POSTERIOR CIRCUMFLEX CORONARY ARTERY: Dominant vessel, gives off 2 obtuse marginal branches and then a distal posterolateral branch, has minor irregularities, no significant disease. The distal branches have mild diffuse disease, but overall, no significant disease in the circumflex system. LEFT VENTRICULOGRAM: Not performed. FINAL IMPRESSION: This patient has normal filling pressures, no gradient. Left dominant system, has minor irregularities in left anterior descending and circumflex. Right is small and nondominant. No significant coronary artery disease. RECOMMENDATIONS: The patient's positive stress test was a false positive one or probably she has small vessel disease. We will treat her, therefore, with calcium channel blockers and nitrates and do aggressive risk factor modification including aspirin and Lipitor to keep LDL cholesterol close to 70. Discussed my thoughts in detail with the patient. I also spoke to her daughter, Theresa by phone. The patient can be discharged later on today. MMANTHONYL / [place]: [id number] /
[2023-01-11] MEDS ORDERED: SODIUM CHLORIDE 0.9% 1,000 ML IV SCH (13:45)
[2023-01-11 15:13] VITALS: BP 144/62; PULSE 54
[2023-01-12] MEDS ORDERED: ASPIRIN 81 MG PO SCH (09:00)
[2023-01-12] MEDS ORDERED: ATORVASTATIN 40 MG TAB PO SCH (09:00)
== END 2023-01-11 15:05 | disposition home or self-care (01) ==
LOC: CATHCVL 08:50
PROVIDERS: ATTEND Internal Medicine Interventional Cardiology
DX: R94.39 Abnormal result of other cardiovascular function study (principal); I10 Essential (primary) hypertension
CPT/HCPCS: 93458; 80048; 85025; C1769 ×2; C1894; J2250; J2001; J1644; Q9967

== ENCOUNTER → 2023-01-14 | Outpatient (CLI) | payer MEDICARE ==
--- NOTE | 2023-01-14 09:12 | BD ---
EXAMINATION TYPE: Axial Bone Density DATE OF EXAM: 01/14/2023 CLINICAL HISTORY: 67 years old Female. 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 History of Fracture in Adulthood: no Secondary Osteoporosis: 1. Type 1 Diabetes: no 2. Hyperthyroidism: no 3. Menopause before 45: yes 4. Malnutrition: no 5. Chronic liver disease: no Rheumatoid Arthritis: no Current Tobacco Use: no RISK FACTORS HISTORY OF: Surgery to Spine/Hip(right/left)/Wrist (right/left): no Family History of Osteoporosis: yes Active: no Diet low in dairy products/other sources of calcium: yes Postmenopausal woman: yes Take estrogen and/or progesterone medications: yes How long: since age 37 Lost more than 2 inches in height since high school: no MEDICATIONS: Additional History: EXAM MEASUREMENTS: Bone mineral densitometry was performed using the [employer] System. Bone mineral density as measured about the Lumbar spine is: ----- L1-L4(G/cm2): 1.071 T Score Values are as follows: ----- L1: -1.1 ----- L2: -1.3 ----- L3: -0.5 ----- L4: -0.9 ----- L1-L4: -0.9 Z Score Values are as follows: ----- L1: 0.3 ----- L2: 0.1 ----- L3: 0.9 ----- L4: 0.5 ----- L1-L4: 0.5 Bone mineral density has: increased 4.1 % since study of: 12.12.2015 Bone mineral density about the R hip (g/cm2): 0.828 Bone mineral density about the L hip (g/cm2): 0.767 T Score values are as follows: -----R Neck: -2.0 -----L Neck: -2.3 -----R Total: -1.4 -----L Total: -1.9 Z Score values are as follows: -----R Neck: -0.6 -----L Neck: -0.9 -----R Total: -0.3 -----L Total: -0.8 Bone mineral density has: decreased -2.3 % since study of: 2016 FRAX%s: The graph provided illustrates a 12.5 % chance for a major osteoporotic fx and a 2.4% chance for the hips probability for fx in 10 years time. IMPRESSION: Osteopenia (T Score between -2.5 and -1). There is slightly increased risk of fracture and the patient may be considered for treatment. Re-Screen 2-5 years. NOTE: T-SCORE=SD OF THE YOUNG ADULT MEAN.
--- NOTE | 2023-01-15 16:15 | MM ---
Reason for Exam: Screening (asymptomatic). Last screening mammogram was performed 12 month(s) ago. Patient History: Menarche at age 14. Patient has no children. Left ovary removed at age 37. Right ovary removed at age 37. Hysterectomy at age 37. Postmenopausal. Currently using Estrogen, beginning at age 37 for 25 years. Maternal cousin had breast cancer. Risk Values: Esthela 5 year model risk: 1.8%. NCI Lifetime model risk: 6.9%. Prior Study Comparison: 09/08/2019 Bilateral Screening Mammogram, [facility]. 11/29/2020 Bilateral Screening Mammogram, [facility]. 01/13/2022 Bilateral MG 3D screening mammo w/cad, [facility]. Tissue Density: The breast tissue is heterogeneously dense. This may lower the sensitivity of mammography. Findings: Analyzed By CAD. Pattern appears symmetrical and stable. No significant interval change is evident No suspicious groups of microcalcifications, spiculated or lobular masses, architectural distortion or other secondary signs of malignancy are mammographically apparent. Overall Assessment: Benign, BI-RAD 2 Management: Screening Mammogram of both breasts in 1 year. A negative mammogram report should not preclude additional follow up of suspicious palpable abnormalities. Patient should continue monthly self breast exam. A clinical breast exam by your physician is recommended on an annual basis and results should be correlated with mammographic findings. Electronically signed and approved by: Cornell Sanchez D.O. Radiologis
== END | disposition home or self-care (01) ==
LOC: RADMAMWWP 08:19
PROVIDERS: ATTEND Internal Medicine Geriatric Medicine
DX: Z12.31 Encounter for screening mammogram for malignant neoplasm of breast (principal); M81.0 Age-related osteoporosis without current pathological fracture; M85.89 Other specified disorders of bone density and structure, multiple sites; Z80.3 Family history of malignant neoplasm of breast; Z78.0 Asymptomatic menopausal state
CPT/HCPCS: 77063; 77067; 77080

== ENCOUNTER → 2023-01-14 | Outpatient (CLI) | payer MEDICARE ==
--- NOTE | 2023-01-14 11:14 | MR ---
EXAMINATION TYPE: MR angio head wo con DATE OF EXAM: 01/14/2023 10:35 AM CLINICAL INDICATION:Female, 67 years old with history of R47.1; Brain Aneurysm COMPARISON: CT 01/20/2021 MR 04/02/2021 Technical: MRA brain: 2D and 3-D [id number] Axial with MIP and 3-D reconstruction. Performed on a separate w orkstation. IV Contrast: None Findings: Vertebral arteries: The vertebral arteries are patent. Vertebral arteries are: Left dominant. Basilar artery: The basilar artery is intact. The basilar artery bifurcation is normal. Internal Carotid arteries: Right 4 x 2 mm aneurysm involving the siphon just past the cavernous porti on DESTINEY: Patent with no evidence of aneurysm. ACOM: Present without evidence of aneurysm. MCA: Patent with no evidence of aneurysm. TOUR AGENT: Patent with no evidence of aneurysm. PCOM: Hypoplastic bilaterally. 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
== END | disposition home or self-care (01) ==
LOC: RADMRIMAIN 09:59
PROVIDERS: ATTEND Psychiatry & Neurology Neurology
DX: I72.0 Aneurysm of carotid artery (principal); R47.1 Dysarthria and anarthria; R20.2 Paresthesia of skin; R51.9 Headache, unspecified
CPT/HCPCS: 70544

== ENCOUNTER 2023-06-27 18:04 | Emergency (ER) | payer MEDICARE ==
[2023-06-27 18:20] VITALS: TEMP 98.1
--- NOTE | 2023-06-27 18:22 | ED ---
Chest Pain HPI - General Source: patient, RN notes reviewed Mode of arrival: ambulatory Limitations: no limitations <Cintia Cortes - Last Filed: 06/27/23 18:21> - History of Present Illness MD Complaint: chest pain Onset/Timin -: hour(s) Onset: after eating Pain Location: substernal, epigastric Pain Radiation: none Severity: mild Quality: other (Burning/ bloating) Consistency: constant Improves With: nothing Worsens With: nothing Treatments Prior to Arrival: nitroglycerin <Moises Del Castillo - Last Filed: 07/06/23 07:40> - General Chief Complaint: Chest Pain Stated Complaint: chest pains sob numbness in mouth slurring words Time Seen by Provider: 06/27/23 18:21 - History of Present Illness Initial Comments: patient is 68-year-old female presented ER chief complaint of chest breath and chest pain. Patient states that if afternoon. Patient also endorses the numbness and tingling sensation to her face. Patient does have a cardiac history. Patient denies any fevers or chills. (Cintia Cortes) Shouldn't is a 68-year-old woman who presents to have evaluation of substernal chest discomfort going down to the epigastrium. She states that it had come on after she had eaten. She is also feeling bloated. Patient states it came on after she had eaten in the morning and she just hasn't been able to shake it. She did take nitroglycerin that didn't really affect the symptoms. She has not had associated symptoms, no dyspnea, diaphoresis, nausea vomiting, palpitations, lightheadedness or syncope. (Moises Del Castillo) - Related Data Home Medications Medication Instructions Recorded Confirmed clonazePAM [KlonoPIN] 0.5 mg PO HS 05/21/15 01/11/23 estradioL [Estrace] 1 mg PO QAM 05/21/15 01/11/23 Escitalopram Oxalate [Lexapro] 20 mg PO QAM 08/12/21 01/11/23 amLODIPine BESYLATE 5 mg PO QAM 08/12/21 01/11/23 busPIRone HCL [Buspirone HCl] 5 mg PO TID 08/17/22 01/11/23 Isosorbide Mononitrate [Isosorbide 15 mg PO 1200 01/07/23 01/11/23 Mononitrate ER] Magnesium 250 mg PO DAILY PRN 01/07/23 01/11/23 Metoprolol Tartrate 12.5 mg PO QAM 01/07/23 01/11/23 Aspirin 325 mg PO DAILY PRN 01/11/23 01/11/23 Allergies Allergy/AdvReac Type Severity Reaction Status Date / Time No Known Allergies Allergy Verified 06/27/23 18:12 Review of Systems ROS Other: All systems not noted in ROS Statement are negative. <Cintia Cortes - Last Filed: 06/27/23 18:21> ROS Other: All systems not noted in ROS Statement are negative. Constitutional: Denies: fever, chills Respiratory: Denies: cough, dyspnea Cardiovascular: Reports: chest pain. Denies: palpitations, orthopnea, edema, syncope Gastrointestinal: Denies: abdominal pain, nausea, vomiting Genitourinary: Denies: dysuria Musculoskeletal: Denies: back pain Skin: Denies: rash Neurological: Denies: headache, weakness <Moises Del Castillo - Last Filed: 07/06/23 07:40> ROS Statement: Those systems with pertinent positive or pertinent negative responses have been documented in the HPI. EKG Findings - EKG Results: EKG: interpreted by ERMD, sinus rhythm (Rate 63 bpm), normal axis - Blocks, Mcintyre, Hypertrophy, ST Abn: Repolarization changes or abnormalities: nonspecific abnormality, ST segment, and/or T wave <Moises Del Castillo - Last Filed: 07/06/23 07:40> Past Medical History Past Medical History: GERD/Reflux, Hyperlipidemia, Hypertension, Renal Disease Additional Past Medical History / Comment(s): Abnormal stress test, fatigue, SOB with exertion, "twinges of chest pain". Past bradycardia, L kidney functions at 37%, hemorrhoids, past hypoglycemia History of Any Multi-Drug Resistant Organisms: None Reported Past Surgical History: Hernia Repair, Hysterectomy Additional Past Surgical History / Comment(s): SEPTOPLASTY, COLONOSCOPY, R inguinal hernia Past Anesthesia/Blood Transfusion Reactions: No Reported Reaction Additional Past Anesthesia/Blood Transfusion Reaction / Comment(s): Pt has never received blood. Past Psychological History: Anxiety, Depression Smoking Status: Former smoker - Past Family History Mother Family Medical History: Cancer, Coronary Artery Disease (CAD), Liver Disease Additional Family Medical History / Comment(s): Lung cancer,HEPATITIS,CABG Father Family Medical History: Diabetes Mellitus, Liver Disease Additional Family Medical History / Comment(s): CIRRHOSIS OF LIVER-ALCOHOLISM <Cintia Cortes - Last Filed: 06/27/23 18:21> General Exam Limitations: no limitations <Cintia Cortes - Last Filed: 06/27/23 18:21> Limitations: no limitations General appearance: alert, in no apparent distress Head exam: Present: atraumatic, normocephalic Eye exam: Present: normal appearance. Absent: scleral icterus, conjunctival injection Neck exam: Present: normal inspection Respiratory exam: Present: wheezes (There is a trace expiratory wheeze). Absent: respiratory distress, rales, rhonchi, stridor, accessory muscle use Cardiovascular Exam: Present: regular rate, normal rhythm, normal heart sounds. Absent: systolic murmur, diastolic murmur, rubs, gallop GI/Abdominal exam: Present: soft. Absent: distended, tenderness, guarding, rebound, rigid, mass Extremities exam: Present: normal inspection, normal capillary refill. Absent: pedal edema, calf tenderness Back exam: Present: normal inspection. Absent: CVA tenderness (R), CVA tenderness (L) Neurological exam: Present: alert Skin exam: Present: warm, dry, intact, normal color. Absent: rash <Moises Del Castillo - Last Filed: 07/06/23 07:40> - General Exam Comments Initial Comments: Visual Physical Exam Vital signs reviewed General: Well-appearing, nontoxic, no acute distress. Head: Normocephalic, atraumatic Eyes: PERRLA, EOMI ENT: Airway patent Chest: Nonlabored breathing Skin: No visual rash, normal skin tone Neuro: Alert and oriented 3 Musculoskeletal: No gross abnormalities (Cintia Cortes) Course Vital Signs 06/27/23 06/27/23 18:07 23:20 Temperature 98.1 F Pulse Rate 72 64 Respiratory 22 18 Rate Blood Pressure 174/78 179/80 O2 Sat by Pulse 97 98 Oximetry Chest Pain MDM <Cintia Cortes - Last Filed: 06/27/23 18:21> <Moises Del Castillo - Last Filed: 07/06/23 07:40> - [facility] I performed the quick note portion of the exam. Electronically signed by Cintia Cortes PA-C (Cintia Cortes) Patient had chest x-ray which I interpreted as negative for acute infiltrate, cardiomegaly, congestive heart failure Was pt. sent in by a medical professional or institution (, [employer], BELT MAKER HELPER, urgent ca re, hospital, or long-term...) When possible be specific @ -[No] Did you speak to anyone other than the patient for history (EMS, parent, family, police, friend...)? What history was obtained from this source @ -[No] Did you review nursing and triage notes (agree or disagree)? Why? @ -[I reviewed and agree with nursing and triage notes] Were old charts reviewed (outside hosp., previous admission, EMS record, old EKG, old radiological studies, urgent care reports/EKG's, long-term records)? Report findings @ -[No old charts were reviewed] Differential Diagnosis (chest pain, altered mental status, abdominal pain women, abdominal pain men, vaginal bleeding, weakness, fever, dyspnea, syncope, headache, dizziness, GI bleed, back pain, seizure, CVA, palpatations, mental health, musculoskeletal)? @ -[Differential Chest Pain: Stable Angina, Unstable Angina, STEMI, NSTEMI Aortic Dissection, Pneumothorax, Musculoskeletal, Esophageal Spasm GERD, Cholecystitis, Pancreatitis, Zoster, this is not meant to be an all-inclusive list. EKG interpreted by me (3pts min.). @ -[As above] X-rays interpreted by me (1pt min.). @ -[I interpreted as above CT interpreted by me (1pt min.). @ -[None done] U/S interpreted by me (1pt. min.). @ -[None done] What testing was considered but not performed or refused? (CT, X-rays, U/S, labs)? Why? @ -[None] What meds were considered but not given or refused? Why? @ -[None] Did you discuss the management of the patient with other professionals (professionals i.e. [employer] Maciel, BELT MAKER HELPER, lab, RT, psych nurse, nephrology social worker, neurodiagnostic tech, teacher, code enforcement officer, case fitter)? Give summary @ -[No] Was smoking cessation discussed for >3mins.? @ -[No] Was critical care preformed (if so, how long)? @ -[No] Were there social determinants of health that impacted care today? How? (Homelessness, low income, unemployed, alcoholism, drug addiction, transportation, low edu. Level, literacy, decrease access to med. care, correction, rehab)? @ -[No] Was there de-escalation of care discussed even if they declined (Discuss DNR or withdrawal of care, Hospice)? DNR status @ -[No] What co-morbidities impacted this encounter? (DM, HTN, Smoking, COPD, CAD, Cancer, CVA, ARF, Chemo, Hep., AIDS, mental health diagnosis, sleep apnea, morbid obesity)? @ -[None] Was patient admitted / discharged? Hospital course, mention meds given and route, prescriptions, significant lab abnormalities, going to OR and other pertinent info. @ -[The patient is a 68-year-old woman presenting with chest pain that appears to be esophageal in nature. As a precaution, two troponin results are obtained which are negative. The patient was feeling better following medication here and would like to go home. We discussed appropriate further care and follow-up Undiagnosed new problem with uncertain prognosis? @ -[No] Drug Therapy requiring intensive monitoring for toxicity (Heparin, Nitro, Insulin, Cardizem)? @ -[No] Were any procedures done? @ -[No] Diagnosis/symptom? @ -[Acute chest pain Acute, or Chronic, or Acute on Chronic? @ -[Acute Uncomplicated (without systemic symptoms) or Complicated (systemic symptoms)? @ -[Uncomplicated Side effects of treatment? @ -[No] Exacerbation, Progression, or Severe Exacerbation? @ -[No] Poses a threat to life or bodily function? How? (Chest pain, [place], [place], pneumonia, PE, COPD, DKA, ARF, appy, cholecystitis, CVA, Diverticulitis, Homicidal, Suicid al, threat to staff... and all critical care pts) @ -[No] (Moises Del Castillo) Disposition <Cintia Cortes - Last Filed: 06/27/23 18:21> Is patient prescribed a controlled substance at d/c from ED?: No <Moises Del Castillo - Last Filed: 07/06/23 07:40> Clinical Impression: Chest pain Disposition: HOME SELF-CARE Condition: Good Instructions (If sedation given, give patient instructions): Chest Pain (ED) Referrals: Laney Kaye NPC [Nurse Practitioner] - 1-2 days
[2023-06-27 19:19] LABS: Basophils # (A) 0.1 k/uL (0-0.2); Basophils % (A) 1 %; Eosinophils # (A) 0.1 k/uL (0-0.7); Eosinophils % (A) 1 %; HCT 39.7 % (34.0-46.0); HGB 13.5 gm/dL (11.4-16.0); Lymphocytes # (A) 4.5 k/uL (1.0-4.8); Lymphocytes % (A) 44 %; MCH 32.4 pg (25.0-35.0); MCV 95.5 fL (80.0-100.0); Mean Platelet Volume 7.8; Monocytes # (A) 0.3 k/uL (0-1.0); Monocytes % (A) 3 %; Neutrophils % (A) 49 %; Platelet Count 276 k/uL (150-450); RBC 4.16 m/uL (3.80-5.40); WBC 10.2 k/uL (3.8-10.6)
[2023-06-27 19:45] LABS: ALT 21 U/L (4-34); AST 27 U/L (14-36); African American GFR (CKD) 77 (>60 ml/min/1.73 sqM); Albumin 4.5 g/dL (3.5-5.0); Alkaline Phosphatase 87 U/L (38-126); Anion Gap 13 mmol/L; Blood Urea Nitrogen 18 mg/dL (7-17); Calcium 9.8 mg/dL (8.4-10.2); Carbon Dioxide 24 mmol/L (22-30); Chloride 102 mmol/L (98-107); Glucose 137 mg/dL (74-99); Magnesium 2.3 mg/dL (1.6-2.3); Non-African American GFR(CKD) 67 (>60 ml/min/1.73 sqM); Potassium 3.7 mmol/L (3.5-5.1); Sodium 139 mmol/L (137-145); Total Bilirubin 0.4 mg/dL (0.2-1.3); Total Protein 7.7 g/dL (6.3-8.2)
[2023-06-27 19:54] LABS: NT-Pro-B-Type Natriuretic Pept 398 pg/mL
[2023-06-27 20:12] LABS: INR 0.9 (<1.2); Partial Thromboplastin Time 24.3 sec (22.0-30.0)
--- NOTE | 2023-06-27 21:25 | XR ---
EXAMINATION TYPE: XR chest 2V DATE OF EXAM: 06/27/2023 COMPARISON: 10/03/2017 HISTORY: 68-year-old female with chest pain and shortness of breath TECHNIQUE: PA and lateral views FINDINGS: The cardiomediastinal silhouette, aorta, and pulmonary vasculature are within normal limits. Biapical pleural-parenchymal scarring is present. Otherwise, lungs and pleural spaces are clear. IMPRESSION: Biapical pleural-parenchymal scarring. Otherwise, no acute process seen.
[2023-06-27] MEDS ORDERED: MAG HYDROX/AL HYDROX/SIMETH 30 ML, HYOSCYAMINE ELIXIR 10 ML, LIDOCAINE 2% GLYDO JELLY 1... PO STA ×3 (21:34)
[2023-06-27 23:36] VITALS: BP 179/80; PULSE 64; RESP 18
[2023-06-28] MEDS ORDERED: METOCLOPRAMIDE 10 MG TAB PO STA (01:59)
== END 2023-06-28 02:09 | disposition home or self-care (01) ==
LOC: EC 18:04
DX: I45.10 Unspecified right bundle-branch block (principal); E78.5 Hyperlipidemia, unspecified; I10 Essential (primary) hypertension; F32.A Depression, unspecified; F41.9 Anxiety disorder, unspecified; Z87.891 Personal history of nicotine dependence; Z79.82 Long term (current) use of aspirin; Z79.899 Other long term (current) drug therapy
CPT/HCPCS: 36415; 71046; 80053; 83735; 83880; 84484; 85025; 85379; 85610; 85730; 93005; 99285

== ENCOUNTER → 2023-06-30 | Outpatient (CLI) | payer MEDICARE ==
--- NOTE | 2023-06-30 17:05 | US ---
EXAMINATION TYPE: US thyroid st tissue head/neck DATE OF EXAM: 06/30/2023 COMPARISON: NONE CLINICAL INDICATION: Female, 68 years old with history of E04.9 GOITER; Goiter GLAND SIZE: Right Lobe: 4.0 x 1.8 x 1.7 cm Overall Parenchyma: homogeneous Left Lobe: 4.3 x 2.1 x 1.4 cm Overall Parenchyma: homogeneous Isthmus Thickness: 0.2 cm NODULES RIGHT: # of nodules measured on right: 0 - calcification upper pole = 0.3cm LEFT: # of nodules measured on left: 0 ISTHMUS: # of nodules measured in the isthmus: 0 Bilateral neck scanned, no evidence of lymphadenopathy. IMPRESSION: No suspicious thyroid nodules.
== END | disposition home or self-care (01) ==
LOC: RADUSWWP 14:13
PROVIDERS: ATTEND Allergy & Immunology
DX: E04.9 Nontoxic goiter, unspecified (principal)
CPT/HCPCS: 76536

== ENCOUNTER → 2023-09-13 | Outpatient (CLI) | payer MEDICARE ==
[2023-09-13 08:04] LABS: African American GFR (CKD) 78 (>60 ml/min/1.73 sqM); Blood Urea Nitrogen 17 mg/dL (7-17); Non-African American GFR(CKD) 68 (>60 ml/min/1.73 sqM)
--- NOTE | 2023-09-13 10:03 | CT ---
EXAMINATION TYPE: CT abdomen pelvis w con DATE OF EXAM: 09/13/2023 COMPARISON: 04/25/2020 HISTORY: 68-year-old female abdominal pain, stomach issues, indigestion x 1 year TECHNIQUE: Contiguous axial scanning of the abdomen and pelvis following administration of 100 ml Iso altagracia 300 IV contrast. Delayed images through the kidneys and coronal/sagittal reconstructions perform ed. CT DLP: 474.6 mGycm Automated exposure control for dose reduction was used. FINDINGS: Heart limits of normal in size without pericardial effusion. Lung bases clear without pleural effusio n. A focal liver lesion or biliary ductal dilatation. Portal venous system is patent. Gallbladder, adrenal glands, spleen, and pancreas within normal limits. Nonobstructive 4 mm left lower pole renal calculus. Symmetric uptake and excretion of contrast from b oth kidneys. Numerous small cortical cysts are present, larger on the left measuring up to 2.1 cm. No dilated small bowel, free fluid, or free air. No mesenteric or retroperitoneal lymphadenopathy. Normal appendix. Oral contrast progressed to the ascending colon. Scattered [id number] stool. There is diffuse wall thickening of the colon with mucosal hyperemia extending from the rectum to the hepatic flexure of the colon. Left-sided colonic diverticulosis, greatest in the sigmoid colon but no focal pericolonic inflammator y change to indicate acute diverticulitis. Bladder nondistended. Uterus surgically absent. Neither ovary clearly identified. No abnormal fluid c ollection the pelvis or pelvic lymphadenopathy. Bones: Mild facet arthropathy. IMPRESSION: 1. MILD TO MODERATE LONG SEGMENT COLITIS EXTENDING FROM THE RECTUM UP TO THE HEPATIC FLEXURE OF THE C OLON. CONSIDER INFECTIOUS OR INFLAMMATORY ETIOLOGIES INCLUDING THE POSSIBILITY OF IBD. 2. LEFT-SIDED COLONIC DIVERTICULOSIS BUT WITHOUT ANY FOCAL INFLAMMATION TO CLEARLY INDICATE ACUTE DIV ERTICULITIS. 3. A 4 MM NONOBSTRUCTIVE LEFT RENAL CALCULUS. NUMEROUS BILATERAL RENAL CORTICAL CYSTS REDEMONSTRATED.
== END | disposition home or self-care (01) ==
LOC: RADCTMAIN 07:26
PROVIDERS: ATTEND Internal Medicine Geriatric Medicine
DX: R10.9 Unspecified abdominal pain (principal); K52.9 Noninfective gastroenteritis and colitis, unspecified; K57.30 Diverticulosis of large intestine without perforation or abscess without bleeding; N20.0 Calculus of kidney; N28.1 Cyst of kidney, acquired
CPT/HCPCS: 82565; 84520; 74177; 36415; Q9967

== ENCOUNTER → 2023-11-01 | Outpatient (CLI) | payer MEDICARE ==
[2023-11-01 15:34] LABS: Basophils # (A) 0.03 X 10*3/uL (0.00-0.10); Basophils % (A) 0.3 %; Eosinophils # (A) 0.04 X 10*3/uL (0.04-0.35); Eosinophils % (A) 0.4 %; HCT 39.6 % (37.2-46.3); HGB 13.2 g/dL (12.0-15.0); Lymphocytes % (A) 37.1 %; MCH 32.6 pg (27.0-32.0); MCHC 33.3 g/dL (32.0-37.0); MCV 97.8 FL (80.0-97.0); Mean Platelet Volume 10.2 FL (9.5-12.2); Monocytes # (A) 0.65 X 10*3/uL (0.20-1.00); Monocytes % (A) 6.2 %; NRBC Per 100 WBC 0 X 10*3/uL (0.00-0.01); Neutrophils # (A) 5.85 X 10*3/uL (1.80-7.70); Neutrophils % (A) 55.7 %; Platelet Count 278 X 10*3/uL (140-440); RBC 4.05 X 10*6/uL (4.10-5.20); RDW 13.5 % (11.5-14.5)
[2023-11-01 15:59] LABS: ALT 20 U/L (8-44); AST 20 U/L (13-35); Albumin 4.5 g/dL (3.8-4.9); Albumin/Globulin Ratio 1.73 Ratio (1.60-3.17); Alkaline Phosphatase 79 U/L (41-126); BUN/Creat Ratio 15.55 Ratio (12.00-20.00); Blood Urea Nitrogen 17.1 mg/dL (9.0-27.0); Calcium 10.4 mg/dL (8.7-10.3); Carbon Dioxide 27.9 mmol/L (21.6-31.8); Chloride 101 mmol/L (96-109); Chol/HDL Ratio 2.75 Ratio; Globulin 2.6 g/dL (1.6-3.3); Glucose 113 mg/dL (70-110); LDL Cholesterol,Calculated 104.4 mg/dL (0.0-131.0); Potassium 4.5 mmol/L (3.5-5.5); Sodium 142 mmol/L (135-145); Total Bilirubin 0.3 mg/dL (0.3-1.2); Total Protein 7.1 g/dL (6.2-8.2)
== END | disposition home or self-care (01) ==
LOC: LABWHC1 09:34
PROVIDERS: ATTEND Nurse Practitioner
DX: Z00.00 Encounter for general adult medical examination without abnormal findings (principal); I12.9 Hypertensive chronic kidney disease with stage 1 through stage 4 chronic kidney disease, or unspecified chronic kidney disease; N18.30 Chronic kidney disease, stage 3 unspecified; F41.8 Other specified anxiety disorders; M79.7 Fibromyalgia; E78.5 Hyperlipidemia, unspecified; Z78.0 Asymptomatic menopausal state; M85.80 Other specified disorders of bone density and structure, unspecified site; R76.8 Other specified abnormal immunological findings in serum
CPT/HCPCS: 36415; 80053; 80061; 85025

== ENCOUNTER 2023-11-12 11:49 | Emergency (ER) | payer MEDICARE ==
--- NOTE | 2023-11-12 12:08 | ED ---
Abdominal Pain HPI - General Source: patient, RN notes reviewed Mode of arrival: ambulatory Limitations: no limitations - History of Present Illness MD Complaint: abdominal pain <Adelia Morley - Last Filed: 11/12/23 12:07> <Jonah Lee - Last Filed: 11/12/23 16:36> - General Chief Complaint: Abdominal Pain Stated Complaint: abd pain Time Seen by Provider: 11/12/23 12:07 - History of Present Illness Initial Comments: Quick Note: This is a 68-year-old female who presents to the emergency department for upper abdominal pain. States that it started 2 to 3 days ago. D enies any nausea or vomiting. States that she may have had a fever yesterday. She does also report congestion, body aches, and a sore throat. (Adelia Morley) Dictation was produced using [employer] dictation software. please excuse any grammatical, word or spelling errors. Chief Complaint: 68-year-old female presents emergency department abdominal pain History of Present Illness: Patient 68-year-old female she has past medical history of gastritis. She presents to the emergency department for epigastric abdominal pain. Patient states she has pain whenever she presses in the epigastrium. She denies any cardiac history. Patient had colonoscopy and upper endoscopy performed recently. Apparently she does not have any infectious bowel disease. She completed course of antibiotics for presumed infectious colitis recently. She had an upper endoscopy which positive for gastritis. Patient has history of hysterectomy. No other abdominal surgeries. She complains of poor appetite. Denies any constipation. Denies any fever, chills or night sweats. No vomiting. The ROS documented in this emergency department record has been reviewed and confirmed by me. Those systems with pertinent positive or negative responses have been documented in the HPI. All other systems are other negative and/or noncontributory. (Jonah Lee) - Related Data Home Medications Medication Instructions Recorded Confirmed clonazePAM [KlonoPIN] 0.5 mg PO HS 05/21/15 01/11/23 estradioL [Estrace] 1 mg PO QAM 05/21/15 01/11/23 Escitalopram Oxalate [Lexapro] 20 mg PO QAM 08/12/21 01/11/23 amLODIPine BESYLATE 5 mg PO QAM 08/12/21 01/11/23 busPIRone HCL [Buspirone HCl] 5 mg PO TID 08/17/22 01/11/23 Isosorbide Mononitrate [Isosorbide 15 mg PO 1200 01/07/23 01/11/23 Mononitrate ER] Magnesium 250 mg PO DAILY PRN 01/07/23 01/11/23 Metoprolol Tartrate 12.5 mg PO QAM 01/07/23 01/11/23 Aspirin 325 mg PO DAILY PRN 01/11/23 01/11/23 Allergies Allergy/AdvReac Type Severity Reaction Status Date / Time No Known Allergies Allergy Verified 11/12/23 12:02 Review of Systems ROS Other: All systems not noted in ROS Statement are negative. <Adelia Morley - Last Filed: 11/12/23 12:07> ROS Other: All systems not noted in ROS Statement are negative. <Jonha Lee - Last Filed: 11/12/23 16:36> ROS Statement: Those systems with pertinent positive or pertinent negative responses have been documented in the HPI. Past Medical History Past Medical History: GERD/Reflux, Hyperlipidemia, Hypertension, Renal Disease Additional Past Medical History / Comment(s): Abnormal stress test, fatigue, SOB with exertion, "twinges of chest pain". Past bradycardia, L kidney functions at 37%, hemorrhoids, past hypoglycemia History of Any Multi-Drug Resistant Organisms: None Reported Past Surgical History: Hernia Repair, Hysterectomy Additional Past Surgical History / Comment(s): SEPTOPLASTY, COLONOSCOPY, R in guinal hernia Past Anesthesia/Blood Transfusion Reactions: No Reported Reaction Additional Past Anesthesia/Blood Transfusion Reaction / Comment(s): Pt has never received blood. Past Psychological History: Anxiety, Depression Smoking Status: Former smoker Past Alcohol Use History: Rare Past Drug Use History: None Reported - Past Family History Mother Family Medical History: Cancer, Coronary Artery Disease (CAD), Liver Disease Additional Family Medical History / Comment(s): Lung cancer,HEPATITIS,CABG Father Family Medical History: Diabetes Mellitus, Liver Disease Additional Family Medical History / Comment(s): CIRRHOSIS OF LIVER-ALCOHOLISM <Adelia Morley - Last Filed: 11/12/23 12:07> General Exam Limitations: no limitations <Adelia Morley - Last Filed: 11/12/23 12:07> <Jonah Lee - Last Filed: 11/12/23 16:36> - General Exam Comments Initial Comments: Visual Physical Exam Vital signs reviewed General: Well-appearing, nontoxic, no acute distress. Head: Normocephalic, atraumatic Eyes: PERRLA, EOMI ENT: Airway patent Chest: Nonlabored breathing Skin: No visual rash, normal skin tone Neuro: Alert and oriented 3 Musculoskeletal: No gross abnormalities (Adelia Morley) PHYSICAL EXAM: General Impression: Alert and oriented x3, not in acute distress HEENT: Normocephalic atraumatic, extra-ocular movements intact, pupils equal and reactive to light bilaterally, mucous membranes moist. Cardiovascular: Heart regular rate and rhythm Chest: Able to complete full sentences, no retractions, no tachypnea Abdomen: abdomen soft, n reproducible epigastric tenderness with palpation, non- distended, no organomegaly Musculoskeletal: Pulses present and equal in all extremities, no peripheral edema Motor: no focal deficits noted Neurological: CN II-XII grossly intact, no focal motor or sensory deficits noted Skin: Intact with no visualized rashes Psych: Normal affect and mood (Jonah Lee) Course Vital Signs 11/12/23 11:58 Temperature 98 F Pulse Rate 64 Respiratory 18 Rate Blood Pressure 179/72 O2 Sat by Pulse 98 Oximetry Medical Decision Making <Adelia Morley - Last Filed: 11/12/23 12:07> - Lab Data Result diagrams: 11/12/23 12:04 11/12/23 12:04 <Jonah Lee - Last Filed: 11/12/23 16:36> - Medical Decision Making I performed the QuickNote portion of this chart. Signed Adelia Morley PA-C. (Adelia Morley) Was pt. sent in by a medical professional or institution (RADHAMES Maciel, MACHINE ROOM ENGINEER, urgent care, hospital, or long-term...) When possible be specific @ -No Did you speak to anyone other than the patient for history (EMS, parent, family, police, friend...)? What history was obtained from this source @ -No Did you review nursing and triage notes (agree or disagree)? Why? @ -I reviewed and agree with nursing and triage notes Were old charts reviewed (outside hosp., previous admission, EMS record, old EKG, old radiological studies, urgent care reports/EKG's, long-term records)? Report findings @ -No old charts were reviewed Differential Diagnosis (chest pain, altered mental status, abdominal pain women, abdominal pain men, vaginal bleeding, musculoskeletal, weakness, fever, dyspnea, syncope, headache, dizziness, GI bleed, back pain, seizure, CVA, palpatations, mental health)? @ -Differential Abdominal Pain Women: Appendicitis, Cholecystitis, diverticulosis, ischemic bowel, pancreatitis, hepatitis, UTI, gastroenteritis, AAA, incarcerated hernia, bowel obstruction, constipation, inflammatory bowel, hepatitis, peptic ulcer disease, splenic infarction, perforated viscus, vulvitis, ovarian torsion, PID, kidney stone, placenta abruption, this is not meant to be an all-inclusive list EKG interpreted by me (3pts min.). @ -None done X-rays interpreted by me (1pt min.). @ -None done CT interpreted by me (1pt min.). @ -None done U/S interpreted by me (1pt. min.). @ -Ultrasound of the abdomen shows no acute processes What testing was considered but not performed or refused? (CT, X-rays, U/S, labs)? Why? @ -None What meds were considered but not given or refused? Why? @ -None Did you discuss the management of the patient with other professionals (professionals i.e. , PA, MACHINE ROOM ENGINEER, lab, RT, psych nurse, social media content manager, fine wire drawer, teacher, mounted police officer, case packer and sealer)? Give summary @ -No Was smoking cessation discussed for >3mins.? @ -No Was critical care preformed (if so, how long)? @ -No Were there social determinants of health that impacted care today? How? (Homelessness, low income, unemployed, alcoholism, drug addiction, transportation, low edu. Level, literacy, decrease access to med. care, [facility], rehab)? @ -No Was there de-escalation of care discussed even if they declined (Discuss DNR or withdrawal of care, Hospice)? DNR status @ -No What co-morbidities impacted this encounter? (DM, HTN, Smoking, COPD, CAD, Cancer, CVA, ARF, Chemo, Hep., AIDS, mental health diagnosis, sleep apnea, morbid obesity)? @ -None Was patient admitted / discharged? Hospital course, mention meds given and route, prescriptions, significant lab abnormalities, going to OR and other pertinent info. @ -68-year-old female with history of gastritis presents to the ER for epigastric abdominal pain. Vital signs upon arrival are within acceptable limits she is following up closely with GI doctors. Laboratory evaluation is unremarkable. Patient has no cardiac comorbidities. Her symptoms are very atypical for acute coronary syndrome. Troponin ordered negative. No leukocytosis. Abdominal labs negative. Patient reevaluated at bedside at 4:30 PM. Patient is well-appearing in no acute distress. Discussed with patient celina t her symptoms are likely secondary gastritis though it is difficult to assess that without GI cocktail. Patient refusing GI cocktail. She wants to be discharged. She states that she will follow-up with her outpatient doctors. Undiagnosed new problem with uncertain prognosis? @ -No Drug Therapy requiring intensive monitoring for toxicity (Heparin, Nitro, Insulin, Cardizem)? @ -No Were any procedures done? @ -No Diagnosis/symptom? Acute, or Chronic, or Acute on Chronic? Uncomplicated (wit hout systemic symptoms) or Complicated (systemic symptoms)? @ -Abdominal pain, no obvious source, no high risk features Side effects of treatment? @ -No Exacerbation, Progression, or Severe Exacerbation? @ -No Poses a threat to life or bodily function? How? (Chest pain, USA, IA, pneumonia, PE, COPD, DKA, ARF, appy, cholecystitis, CVA, Diverticulitis, Homicidal, Suicidal, threat to staff... and all critical care pts) @ -No (Jonah Lee) - Lab Data Lab Results 11/12/23 11/12/23 11/12/23 Range/Units 12:04 12:04 12:04 WBC 8.3 (3.8-10.6) k/uL RBC 4.30 (3.80-5.40) m/uL Hgb 13.5 (11.4-16.0) gm/dL Hct 41.8 (34.0-46.0) % MCV 97.1 (80.0-100.0) fL MCH 31.4 (25.0-35.0) pg MCHC 32.3 (31.0-37.0) g/dL RDW 13.0 (11.5-15.5) % Plt Count 262 (150-450) k/uL MPV 7.4 Neutrophils % 63 % Lymphocytes % 28 % Monocytes % 5 % Eosinophils % 1 % Basophils % 1 % Neutrophils # 5.2 (1.3-7.7) k/uL Lymphocytes # 2.3 (1.0-4.8) k/uL Monocytes # 0.4 (0-1.0) k/uL Eosinophils # 0.1 (0-0.7) k/uL Basophils # 0.1 (0-0.2) k/uL Sodium 137 (137-145) mmol/L Potassium 5.6 H (3.5-5.1) mmol/L Chloride 105 (98-107) mmol/L Carbon Dioxide 22 (22-30) mmol/L Anion Gap 10 mmol/L BUN 13 (7-17) mg/dL Creatinine 0.84 (0.52-1.04) mg/dL Est GFR (CKD-EPI)AfAm 84 (>60 ml/min/1.73 sqM) Est GFR (CKD-EPI)NonAf 73 (>60 ml/min/1.73 sqM) Glucose 100 H (74-99) mg/dL Plasma Lactic Acid Bruce (0.7-2.0) mmol/L Calcium 9.3 (8.4-10.2) mg/dL Magnesium 2.1 (1.6-2.3) mg/dL Total Bilirubin 1.4 H (0.2-1.3) mg/dL AST 54 H (14-36) U/L ALT 21 (4-34) U/L Alkaline Phosphatase 106 (38-126) U/L Troponin I (0.000-0.034) ng/mL Total Protein 8.1 (6.3-8.2) g/dL Albumin 4.6 (3.5-5.0) g/dL Amylase 66 (30-110) U/L Lipase 127 (23-300) U/L Urine Color Colorless Urine Appearance Clear (Clear) Urine pH 6.5 (5.0-8.0) Ur Specific [place] 1.004 (1.001-1.035) Urine Protein Negative (Negative) Urine Glucose (UA) Negative (Negative) Urine Ketones Negative (Negative) Urine Blood Negative (Negative) Urine Nitrite Negative (Negative) Urine Bilirubin Negative (Negative) Urine Urobilinogen <2.0 (<2.0) mg/dL Ur Leukocyte Esterase Negative (Negative) Influenza Type A (PCR) (Not Detectd) Influenza Type B (PCR) (Not Detectd) RSV (PCR) (Not Detectd) SARS-CoV-2 (PCR) (Not Detectd) Group A Strep (PCR) (Not Detectd) 11/12/23 11/12/23 11/12/23 Range/Units 12:04 12:04 12:30 WBC (3.8-10.6) k/uL RBC (3.80-5.40) m/uL Hgb (11.4-16.0) gm/dL Hct (34.0-46.0) % MCV (80.0-100.0) fL MCH (25.0-35.0) pg MCHC (31.0-37.0) g/dL RDW (11.5-15.5) % Plt Count (150-450) k/uL MPV Neutrophils % % Lymphocytes % % Monocytes % % Eosinophils % % Basophils % % Neutrophils # (1.3-7.7) k/uL Lymphocytes # (1.0-4.8) k/uL Monocytes # (0-1.0) k/uL Eosinophils # (0-0.7) k/uL Basophils # (0-0.2) k/uL Sodium (137-145) mmol/L Potassium (3.5-5.1) mmol/L Chloride (98-107) mmol/L Carbon Dioxide (22-30) mmol/L Anion Gap mmol/L BUN (7-17) mg/dL Creatinine (0.52-1.04) mg/dL Est GFR (CKD-EPI)AfAm (>60 ml/min/1.73 sqM) Est GFR (CKD-EPI)NonAf (>60 ml/min/1.73 sqM) Glucose (74-99) mg/dL Plasma Lactic Acid Bruce 0.9 (0.7-2.0) mmol/L Calcium (8.4-10.2) mg/dL Magnesium (1.6-2.3) mg/dL Total Bilirubin (0.2-1.3) mg/dL AST (14-36) U/L ALT (4-34) U/L Alkaline Phosphatase (38-126) U/L Troponin I (0.000-0.034) ng/mL Total Protein (6.3-8.2) g/dL Albumin (3.5-5.0) g/dL Amylase (30-110) U/L Lipase (23-300) U/L Urine Color Urine Appearance (Clear) Urine pH (5.0-8.0) Ur Specific [place] (1.001-1.035) Urine Protein (Negative) Urine Glucose (UA) (Negative) Urine Ketones (Negative) Urine Blood (Negative) Urine Nitrite (Negative) Urine Bilirubin (Negative) Urine Urobilinogen (<2.0) mg/dL Ur Leukocyte Esterase (Negative) Influenza Type A (PCR) Not Detected (Not Detectd) Influenza Type B (PCR) Not Detected (Not Detectd) RSV (PCR) Not Detected (Not Detectd) SARS-CoV-2 (PCR) Not Detected (Not Detectd) Group A Strep (PCR) NOT DETECTED (Not Detectd) 11/12/23 Range/Units 12:30 WBC (3.8-10.6) k/uL RBC (3.80-5.40) m/uL Hgb (11.4-16.0) gm/dL Hct (34.0-46.0) % MCV (80.0-100.0) fL MCH (25.0-35.0) pg MCHC (31.0-37.0) g/dL RDW (11.5-15.5) % Plt Count (150-450) k/uL MPV Neutrophils % % Lymphocytes % % Monocytes % % Eosinophils % % Basophils % % Neutrophils # (1.3-7.7) k/uL Lymphocytes # (1.0-4.8) k/uL Monocytes # (0-1.0) k/uL Eosinophils # (0-0.7) k/uL Basophils # (0-0.2) k/uL Sodium (137-145) mmol/L Potassium (3.5-5.1) mmol/L Chloride (98-107) mmol/L Carbon Dioxide (22-30) mmol/L Anion Gap mmol/L BUN (7-17) mg/dL Creatinine (0.52-1.04) mg/dL Est GFR (CKD-EPI)AfAm (>60 ml/min/1.73 sqM) Est GFR (CKD-EPI)NonAf (>60 ml/min/1.73 sqM) Glucose (74-99) mg/dL Plasma Lactic Acid Bruce (0.7-2.0) mmol/L Calcium (8.4-10.2) mg/dL Magnesium (1.6-2.3) mg/dL Total Bilirubin (0.2-1.3) mg/dL AST (14-36) U/L ALT (4-34) U/L Alkaline Phosphatase (38-126) U/L Troponin I <0.012 (0.000-0.034) ng/mL Total Protein (6.3-8.2) g/dL Albumin (3.5-5.0) g/dL Amylase (30-110) U/L Lipase (23-300) U/L Urine Color Urine Appearance (Clear) Urine pH (5.0-8.0) Ur Specific [place] (1.001-1.035) Urine Protein (Negative) Urine Glucose (UA) (Negative) Urine Ketones (Negative) Urine Blood (Negative) Urine Nitrite (Negative) Urine Bilirubin (Negative) Urine Urobilinogen (<2.0) mg/dL Ur Leukocyte Esterase (Negative) Influenza Type A (PCR) (Not Detectd) Influenza Type B (PCR) (Not Detectd) RSV (PCR) (Not Detectd) SARS-CoV-2 (PCR) (Not Detectd) Group A Strep (PCR) (Not Detectd) Disposition <Adelia Morley - Last Filed: 11/12/23 12:07> Is patient prescribed a controlled substance at d/c from ED?: No Time of Disposition: 16:36 <Jonah Lee - Last Filed: 11/12/23 16:36> Clinical Impression: Abdominal pain Disposition: HOME SELF-CARE Condition: Good Instructions (If sedation given, give patient instructions): Abdominal Pain (ED) Referrals: Rodger Mays MD [Primary Care Provider] - 1-2 days
[2023-11-12 12:42] LABS: Basophils # (A) 0.1 k/uL (0-0.2); Basophils % (A) 1 %; Eosinophils # (A) 0.1 k/uL (0-0.7); Eosinophils % (A) 1 %; HCT 41.8 % (34.0-46.0); HGB 13.5 gm/dL (11.4-16.0); Lymphocytes # (A) 2.3 k/uL (1.0-4.8); Lymphocytes % (A) 28 %; MCH 31.4 pg (25.0-35.0); MCHC 32.3 g/dL (31.0-37.0); MCV 97.1 fL (80.0-100.0); Mean Platelet Volume 7.4; Monocytes # (A) 0.4 k/uL (0-1.0); Monocytes % (A) 5 %; Neutrophils # (A) 5.2 k/uL (1.3-7.7); Neutrophils % (A) 63 %; Platelet Count 262 k/uL (150-450); WBC 8.3 k/uL (3.8-10.6)
[2023-11-12 12:44] VITALS: RESP 18
[2023-11-12 13:07] LABS: ALT 21 U/L (4-34); African American GFR (CKD) 84 (>60 ml/min/1.73 sqM); Albumin 4.6 g/dL (3.5-5.0); Amylase 66 U/L (30-110); Anion Gap 10 mmol/L; Blood Urea Nitrogen 13 mg/dL (7-17); Calcium 9.3 mg/dL (8.4-10.2); Carbon Dioxide 22 mmol/L (22-30); Chloride 105 mmol/L (98-107); Glucose 100 mg/dL (74-99); Lipase 127 U/L (23-300); Non-African American GFR(CKD) 73 (>60 ml/min/1.73 sqM); Sodium 137 mmol/L (137-145); Total Bilirubin 1.4 mg/dL (0.2-1.3); Total Protein 8.1 g/dL (6.3-8.2)
[2023-11-12 13:12] LABS: AST 54 U/L (14-36); Alkaline Phosphatase 106 U/L (38-126); Magnesium 2.1 mg/dL (1.6-2.3); Potassium 5.6 mmol/L (3.5-5.1)
[2023-11-12 13:21] LABS: Appearance,Urine Clear (Clear); Bilirubin,Urine Negative (Negative); Blood,Urine Negative (Negative); Color,Urine Colorless; Glucose,Urine (UA) Negative (Negative); Ketones,Urine Negative (Negative); Leukocyte Esterase,Urine Negative (Negative); Nitrite,Urine Negative (Negative); PH, Urine 6.5 (5.0-8.0); Protein,Urine Negative (Negative); Specific Gravity,Urine 1.004 (1.001-1.035); Urobilinogen,Urine <2.0 mg/dL (<2.0)
--- NOTE | 2023-11-12 15:05 | US ---
EXAMINATION TYPE: US gallbladder DATE OF EXAM: 11/12/2023 COMPARISON: NONE CLINICAL INDICATION: Female, 68 years old with history of Epigastric pain; Epigastric pain, nausea TECHNIQUE: Multiple sonographic images of the right upper quadrant are obtained. FINDINGS: EXAM MEASUREMENTS: Liver Length: 14.8 cm Gallbladder Wall: 0.3 cm CBD: 0.9 cm Right Kidney: 11.0 x 4.2 x 4.5 cm [employer] NOTES: *Technical limitations due to large amount of overlying bowel gas Pancreas: appears wnl Liver: wnl as visualized Gallbladder: contracted. No evidence of stones Evidence for sonographic Jacobo's sign: no CBD: dilated Right Kidney: mild hydronephrosis. Small anechoic lesion mid = 0.8 x 0.7cm IMPRESSION: No acute process detected. Unremarkable exam. Some limitation due to excessive bowel gas.
[2023-11-12 17:04] VITALS: BP 176/93; PULSE 84; TEMP 98.2
== END 2023-11-12 16:46 | disposition home or self-care (01) ==
LOC: EC 11:49
DX: R10.13 Epigastric pain (principal); Z87.891 Personal history of nicotine dependence; Z11.52 Encounter for screening for COVID-19
CPT/HCPCS: 36415; 76705; 80053; 81003; 82150; 83605; 83690; 83735; 84484; 85025; 87636; 87651; 93005; 99284

== ENCOUNTER → 2023-11-23 | Outpatient (CLI) | payer MEDICARE ==
[2023-11-23 12:00] LABS: African American GFR (CKD) 86 (>60 ml/min/1.73 sqM); Blood Urea Nitrogen 18 mg/dL (7-17); Non-African American GFR(CKD) 75 (>60 ml/min/1.73 sqM)
--- NOTE | 2023-11-29 10:38 | CT ---
EXAMINATION TYPE: CT abdomen pelvis w con CT DLP: 1025 mGycm, Automated exposure control for dose reduction was used. DATE OF EXAM: 11/23/2023 1:46 PM COMPARISON: CT abdomen pelvis most recent from 09/13/2023 CLINICAL INDICATION:Female, 68 years old with history of K52.9 NONINFECTIVE GASTROENTERITIS AND COLIT IS, UN; GASTROENTERITIS AND COLITIS TECHNIQUE: Axial CT abdomen pelvis w con;Sagittal and coronal reformats were created on a separate w orkstation. Contrast used:100ml mL of Isovue 300 with IV Contrast, (none if empty) Oral contrast used: with Oral Contrast (none if empty) FINDINGS: LOWER CHEST: Unremarkable. Heart limits of normal in size without pericardial effusion. Lung bases clear without pleural effusion. ABDOMEN No focal liver lesion or biliary ductal dilatation. Portal venous system is patent. Gallbladder, adrenal glands, spleen, and pancreas within normal limits. Nonobstructive 4 mm left lower pole renal calculus. Symmetric uptake and excretion of contrast from b oth kidneys. Numerous small cortical cysts are present, larger on the left measuring up to 2.1 cm. No dilated small bowel, free fluid, or free air. No mesenteric or retroperitoneal lymphadenopathy. Normal appendix. Oral contrast did not progress through the entire small bowel. Scattered mild-to-mod erate stool. Nondistended colon. Left-sided colonic diverticulosis, greatest in the sigmoid colon but no focal p ericolonic inflammatory change to indicate acute diverticulitis. Bladder distended and unremarkable. Uterus surgically absent. Neither ovary clearly identified. No abnormal fluid collection the pelvis or pelvic lymphadenopathy. Bones: Mild facet arthritis. IMPRESSION: 1. Unremarkable exam. No grossly evident inflammatory process involving the colon.
== END | disposition home or self-care (01) ==
LOC: RADCTMAIN 11:21
PROVIDERS: ATTEND Internal Medicine Geriatric Medicine
DX: K52.9 Noninfective gastroenteritis and colitis, unspecified (principal)
CPT/HCPCS: 82565; 84520; 74177; 36415; Q9967

== ENCOUNTER → 2024-04-06 | Outpatient (CLI) | payer MEDICARE ==
--- NOTE | 2024-04-16 13:29 | MM ---
Reason for Exam: Screening (asymptomatic). Last mammogram was performed 1 year(s) and 3 month(s) ago. Patient History: Menarche at age 14. Patient has no children. Left ovary removed at age 37. Right ovary removed at age 37. Hysterectomy at age 37. Postmenopausal. Currently using Estrogen, beginning at age 37 for 25 years. Maternal cousin had breast cancer. Risk Values: Esthela 5 year model risk: 1.9%. NCI Lifetime model risk: 6.4%. Prior Study Comparison: 11/29/2020 Bilateral Screening Mammogram, [facility]. 01/13/2022 Bilateral MG 3D screening mammo w/cad, [facility]. 01/14/2023 Bilateral MG 3D screening mammo w/cad, [facility]. Tissue Density: There are scattered areas of fibroglandular density. Findings: Analyzed By CAD. The pattern is symmetrical. No significant interval change. No suspicious groups of microcalcifications, spiculated or lobular masses, architectural distortion or other secondary signs of malignancy are mammographically apparent. Overall Assessment: Benign, BI-RAD 2 Management: Screening Mammogram of both breasts in 1 year. A negative mammogram report should not preclude additional follow up of suspicious palpable abnormalities. Patient should continue monthly self breast exam. A clinical breast exam by your physician is recommended on an annual basis and results should be correlated with mammographic findings. Note on Esthela scores and lifetime risk: 1. A Esthela score greater than 3% is considered moderate risk. If this is the case, consider specialist referral to assess eligibility for a risk reducing agent. 2. If overall lifetime risk for the development of breast cancer is 20% or higher, the patient may qualify for future screening with alternating mammogram and breast MRI. [facility], , 04/16/2024 1:26 PM. Electronically signed and approved by: Cornell Sanchez D.O. Radiologis
== END | disposition home or self-care (01) ==
LOC: RADMAMWWP 14:21
PROVIDERS: ATTEND Internal Medicine Geriatric Medicine
DX: Z12.31 Encounter for screening mammogram for malignant neoplasm of breast
CPT/HCPCS: 77063; 77067

== ENCOUNTER → 2024-04-17 | Outpatient (CLI) | payer MEDICARE ==
[2024-04-17 15:33] LABS: HCT 39.3 % (37.2-46.3); MCH 31.8 pg (27.0-32.0); MCHC 33.1 g/dL (32.0-37.0); MCV 96.1 FL (80.0-97.0); Mean Platelet Volume 9.7 FL (9.5-12.2); NRBC Per 100 WBC 0 X 10*3/uL (0.00-0.01); Platelet Count 286 X 10*3/uL (140-440); RBC 4.09 X 10*6/uL (4.10-5.20); RDW 13.3 % (11.5-14.5); WBC 7.46 X 10*3/uL (4.50-10.00)
[2024-04-17 16:14] LABS: Blood Urea Nitrogen 17.6 mg/dL (9.0-27.0); Calcium 9.3 mg/dL (8.7-10.3); Carbon Dioxide 26.7 mmol/L (21.6-31.8); Chloride 101 mmol/L (96-109); Glucose 118 mg/dL (70-110); Potassium 4.5 mmol/L (3.5-5.5); Sodium 140 mmol/L (135-145); Uric Acid 4.3 mg/dL (2.9-7.7)
== END | disposition home or self-care (01) ==
LOC: LABWHC1 11:43
PROVIDERS: ATTEND Internal Medicine Nephrology
DX: N18.2 Chronic kidney disease, stage 2 (mild) (principal); N13.30 Unspecified hydronephrosis; I10 Essential (primary) hypertension; N28.1 Cyst of kidney, acquired; N18.30 Chronic kidney disease, stage 3 unspecified
CPT/HCPCS: 36415; 80048; 82306; 83970; 84550; 85027

== ENCOUNTER → 2024-09-27 | Outpatient (CLI) | payer MEDICARE ==
[2024-09-27 09:56] LABS: African American GFR (CKD) 71 (>60 ml/min/1.73 sqM); Blood Urea Nitrogen 27 mg/dL (7-17); Non-African American GFR(CKD) 61 (>60 ml/min/1.73 sqM)
--- NOTE | 2024-09-27 12:13 | CT ---
EXAMINATION TYPE: CT abdomen pelvis w con DATE OF EXAM: 09/27/2024 11:33 AM COMPARISON: CT abdomen pelvis most recent from 11/23/2023 CLINICAL INDICATION: Female, 69 years old with history of R10.84 GENERALIZED ABDOMINAL PAIN; K59.09 C onstipa; abdominal pain and with change in bowel habits, lowe abdominal pain with cramping. TECHNIQUE: Axial CT abdomen pelvis w con;Sagittal and coronal reformats were created on a separate w orkstation. Contrast used:100 ml mL of Isovue 300 with IV Contrast, (none if empty) Oral contrast used: with Oral Contrast (none if empty) CT DLP: 838 mGycm, Automated exposure control for dose reduction was used. FINDINGS: LOWER CHEST: Unremarkable ABDOMEN LIVER: Unremarkable GALLBLADDER AND BILE DUCTS: Unremarkable. PANCREAS: Unremarkable. SPLEEN: Unremarkable. ADRENAL GLANDS: Unremarkable. KIDNEYS AND URETERS: No evidence of hydronephrosis or obstructive renal calculus. There is a nonobstr ucting left 4 mm calculus.. The ureters are unremarkable. Scattered bilateral renal cysts. PELVIS BLADDER: No evidence for wall thickening or mass given limitations of exam. REPRODUCTIVE: The uterus is surgically absent. ABDOMEN & PELVIS STOMACH AND BOWEL: No evidence of bowel obstruction. Large amount stool is seen in the colon. There i s redundant sigmoid colon. Scattered colonic diverticula. Small feces in the terminal ileum present. PERITONEUM/RETROPERITONEUM: No evidence of pneumoperitoneum or free fluid. VASCULATURE: No evidence of aortic aneurysm. MUSCULOSKELETAL: No acute osseous abnormalities LYMPH NODES: No gross evidence for lymphadenopathy. SOFT TISSUE/ABDOMINAL WALL: Unremarkable IMPRESSION: 1. Large amount stool throughout the colon with small bowel feces in the terminal ileum correlate fo r fecal stasis. Consider therapeutic Gastrografin small bowel follow-through. 2. Colonic diverticula 3. Nonobstructing left 4 mm calculus. 4. Multiple small cysts in the bilateral kidneys with some larger renal cortical cysts on the left. Stable from prior. [facility], , 09/27/2024 12:11 PM
== END | disposition home or self-care (01) ==
LOC: RADCTMAIN 09:24
PROVIDERS: ATTEND Internal Medicine Gastroenterology
DX: N20.0 Calculus of kidney (principal); K57.30 Diverticulosis of large intestine without perforation or abscess without bleeding; N28.1 Cyst of kidney, acquired
CPT/HCPCS: 82565; 84520; 74177; 36415; Q9967

== ENCOUNTER → 2024-10-13 | Outpatient (CLI) | payer MEDICARE ==
[2024-10-13 15:02] LABS: Basophils # (A) 0.05 X 10*3/uL (0.00-0.10); Basophils % (A) 0.6 %; Eosinophils # (A) 0.12 X 10*3/uL (0.04-0.35); Eosinophils % (A) 1.4 %; HCT 39.4 % (37.2-46.3); HGB 12.7 g/dL (12.0-15.0); Lymphocytes # (A) 4.08 X 10*3/uL (0.90-5.00); Lymphocytes % (A) 46.5 %; MCH 31.8 pg (27.0-32.0); MCHC 32.2 g/dL (32.0-37.0); MCV 98.5 FL (80.0-97.0); Mean Platelet Volume 9.8 FL (9.5-12.2); Monocytes # (A) 0.54 X 10*3/uL (0.20-1.00); Monocytes % (A) 6.2 %; NRBC Per 100 WBC 0 X 10*3/uL (0.00-0.01); Neutrophils # (A) 3.97 X 10*3/uL (1.80-7.70); Neutrophils % (A) 45.1 %; Platelet Count 308 X 10*3/uL (140-440); RDW 13.6 % (11.5-14.5); WBC 8.78 X 10*3/uL (4.50-10.00)
[2024-10-13 15:29] LABS: ALT 16 U/L (8-44); AST 19 U/L (13-35); Albumin 4.2 g/dL (3.8-4.9); Albumin/Globulin Ratio 1.68 Ratio (1.60-3.17); Alkaline Phosphatase 82 U/L (41-126); Blood Urea Nitrogen 19.3 mg/dL (9.0-27.0); Calcium 9.4 mg/dL (8.7-10.3); Carbon Dioxide 27.8 mmol/L (21.6-31.8); Chloride 109 mmol/L (96-109); Chol/HDL Ratio 2.55 Ratio; Globulin 2.5 g/dL (1.6-3.3); Glucose 93 mg/dL (70-110); LDL Cholesterol,Calculated 127.2 mg/dL (0.0-131.0); Potassium 4.5 mmol/L (3.5-5.5); Sodium 148 mmol/L (135-145); Total Bilirubin 0.2 mg/dL (0.3-1.2); Total Protein 6.7 g/dL (6.2-8.2); VLDL Calculation 12.52 mg/dL (5.00-40.00)
== END | disposition home or self-care (01) ==
LOC: LABWHC1 08:28
PROVIDERS: ATTEND Family Medicine
DX: I12.9 Hypertensive chronic kidney disease with stage 1 through stage 4 chronic kidney disease, or unspecified chronic kidney disease (principal); N18.30 Chronic kidney disease, stage 3 unspecified; M79.7 Fibromyalgia; E78.5 Hyperlipidemia, unspecified; K21.9 Gastro-esophageal reflux disease without esophagitis; G47.00 Insomnia, unspecified; G47.30 Sleep apnea, unspecified; M85.80 Other specified disorders of bone density and structure, unspecified site; R76.8 Other specified abnormal immunological findings in serum; R53.83 Other fatigue
CPT/HCPCS: 36415; 80053; 80061; 85025

== ENCOUNTER 2025-01-18 13:13 | Emergency (ER) | payer MEDICARE ==
[2025-01-18 15:14] LABS: Basophils # (A) 0.04 10*3/uL (0.00-0.10); Basophils % (A) 0.5 %; Eosinophils # (A) 0.03 10*3/uL (0.04-0.35); Eosinophils % (A) 0.3 %; HCT 43.7 % (37.2-46.3); HGB 14.9 g/dL (12.0-15.0); Lymphocytes # (A) 3.27 10*3/uL (0.90-5.00); Lymphocytes % (A) 36.8 %; MCH 33.0 pg (27.0-32.0); MCHC 34.1 g/dL (32.0-37.0); MCV 96.7 fL (80.0-97.0); Monocytes # (A) 0.38 10*3/uL (0.20-1.00); Monocytes % (A) 4.3 %; Neutrophils # (A) 5.14 10*3/uL (1.80-7.70); Neutrophils % (A) 57.9 %; Platelet Count 268 10*3/uL (140-440); RBC 4.52 10*6/uL (4.10-5.20); RDW 12.9 % (11.5-14.5); WBC 8.88 10*3/uL (4.50-10.00)
[2025-01-18 15:24] LABS: ALT 21 U/L (4-34); AST 31 U/L (14-36); African American GFR (CKD) 86 (>60 ml/min/1.73 sqM); Albumin 5.2 g/dL (3.5-5.0); Alkaline Phosphatase 99 U/L (38-126); Amylase 55 U/L (30-110); Anion Gap 17 mmol/L; Blood Urea Nitrogen 11 mg/dL (7-17); Calcium 10.5 mg/dL (8.4-10.2); Carbon Dioxide 23 mmol/L (22-30); Chloride 102 mmol/L (98-107); Glucose 97 mg/dL (74-99); Lipase 88 U/L (23-300); Non-African American GFR(CKD) 74 (>60 ml/min/1.73 sqM); Potassium 3.9 mmol/L (3.5-5.1); Sodium 142 mmol/L (137-145); Total Protein 8.6 g/dL (6.3-8.2)
--- NOTE | 2025-01-18 15:28 | ED ---
Nausea/Vomiting/Diarrhea HPI - General Chief complaint: Abdominal Pain Stated complaint: abd pain,dizziness Time Seen by Provider: 01/18/25 15:09 Source: patient, RN notes reviewed Mode of arrival: ambulatory Limitations: no limitations - History of Present Illness Initial comments: This is a 69-year-old female who presents to the emergency department for nausea and dizziness. Patient was evaluated at the emergency department in [place], [place] 2 days ago for left lower quadrant pain and constipation. She was diagnosed with diverticulitis and started on Augmentin. States that she took magnesium citrate for constipation and since then has had diarrhea. Her abdominal pain has resolved, however she now feels nauseous and lightheaded, which she believes is from overdoing with the laxatives and having the diarrhea. She did try taking Zofran at home but did not have any relief. Most recent bowel movement was last night. MD complaint: nausea, vomiting, diarrhea - Related Data Home Medications Medication Instructions Recorded Confirmed clonazePAM [KlonoPIN] 0.5 mg PO HS 05/21/15 01/11/23 estradioL [Estrace] 1 mg PO QAM 05/21/15 01/11/23 Escitalopram Oxalate [Lexapro] 20 mg PO QAM 08/12/21 01/11/23 amLODIPine BESYLATE 5 mg PO QAM 08/12/21 01/11/23 busPIRone HCL [Buspirone HCl] 5 mg PO TID 08/17/22 01/11/23 Isosorbide Mononitrate [Isosorbide 15 mg PO 1200 01/07/23 01/11/23 Mononitrate ER] Magnesium 250 mg PO DAILY PRN 01/07/23 01/11/23 Metoprolol Tartrate 12.5 mg PO QAM 01/07/23 01/11/23 Aspirin 325 mg PO DAILY PRN 01/11/23 01/11/23 Previous Rx's Medication Instructions Recorded Metoclopramide [Reglan] 10 mg PO Q6H PRN #30 tab 01/18/25 Allergies Allergy/AdvReac Type Severity Reaction Status Date / Time No Known Allergies Allergy Verified 12/18/24 16:03 Review of Systems ROS Statement: Those systems with pertinent positive or pertinent negative responses have been documented in the HPI. ROS Other: All systems not noted in ROS Statement are negative. Past Medical History Past Medical History: GERD/Reflux, Hyperlipidemia, Hypertension, Renal Disease Additional Past Medical History / Comment(s): Abnormal stress test, fatigue, SOB with exertion, "twinges of chest pain". Past bradycardia, L kidney functions at 37%, hemorrhoids, past hypoglycemia History of Any Multi-Drug Resistant Organisms: None Reported Past Surgical History: Hernia Repair, Hysterectomy Additional Past Surgical History / Comment(s): SEPTOPLASTY, COLONOSCOPY, R inguinal hernia Past Anesthesia/Blood Transfusion Reactions: No Reported Reaction Additional Past Anesthesia/Blood Transfusion Reaction / Comment(s): Pt has never received blood. Past Psychological History: Anxiety, Depression Smoking Status: Former smoker Past Alcohol Use History: Rare Past Drug Use History: None Reported - Past Family History Mother Family Medical History: Cancer, Coronary Artery Disease (CAD), Liver Disease Additional Family Medical History / Comment(s): Lung cancer,HEPATITIS,CABG Father Family Medical History: Diabetes Mellitus, Liver Disease Additional Family Medical History / Comment(s): CIRRHOSIS OF LIVER-ALCOHOLISM General Exam Limitations: no limitations General appearance: alert, in no apparent distress Head exam: Present: atraumatic, normocephalic, normal inspection Respiratory exam: Present: normal lung sounds bilaterally. Absent: respiratory distress, wheezes, rales, rhonchi, stridor Cardiovascular Exam: Present: regular rate, normal rhythm GI/Abdominal exam: Present: soft. Absent: distended, tenderness Neurological exam: Present: alert, oriented X3, CN II-XII intact Psychiatric exam: Present: normal affect, normal mood Skin exam: Present: warm, dry, intact, normal color. Absent: rash Course Vital Signs 01/18/25 01/18/25 01/18/25 13:23 15:11 16:46 Temperature 97.9 F 97.8 F Pulse Rate 68 56 L 71 Respiratory 18 19 18 Rate Blood Pressure 191/79 187/75 171/79 O2 Sat by Pulse 100 98 100 Oximetry Medical Decision Making - Medical Decision Making This is a 69-year-old female who presents to the emergency department for nausea and dizziness. Was pt. sent in by a medical professional or institution? @ -No Did you speak to anyone other than the patient for history? @ -No Did you review nursing and triage notes? @ -Yes, and I agree, it is accurate with regards to the patient's symptoms. Were old charts reviewed? @ -No Differential Diagnosis? @ -Differential Nausea and Vomiting: Gastroenteritis, cholecystitis, appendicitis, pancreatitis, migraine, benign positional vertigo, food borne illness, pyelonephritis, irritable bowel syndrome, influenza, Covid, GERD, incarcerated hernia, intestinal obstruction, this is not meant to be an all-inclusive list. EKG interpreted by me (3pts min.)? @ -Not obtained X-rays interpreted by me (1pt min.)? @ -Not obtained CT interpreted by me (1pt min.)? @ -Not obtained U/S interpreted by me (1pt. min.)? @ -Not obtained What testing was considered but not performed? (CT, X-rays, U/S, labs)? Why? @ -None What meds were considered but not given? Why? @ -None Did you discuss the management of the patient with other professionals? @ -No Did you reconcile home meds? @ -No Was smoking cessation discussed for >3mins.? @ -No Was critical care preformed (if so, how long)? @ -No Were there social determinants of health that impacted care today? How? (Homelessness, low income, unemployed, alcoholism, drug addiction, transportation, low edu. Level, literacy, decrease access to med. care, [facility], rehab)? @ -No Was there de-escalation of care discussed even if they declined? (Discuss DNR or withdrawal of care, Hospice)? @ -No What co-morbidities impacted this encounter? (DM, HTN, Smoking, COPD, CAD, Cancer, CVA, Hep., AIDS, mental health diagnosis, sleep apnea, morbid obesity)? @ -Diverticulosis Was patient admitted / discharged? @ -Discharged. Lab work unremarkable. Patient's abdominal exam was benign and she had no residual abdominal pain. She was essentially just nauseous and fatigued from all of the diarrhea. She was treated with IV fluids and Reglan with improvement in symptoms. She advised that she is comfortable discharge home at that point. Reglan prescribed for further management. Advised she slowly advance her diet as tolerated and remain well hydrated as well as have close follow-up with her PCP. Patient discharged home in stable condition. Case discussed with ED attending Dr. White. Return precautions reviewed in depth, the patient is instructed to return to the emergency department with any new, worsening, or concerning symptoms. Patient verbalized understanding. Undiagnosed new problem with uncertain prognosis? @ -None Drug Therapy requiring intensive monitoring for toxicity (Heparin, Nitro, Ins ulin, Cardizem)? @ -None Were any procedures done? @ -None Diagnosis/symptom? @ -Nausea and vomiting, dehydration Acute, or Chronic, or Acute on Chronic? @ -Acute Uncomplicated (without systemic symptoms) or Complicated (systemic symptoms)? @ -Uncomplicated Side effects of treatment? @ -None Exacerbation, Progression, or Severe Exacerbation] @ -Not applicable Poses a threat to life or bodily function? @ -No - Lab Data Result diagrams: 01/18/25 14:59 01/18/25 14:59 Lab Results 01/18/25 01/18/25 01/18/25 Range/Units 14:59 14:59 15:54 WBC 8.88 (4.50-10.00) 10*3/uL RBC 4.52 (4.10-5.20) 10*6/uL Hgb 14.9 (12.0-15.0) g/dL Hct 43.7 (37.2-46.3) % MCV 96.7 (80.0-97.0) fL MCH 33.0 H (27.0-32.0) pg MCHC 34.1 (32.0-37.0) g/dL Plt Count 268 (140-440) 10*3/uL MPV 9.0 L (9.5-12.2) fL Immature Gran % (Auto) 0.2 % Neutrophils % 57.9 % Lymphocytes % 36.8 % Monocytes % 4.3 % Eosinophils % 0.3 % Basophils % 0.5 % Immature Gran # 0.02 (0.00-0.04) 10*3/uL Neutrophils # 5.14 (1.80-7.70) 10*3/uL Lymphocytes # 3.27 (0.90-5.00) 10*3/uL Monocytes # 0.38 (0.20-1.00) 10*3/uL Eosinophils # 0.03 L (0.04-0.35) 10*3/uL Basophils # 0.04 (0.00-0.10) 10*3/uL Sodium 142 (137-145) mmol/L Potassium 3.9 (3.5-5.1) mmol/L Chloride 102 (98-107) mmol/L Carbon Dioxide 23 (22-30) mmol/L Anion Gap 17 mmol/L BUN 11 (7-17) mg/dL Creatinine 0.82 (0.52-1.04) mg/dL Est GFR (CKD-EPI)AfAm 86 (>60 ml/min/1.73 sqM) Est GFR (CKD-EPI)NonAf 74 (>60 ml/min/1.73 sqM) Glucose 97 (74-99) mg/dL Plasma Lactic Acid Bruce 1.3 (0.7-2.0) mmol/L Calcium 10.5 H (8.4-10.2) mg/dL Magnesium 2.2 (1.6-2.3) mg/dL Total Bilirubin 0.5 (0.2-1.3) mg/dL AST 31 (14-36) U/L ALT 21 (4-34) U/L Alkaline Phosphatase 99 (38-126) U/L Total Protein 8.6 H (6.3-8.2) g/dL Albumin 5.2 H (3.5-5.0) g/dL Amylase 55 (30-110) U/L Lipase 88 (23-300) U/L Disposition Clinical Impression: Nausea and vomiting, Dehydration Disposition: HOME SELF-CARE Instructions (If sedation given, give patient instructions): Acute Nausea and Vomiting (ED) Additional Instructions: Return to the emergency department with any new, worsening, or concerning symptoms. You can take the Reglan up to every 6 hours as needed for nausea and vomiting. Follow up with your primary care provider in 1-2 days. Prescriptions: Metoclopramide [Reglan] 10 mg PO Q6H PRN #30 tab PRN Reason: Nausea And Vomiting Is patient prescribed a controlled substance at d/c from ED?: No Referrals: Francesca Daniels MD [Primary Care Provider] - 1-2 days Time of Disposition: 16:32
[2025-01-18] MEDS: SODIUM CHLORIDE 0.9% 1,000 ML IV ONE (15:47)
[2025-01-18] MEDS: METOCLOPRAMIDE 5 MG/ML 2 ML VIAL IVP STA (15:52)
[2025-01-18 16:22] LABS: Magnesium 2.2 mg/dL (1.6-2.3)
[2025-01-18 16:48] VITALS: BP 171/79; PULSE 71; RESP 18; TEMP 97.8
== END 2025-01-18 16:47 | disposition home or self-care (01) ==
LOC: EC 13:13
DX: E86.0 Dehydration (principal); R11.2 Nausea with vomiting, unspecified; Z87.891 Personal history of nicotine dependence; Z87.19 Personal history of other diseases of the digestive system
CPT/HCPCS: 36415; 80053; 82150; 83605; 83690; 83735; 85025; 99284; 96374; 96361; J2765

== ENCOUNTER 2025-01-24 11:16 | Emergency (ER) | payer MEDICARE ==
--- NOTE | 2025-01-24 12:06 | ED ---
Abdominal Pain HPI - General Source: patient, RN notes reviewed Mode of arrival: ambulatory Limitations: no limitations <Cintia Krishnamurthy - Last Filed: 01/24/25 12:06> - General Source: patient, RN notes reviewed Mode of arrival: ambulatory Limitations: no limitations <Donny Teague - Last Filed: 01/24/25 15:25> - General Chief Complaint: Nausea/Vomiting/Diarrhea Stated Complaint: dehydration Time Seen by Provider: 01/24/25 12:06 - History of Present Illness Initial Comments: Quick note: 69-year-old female presented the ER for evaluation of abdominal pain. Patient reports she really is currently being treated for diverticulitis. Patient is endorsing lower abdominal pain. (Cintia Krishnamurthy) Patient is a 69-year-old female present to the emergency department with concern for dehydration. Patient has occasional nausea. Patient states no vomiting. Patient states decrease fluid intake. Patient had diarrhea twice a few days ago. Patient did have a few episodes a week ago and was put on antibiotics at that time. Patient denies any significant abdominal discomfort at this time. Patient just wants IV fluids for her concern for dehydration. (Donny Teague) - Related Data Home Medications Medication Instructions Recorded Confirmed clonazePAM [KlonoPIN] 0.5 mg PO HS 05/21/15 01/11/23 estradioL [Estrace] 1 mg PO QAM 05/21/15 01/11/23 Escitalopram Oxalate [Lexapro] 20 mg PO QAM 08/12/21 01/11/23 amLODIPine BESYLATE 5 mg PO QAM 08/12/21 01/11/23 busPIRone HCL [Buspirone HCl] 5 mg PO TID 08/17/22 01/11/23 Isosorbide Mononitrate [Isosorbide 15 mg PO 1200 01/07/23 01/11/23 Mononitrate ER] Magnesium 250 mg PO DAILY PRN 01/07/23 01/11/23 Metoprolol Tartrate 12.5 mg PO QAM 01/07/23 01/11/23 Aspirin 325 mg PO DAILY PRN 01/11/23 01/11/23 Previous Rx's Medication Instructions Recorded Metoclopramide [Reglan] 10 mg PO Q6H PRN #30 tab 01/18/25 Allergies Allergy/AdvReac Type Severity Reaction Status Date / Time No Known Allergies Allergy Verified 12/18/24 16:03 Review of Systems ROS Other: All systems not noted in ROS Statement are negative. <Cintia Krishnamurthy - Last Filed: 01/24/25 12:06> ROS Other: All systems not noted in ROS Statement are negative. Constitutional: Denies: fever Eyes: Denies: eye pain ENT: Denies: ear pain Respiratory: Denies: dyspnea Cardiovascular: Denies: chest pain Gastrointestinal: Reports: as per HPI, nausea. Denies: abdominal pain <Donny Teague - Last Filed: 01/24/25 15:25> ROS Statement: Those systems with pertinent positive or pertinent negative responses have been documented in the HPI. Past Medical History Past Medical History: GERD/Reflux, Hyperlipidemia, Hypertension, Renal Disease Additional Past Medical History / Comment(s): Abnormal stress test, fatigue, SOB with exertion, "twinges of chest pain". Past bradycardia, L kidney functions at 37%, hemorrhoids, past hypoglycemia History of Any Multi-Drug Resistant Organisms: None Reported Past Surgical History: Hernia Repair, Hysterectomy Additional Past Surgical History / Comment(s): SEPTOPLASTY, COLONOSCOPY, R inguinal hernia Past Anesthesia/Blood Transfusion Reactions: No Reported Reaction Additional Past Anesthesia/Blood Transfusion Reaction / Comment(s): Pt has never received blood. Past Psychological History: Anxiety, Depression Smoking Status: Former smoker Past Alcohol Use History: Rare Past Drug Use History: None Reported - Past Family History Mother Family Medical History: Cancer, Coronary Artery Disease (CAD), Liver Disease Additional Family Medical History / Comment(s): Lung cancer,HEPATITIS,CABG Father Family Medical History: Diabetes Mellitus, Liver Disease Additional Family Medical History / Comment(s): CIRRHOSIS OF LIVER-ALCOHOLISM <Cintia Krishnamurthy - Last Filed: 01/24/25 12:06> General Exam Limitations: no limitations <Cintia Krishnamurthy - Last Filed: 01/24/25 12:06> Limitations: no limitations General appearance: alert, in no apparent distress Head exam: Present: normocephalic Eye exam: Present: normal appearance ENT exam: Present: normal oropharynx Neck exam: Present: normal inspection Respiratory exam: Present: normal lung sounds bilaterally Cardiovascular Exam: Present: regular rate, normal rhythm GI/Abdominal exam: Present: soft. Absent: tenderness, pulsatile mass Extremities exam: Present: normal inspection Neurological exam: Present: alert Psychiatric exam: Present: normal affect, normal mood Skin exam: Present: normal color <Donny Teague - Last Filed: 01/24/25 15:25> - General Exam Comments Initial Comments: Visual Physical Exam Vital signs reviewed General: Well-appearing, nontoxic, no acute distress. Anxious Head: Normocephalic, atraumatic Eyes: PERRLA, EOMI ENT: Airway patent Chest: Nonlabored breathing Skin: No visual rash, normal skin tone Neuro: Alert and oriented 3 Musculoskeletal: No gross abnormalities (Cintia Krishnamurthy) Course Vital Signs 01/24/25 11:50 Temperature 97.6 F Pulse Rate 89 Respiratory 16 Rate Blood Pressure 135/75 O2 Sat by Pulse 99 Oximetry Medical Decision Making <Cintia Krishnamurthy - Last Filed: 01/24/25 12:06> - Lab Data Result diagrams: 01/24/25 12:03 01/24/25 12:03 <Donny Teague - Last Filed: 01/24/25 15:25> - Medical Decision Making I performed the quick note portion of this chart. Electronically signed by Jerzy Krishnamurthy PA-C (Cintia Krishnamurthy) Was pt. sent in by a medical professional or institution ([facility], [employer], urgent care, hospital, or [place] health [place] facility...) When possible be specific @ -No Did you speak to anyone other than the patient for history (EMS, parent, family, police, friend...)? What history was obtained from this source @ -No Did you review nursing and triage notes (agree or disagree)? Why? @ -I reviewed and agree with nursing and triage notes Were old charts reviewed (outside hosp., previous admission, EMS record, old EKG, old radiological studies, urgent care reports/EKG's, [place] [facility] [place] records)? Report findings @ -No old charts were reviewed Differential Diagnosis (chest pain, altered mental status, abdominal pain women, abdominal pain men, vaginal bleeding, weakness, fever, dyspnea, syncope, headache, dizziness, GI bleed, back pain, seizure, CVA, palpatations, mental health, musculoskeletal)? @ -Differential Weakness: Hypoglycemia, shock, sepsis, hyponatremia, anemia, infection, OH, ETOH, adverse medicine reaction, overdose, stroke, this is not meant to be an all-inclusive list. EKG interpreted by me (3pts min.). @ -Sinus rhythm at a rate of 72. Normal axis. Normal QRS. Nonspecific T waves. X-rays interpreted by me (1pt min.). @ -None done CT interpreted by me (1pt min.). @ -None done U/S interpreted by me (1pt. min.). @ -None done What testing was considered but not performed or refused? (CT, X-rays, U/S, labs)? Why? @ -Considered imaging however abdomen is nontender and no complaints of abdominal pain What meds were considered but not given or refused? Why? @ -Offered Reglan and Zofran however patient refuses stating that they do not help her. Did you discuss the management of the patient with other professionals (pro fessionals i.e. , PA, [employer] OPERATOR, lab, RT, psych nurse, mental health social worker, senior customer service representative, teacher, administrative services officer, case assistant)? Give summary @ -No Was smoking cessation discussed for >3mins.? @ -No Was critical care preformed (if so, how long)? @ -No Were there social determinants of health that impacted care today? How? (Homelessness, low income, unemployed, alcoholism, drug addiction, transportation, low edu. Level, literacy, decrease access to med. care, skilled nursing, rehab)? @ -No Was there de-escalation of care discussed even if they declined (Discuss DNR or withdrawal of care, Hospice)? DNR status @ -No What co-morbidities impacted this encounter? (DM, HTN, Smoking, COPD, CAD, Cancer, CVA, ARF, Chemo, Hep., AIDS, mental health diagnosis, sleep apnea, morbid obesity)? @ -Recent diagnosis of diverticulitis Was patient admitted / discharged? Hospital course, mention meds given and route, prescriptions, significant lab abnormalities, going to OR and other pertinent info. @ -Patient presents with recent diagnosis of diverticulitis, currently on antibiotics. No abdominal pain however concerns for dehydration. Evaluation is unremarkable. Patient will receive 1 L of fluid prior to discharge. Patient updated. Undiagnosed new problem with uncertain prognosis? @ -No Drug Therapy requiring intensive monitoring for toxicity (Heparin, Nitro, Insulin, Cardizem)? @ -No Were any procedures done? @ -No Diagnosis/symptom? @ -Dehydration Acute, or Chronic, or Acute on Chronic? @ -Acute Uncomplicated (without systemic symptoms) or Complicated (systemic symptoms)? @ -Default Side effects of treatment? @ -No Exacerbation, Progression, or Severe Exacerbation? @ -No Poses a threat to life or bodily function? How? (Chest pain, [place], OH, pneumonia, PE, COPD, DKA, ARF, appy, cholecystitis, CVA, Diverticulitis, Homicidal, Suicidal, threat to staff... and all critical care pts) @ -No (Donny Teague) - Lab Data Lab Results 01/24/25 01/24/25 01/24/25 Range/Units 12:03 12:03 13:18 WBC 7.64 (4.50-10.00) 10*3/uL RBC 4.09 L (4.10-5.20) 10*6/uL Hgb 13.4 (12.0-15.0) g/dL Hct 39.2 (37.2-46.3) % MCV 95.8 (80.0-97.0) fL MCH 32.8 H (27.0-32.0) pg MCHC 34.2 (32.0-37.0) g/dL Plt Count 297 (140-440) 10*3/uL MPV 8.8 L (9.5-12.2) fL Immature Gran % (Auto) 0.3 % Neutrophils % 42.2 % Lymphocytes % 48.8 % Monocytes % 7.7 % Eosinophils % 0.5 % Basophils % 0.5 % Immature Gran # 0.02 (0.00-0.04) 10*3/uL Neutrophils # 3.22 (1.80-7.70) 10*3/uL Lymphocytes # 3.73 (0.90-5.00) 10*3/uL Monocytes # 0.59 (0.20-1.00) 10*3/uL Eosinophils # 0.04 (0.04-0.35) 10*3/uL Basophils # 0.04 (0.00-0.10) 10*3/uL Sodium 138 (137-145) mmol/L Potassium 3.9 (3.5-5.1) mmol/L Chloride 98 (98-107) mmol/L Carbon Dioxide 28 (22-30) mmol/L Anion Gap 12 mmol/L BUN 15 (7-17) mg/dL Creatinine 0.96 (0.52-1.04) mg/dL Est GFR (CKD-EPI)AfAm 71 (>60 ml/min/1.73 sqM) Est GFR (CKD-EPI)NonAf 61 (>60 ml/min/1.73 sqM) Glucose 118 H (74-99) mg/dL Calcium 9.8 (8.4-10.2) mg/dL Total Bilirubin 0.5 (0.2-1.3) mg/dL AST 25 (14-36) U/L ALT 16 (4-34) U/L Alkaline Phosphatase 89 (38-126) U/L Total Protein 7.3 (6.3-8.2) g/dL Albumin 4.6 (3.5-5.0) g/dL Amylase 45 (30-110) U/L Lipase 56 (23-300) U/L Urine Color Light Yellow Urine Appearance Cloudy H (Clear) Urine pH 6.5 (5.0-8.0) Ur Specific [place] 1.014 (1.001-1.035) Urine Protein Negative (Negative) Urine Glucose (UA) Negative (Negative) Urine Ketones 1+ H (Negative) Urine Blood Negative (Negative) Urine Nitrite Negative (Negative) Urine Bilirubin Negative (Negative) Urine Urobilinogen <2.0 (<2.0) mg/dL Ur Leukocyte Esterase Small H (Negative) Urine RBC 2 (0-5) /hpf Urine WBC 5 (0-5) /hpf Ur Squamous Epith Cells 3 (0-4) /hpf Urine Bacteria Rare H (None) /hpf Hyaline Casts 1 (0-2) /lpf Urine Mucus Occasional H (None) /hpf Disposition <Cintia Krishnamurthy - Last Filed: 01/24/25 12:06> Is patient prescribed a controlled substance at d/c from ED?: No Time of Disposition: 15:25 <Donny Teague - Last Filed: 01/24/25 15:25> Clinical Impression: Dehydration Disposition: HOME SELF-CARE Condition: Stable Instructions (If sedation given, give patient instructions): Diverticulitis (ED), Dehydration (ED) Additional Instructions: Please do follow-up with your primary care physician in the next day or 2 for recheck. Return for increased pain, weakness, change or worsening symptoms or any other concerns. Referrals: Francesca Daniels MD [Primary Care Provider] - 1-2 days
[2025-01-24 12:14] LABS: Basophils # (A) 0.04 10*3/uL (0.00-0.10); Basophils % (A) 0.5 %; Eosinophils # (A) 0.04 10*3/uL (0.04-0.35); Eosinophils % (A) 0.5 %; HCT 39.2 % (37.2-46.3); HGB 13.4 g/dL (12.0-15.0); Lymphocytes # (A) 3.73 10*3/uL (0.90-5.00); Lymphocytes % (A) 48.8 %; MCH 32.8 pg (27.0-32.0); MCHC 34.2 g/dL (32.0-37.0); MCV 95.8 fL (80.0-97.0); Monocytes # (A) 0.59 10*3/uL (0.20-1.00); Monocytes % (A) 7.7 %; Neutrophils # (A) 3.22 10*3/uL (1.80-7.70); Neutrophils % (A) 42.2 %; Platelet Count 297 10*3/uL (140-440); RBC 4.09 10*6/uL (4.10-5.20); RDW 13.0 % (11.5-14.5); WBC 7.64 10*3/uL (4.50-10.00)
[2025-01-24 12:34] LABS: ALT 16 U/L (4-34); AST 25 U/L (14-36); African American GFR (CKD) 71 (>60 ml/min/1.73 sqM); Albumin 4.6 g/dL (3.5-5.0); Alkaline Phosphatase 89 U/L (38-126); Amylase 45 U/L (30-110); Anion Gap 12 mmol/L; Blood Urea Nitrogen 15 mg/dL (7-17); Calcium 9.8 mg/dL (8.4-10.2); Carbon Dioxide 28 mmol/L (22-30); Chloride 98 mmol/L (98-107); Glucose 118 mg/dL (74-99); Lipase 56 U/L (23-300); Non-African American GFR(CKD) 61 (>60 ml/min/1.73 sqM); Potassium 3.9 mmol/L (3.5-5.1); Sodium 138 mmol/L (137-145); Total Protein 7.3 g/dL (6.3-8.2)
[2025-01-24 14:20] LABS: Bacteria,Urine Rare /hpf; Bilirubin,Urine Negative (Negative); Blood,Urine Negative (Negative); Color,Urine Light Yellow; Glucose,Urine (UA) Negative (Negative); Hyaline Casts,Urine 1 /lpf (0-2); Ketones,Urine 1+ (Negative); Leukocyte Esterase,Urine Small (Negative); Mucus,Urine Occasional /hpf; Nitrite,Urine Negative (Negative); PH, Urine 6.5 (5.0-8.0); Protein,Urine Negative (Negative); RBC,Urine 2 /hpf (0-5); Specific Gravity,Urine 1.014 (1.001-1.035); Squamous Epithelial Cell,Urine 3 /hpf (0-4); Urobilinogen,Urine <2.0 mg/dL (<2.0); WBC,Urine 5 /hpf (0-5)
[2025-01-24] MEDS: SODIUM CHLORIDE 0.9% 1,000 ML IV STA (15:58)
[2025-01-24 18:11] VITALS: BP 171/77; PULSE 70; RESP 18; TEMP 98.6
== END 2025-01-24 17:40 | disposition home or self-care (01) ==
LOC: EC 11:16
DX: E86.0 Dehydration (principal); Z87.891 Personal history of nicotine dependence
CPT/HCPCS: 36415; 80053; 81001; 82150; 83690; 85025; 93005; 96360; 99284

== ENCOUNTER → 2025-02-02 | Outpatient (CLI) | payer MEDICARE ==
[2025-02-02 10:38] LABS: African American GFR (CKD) 70 (>60 ml/min/1.73 sqM); Blood Urea Nitrogen 11 mg/dL (7-17); Non-African American GFR(CKD) 61 (>60 ml/min/1.73 sqM)
--- NOTE | 2025-02-02 16:00 | CT ---
EXAMINATION TYPE: CT abdomen pelvis w con DATE OF EXAM: 02/02/2025 12:08 PM COMPARISON: 12/18/2024 and 09/13/2023 CLINICAL INDICATION: Female, 69 years old with history of K57.32 diverticulitis TECHNIQUE: CT of the abdomen and pelvis after IV contrast. Delayed images through the kidneys and cor onal/sagittal reconstructions performed. Contrast used:100 ml mL of Isovue 300 with IV Contrast, Oral contrast used: with Oral Contrast CT DLP: 800 mGycm, Automated exposure control for dose reduction was used. FINDINGS: LOWER CHEST: Heart upper limits of normal size without pericardial effusion. Emphysematous changes in the visualized lower lungs. No pleural effusion. ABDOMEN LIVER: Unremarkable GALLBLADDER AND BILE DUCTS: Mild prominence to the bile duct is unchanged. No abnormal gallbladder di stention. PANCREAS: Unremarkable. SPLEEN: Unremarkable. ADRENAL GLANDS: Unremarkable. KIDNEYS AND URETERS: Numerous bilateral renal cortical cysts, most of which are very small 5 mm or le ss. Largest on the left measures 2.3 cm. There is also a 1.4 cm soft tissue cortical lesion lateral m id left kidney which appears have been present back on 09/13/2023 as well suggesting a hemorrhagic/pro teinaceous cyst. Symmetric uptake and excretion of contrast from both kidneys. PELVIS BLADDER: No evidence for wall thickening or mass given limitations of exam. REPRODUCTIVE: Uterus surgically absent. Neither ovary is visualized. No abnormal fluid collection in the pelvis. ABDOMEN & PELVIS STOMACH AND BOWEL: No evidence of bowel obstruction. Normal appendix. Oral contrast progressed to the terminal ileum. There is generalized colonic diverticulosis. Segmental circumferential colonic wall thickening suggested at the hepatic flexure, mid transverse colon, splenic flexure and descending col on as well as the proximal and mid sigmoid colon. No discrete pericolonic inflammatory change is derrick rly identified. Moderate stool in the mid to distal sigmoid and rectum. Scattered mild stool elsewher e. PERITONEUM/RETROPERITONEUM: No evidence of pneumoperitoneum or free fluid. VASCULATURE: No evidence of aortic aneurysm. MUSCULOSKELETAL: No acute osseous abnormalities LYMPH NODES: No gross evidence for lymphadenopathy. SOFT TISSUE/ABDOMINAL WALL: Unremarkable IMPRESSION: 1. Generalized colonic diverticulosis, greatest along the left side of the colon. While there is seg mental circumferential colonic wall thickening throughout, inflammatory changes do not appear to be c entered on any particular diverticula. Correlate for nonspecific infectious or inflammatory colitis. 2. Innumerable bilateral renal cortical cysts, most of which are 5 mm and smaller. Consider autosomal recessive polycystic kidney disease. [facility], Workstation: [id number], 02/02/2025 3:58 PM
== END | disposition home or self-care (01) ==
LOC: RADCTMAIN 09:53
PROVIDERS: ATTEND Internal Medicine Gastroenterology
DX: K57.32 Diverticulitis of large intestine without perforation or abscess without bleeding (principal); N28.9 Disorder of kidney and ureter, unspecified; K57.30 Diverticulosis of large intestine without perforation or abscess without bleeding; N28.1 Cyst of kidney, acquired
CPT/HCPCS: 82565; 84520; 74177; 36415; Q9967

== ENCOUNTER 2025-02-15 15:55 | Emergency (ER) | payer MEDICARE ==
[2025-02-15 15:59] VITALS: RESP 18; TEMP 97.5
--- NOTE | 2025-02-15 17:35 | ED ---
Psych HPI - General Source: patient, EMS, RN notes reviewed Mode of arrival: EMS <Jeanette Aguilar - Last Filed: 02/15/25 19:17> <Jonah Lee - Last Filed: 02/15/25 20:49> - General Chief Complaint: Psychiatric Symptoms Stated Complaint: Mental health Time Seen by Provider: 02/15/25 17:32 - History of Present Illness Initial Comments: 70-year-old female presenting for anxiety. States she has been under a lot of stress lately due to chronic health issues. States she has been having frequent panic attacks. States she went to get a massage today and "broke down". States she takes Klonopin for anxiety and feels as though she needs more of the medication as it is not relieving her anxiety as it normally does. Patient does follow-up with a counselor outpatient. Denies suicidal or homicidal ideations. (Jeanette Aguilar) - Related Data Home Medications Medication Instructions Recorded Confirmed clonazePAM [KlonoPIN] 0.5 mg PO HS 05/21/15 01/11/23 estradioL [Estrace] 1 mg PO QAM 05/21/15 01/11/23 Escitalopram Oxalate [Lexapro] 20 mg PO QAM 08/12/21 01/11/23 amLODIPine BESYLATE 5 mg PO QAM 08/12/21 01/11/23 busPIRone HCL [Buspirone HCl] 5 mg PO TID 08/17/22 01/11/23 Isosorbide Mononitrate [Isosorbide 15 mg PO 1200 01/07/23 01/11/23 Mononitrate ER] Magnesium 250 mg PO DAILY PRN 01/07/23 01/11/23 Metoprolol Tartrate 12.5 mg PO QAM 01/07/23 01/11/23 Aspirin 325 mg PO DAILY PRN 01/11/23 01/11/23 Previous Rx's Medication Instructions Recorded Metoclopramide [Reglan] 10 mg PO Q6H PRN #30 tab 01/18/25 hydrOXYzine pamoate [Vistaril] 50 mg PO BID 7 Days #14 capsule 02/15/25 Allergies Allergy/AdvReac Type Severity Reaction Status Date / Time No Known Allergies Allergy Verified 12/18/24 16:03 Review of Systems ROS Other: All systems not noted in ROS Statement are negative. <Jeanette Aguilar - Last Filed: 02/15/25 19:17> ROS Other: All systems not noted in ROS Statement are negative. <RosaJonah Eleuterio - Last Filed: 02/15/25 20:49> ROS Statement: Those systems with pertinent positive or pertinent negative responses have been documented in the HPI. Past Medical History Past Medical History: GERD/Reflux, Hyperlipidemia, Hypertension, Renal Disease Additional Past Medical History / Comment(s): Abnormal stress test, fatigue, SOB with exertion, "twinges of chest pain". Past bradycardia, L kidney functions at 37%, hemorrhoids, past hypoglycemia History of Any Multi-Drug Resistant Organisms: None Reported Past Surgical History: Hernia Repair, Hysterectomy Additional Past Surgical History / Comment(s): SEPTOPLASTY, COLONOSCOPY, R inguinal hernia Past Anesthesia/Blood Transfusion Reactions: No Reported Reaction Additional Past Anesthesia/Blood Transfusion Reaction / Comment(s): Pt has never received blood. Past Psychological History: Anxiety, Depression Smoking Status: Former smoker Past Alcohol Use History: Rare Past Drug Use History: None Reported - Past Family History Mother Family Medical History: Cancer, Coronary Artery Disease (CAD), Liver Disease Additional Family Medical History / Comment(s): Lung cancer,HEPATITIS,CABG Father Family Medical History: Diabetes Mellitus, Liver Disease Additional Family Medical History / Comment(s): CIRRHOSIS OF LIVER-ALCOHOLISM <Jeanette Aguilar - Last Filed: 02/15/25 19:17> General Exam Limitations: no limitations General appearance: alert, in no apparent distress Head exam: Present: atraumatic, normocephalic, normal inspection Eye exam: Present: normal appearance, PERRL, EOMI. Absent: scleral icterus, conjunctival injection, periorbital swelling ENT exam: Present: normal exam, mucous membranes moist Neurological exam: Present: alert, oriented X3 Psychiatric exam: Present: anxious, flat affect. Absent: homicidal ideation, suicidal ideation Skin exam: Present: warm, dry, intact, normal color. Absent: rash <Jeanette Aguilar - Last Filed: 02/15/25 19:17> Course Vital Signs 02/15/25 02/15/25 02/15/25 15:56 16:56 18:29 Temperature 97.5 F L Pulse Rate 62 67 86 Respiratory 18 18 18 Rate Blood Pressure 198/75 186/91 177/91 O2 Sat by Pulse 100 99 98 Oximetry 02/15/25 19:18 Temperature Pulse Rate 65 Respiratory 18 Rate Blood Pressure 177/86 O2 Sat by Pulse 97 Oximetry Medical Decision Making <Jeanette Aguilar - Last Filed: 02/15/25 19:17> <CailinindiraJonah - Last Filed: 02/15/25 20:49> - Medical Decision Making Was pt. sent in by a medical professional or institution (, PA, SALES COMPENSATION ANALYST, urgent care, hospital, or jail...) When possible be specific @ -[No] Did you speak to anyone other than the patient for history (EMS, parent, family, police, friend...)? What history was obtained from this source @ -[No] Did you review nursing and triage notes (agree or disagree)? Why? @ -[I reviewed and agree with nursing and triage notes] Were old charts reviewed (outside hosp., previous admission, EMS record, old EKG, old radiological studies, urgent care reports/EKG's, jail records)? Report findings @ -[No old charts were reviewed] Differential Diagnosis (chest pain, altered mental status, abdominal pain women, abdominal pain men, vaginal bleeding, weakness, fever, dyspnea, syncope, headache, dizziness, GI bleed, back pain, seizure, CVA, palpatations, mental health, musculoskeletal)? @ -Differential Mental Health Depression, anxiety, bipolar, psychosis, schizophrenia, borderline personality, situational depression, adjustment disorder, behavioral disorder, brain tumor, malingering, substance abuse, encephalopathy, medication reaction, dementia, hypothyroidism, degenerative neurologic disorder, lupus.... This is not meant to be all-inclusive list EKG interpreted by me (3pts min.). @ -None X-rays interpreted by me (1pt min.). @ -[None done] CT interpreted by me (1pt min.). @ -[None done] U/S interpreted by me (1pt. min.). @ -[None done] What testing was considered but not performed or refused? (CT, X-rays, U/S, labs)? Why? @ -[None] What meds were considered but not given or refused? Why? @ -[None] Did you discuss the management of the patient with other professionals (professionals i.e. , PA, SALES COMPENSATION ANALYST, lab, RT, psych nurse, school social worker, salvage engineer, teacher, trust officer, window caser)? Give summary @ -[No] Was smoking cessation discussed for >3mins.? @ -[No] Was critical care preformed (if so, how long)? @ -[No] Were there social determinants of health that impacted care today? How? (Homelessness, low income, unemployed, alcoholism, drug addiction, transportation, low edu. Level, literacy, decrease access to med. care, custodial, rehab)? @ -[No] Was there de-escalation of care discussed even if they declined (Discuss DNR or withdrawal of care, Hospice)? DNR status @ -[No] What co-morbidities impacted this encounter? (DM, HTN, Smoking, COPD, CAD, Cancer, CVA, ARF, Chemo, Hep., AIDS, mental health diagnosis, sleep apnea, morbid obesity)? @ -[None] Was patient admitted / discharged? Hospital course, mention meds given and route, prescriptions, significant lab abnormalities, going to OR and other pertinent info. @ -70-year-old female presenting for anxiety. States she is having frequent panic attacks. States she does have chronic medical conditions she has been dealing with but denies any new medical complaints today. Denies suicidal or homicidal ideation. Patient is medically cleared to be seen by EPS. While awaiting to be seen by EPS, patient reports she is having a panic attack. Patient was given dose of Ativan. (Jeanette Aguilar) Patient care signed out to me by physician entry level administrative assistant pending EPS evaluation. Patient evaluated by EPS recommended discharge. Psychiatry requested that I provide patient with Vistaril 50 mg twice daily for 7 days. (Jonah Lee) - Lab Data Lab Results 02/15/25 Range/Units 18:09 Urine Opiates Screen Detected H (NotDetected) Ur Oxycodone Screen Not Detected (NotDetected) Urine Methadone Screen Not Detected (NotDetected) Ur Barbiturates Screen Not Detected (NotDetected) U Tricyclic Antidepress Not Detected (NotDetected) Ur Phencyclidine Scrn Not Detected (NotDetected) Ur Amphetamines Screen Not Detected (NotDetected) U Methamphetamines Scrn Not Detected (NotDetected) U Benzodiazepines Scrn Not Detected (NotDetected) Urine Cocaine Screen Not Detected (NotDetected) U Marijuana (THC) Screen Not Detected (NotDetected) Disposition <Jeanette Aguilar - Last Filed: 02/15/25 19:17> Is patient prescribed a controlled substance at d/c from ED?: No Time of Disposition: 20:49 <Jonah Lee - Last Filed: 02/15/25 20:49> Clinical Impression: Acute anxiety Disposition: HOME SELF-CARE Condition: Fair Prescriptions: hydrOXYzine pamoate [Vistaril] 50 mg PO BID 7 Days #14 capsule Referrals: Francesca Daniels MD [Primary Care Provider] - 1-2 days
[2025-02-15] MEDS: LORazepam 1 MG TAB PO STA (18:03)
[2025-02-15 18:28] LABS: Barbiturate Screen,Urine Not Detected (NotDetected); Benzodiazepines Screen,Urine Not Detected (NotDetected); Opiate Screen,Urine Detected (NotDetected); Oxycodone Screen, Urine Not Detected (NotDetected); Phencyclidine Screen,Urine Not Detected (NotDetected); Tricyclic Antidepressant,Urine Not Detected (NotDetected); Urn Cannabinoid Scrn Not Detected (NotDetected)
[2025-02-15 21:03] VITALS: BP 184/91; PULSE 74
== END 2025-02-15 21:03 | disposition home or self-care (01) ==
LOC: EC 15:55 → SUPCPDRO 15:55 → EC 21:03
DX: F41.9 Anxiety disorder, unspecified (principal); Z87.891 Personal history of nicotine dependence
CPT/HCPCS: 80306; 82075; 99285

== ENCOUNTER 2025-02-16 01:58 | Emergency (ER) | payer MEDICARE ==
[2025-02-16 02:06] VITALS: TEMP 98
--- NOTE | 2025-02-16 02:43 | ED ---
Female Urogenital HPI - General Chief complaint: Urogenital Stated complaint: Abdominal Pain Time Seen by Provider: 02/16/25 02:41 Source: patient, EMS, RN notes reviewed, old records reviewed Mode of arrival: EMS Limitations: no limitations - History of Present Illness Initial comments: 70-year-old female presented to ER via EMS for evaluation of abdominal pain. Patient states she has had intermittent lower abdominal/pelvic pain for "a long time". She reports over the past 2 weeks she has had an increase in intermittent groin pain and painful urination. She states she was hospitalized at [facility] for potential kidney stone and is scheduled to follow-up with mall manager. Patient reports it is a sharp lower a bdominal/pelvic pain. She also admits to nausea given the pain. She has taken [id number] Excedrin and marijuana Gummies for pain. She denies any abnormal vaginal bleeding or discharge. Patient does admit to mild left lower back pain. Denies any fevers or chills. Patient seen yesterday for anxiety and ultimately discharged home. She states she was not having urinary complaints at that time. She denies any diarrhea, constipation, vomiting, chest pain, shortness of breath, dizziness, lightheadedness or other complaints or - Related Data Home Medications Medication Instructions Recorded Confirmed clonazePAM [KlonoPIN] 0.5 mg PO HS 05/21/15 01/11/23 estradioL [Estrace] 1 mg PO QAM 05/21/15 01/11/23 Escitalopram Oxalate [Lexapro] 20 mg PO QAM 08/12/21 01/11/23 amLODIPine BESYLATE 5 mg PO QAM 08/12/21 01/11/23 busPIRone HCL [Buspirone HCl] 5 mg PO TID 08/17/22 01/11/23 Isosorbide Mononitrate [Isosorbide 15 mg PO 1200 01/07/23 01/11/23 Mononitrate ER] Magnesium 250 mg PO DAILY PRN 01/07/23 01/11/23 Metoprolol Tartrate 12.5 mg PO QAM 01/07/23 01/11/23 Aspirin 325 mg PO DAILY PRN 01/11/23 01/11/23 Previous Rx's Medication Instructions Recorded Metoclopramide [Reglan] 10 mg PO Q6H PRN #30 tab 01/18/25 hydrOXYzine pamoate [Vistaril] 50 mg PO BID 7 Days #14 capsule 02/15/25 Allergies Allergy/AdvReac Type Severity Reaction Status Date / Time No Known Allergies Allergy Verified 02/16/25 02:06 Review of Systems ROS Statement: Those systems with pertinent positive or pertinent negative responses have been documented in the HPI. ROS Other: All systems not noted in ROS Statement are negative. Past Medical History Past Medical History: GERD/Reflux, Hyperlipidemia, Hypertension, Renal Disease Additional Past Medical History / Comment(s): Abnormal stress test, fatigue, SOB with exertion, "twinges of chest pain". Past bradycardia, L kidney functions at 37%, hemorrhoids, past hypoglycemia History of Any Multi-Drug Resistant Organisms: None Reported Past Surgical History: Hernia Repair, Hysterectomy Additional Past Surgical History / Comment(s): SEPTOPLASTY, COLONOSCOPY, R inguinal hernia Past Anesthesia/Blood Transfusion Reactions: No Reported Reaction Additional Past Anesthesia/Blood Transfusion Reaction / Comment(s): Pt has never received blood. Past Psychological History: Anxiety, Depression Smoking Status: Former smoker Past Alcohol Use History: Rare Past Drug Use History: Marijuana - Past Family History Mother Family Medical History: Cancer, Coronary Artery Disease (CAD), Liver Disease Additional Family Medical History / Comment(s): Lung cancer,HEPATITIS,CABG Father Family Medical History: Diabetes Mellitus, Liver Disease Additional Family Medical History / Comment(s): CIRRHOSIS OF LIVER-ALCOHOLISM General Exam Limitations: no limitations General appearance: alert, in no apparent distress Respiratory exam: Present: normal lung sounds bilaterally. Absent: respiratory distress, wheezes, rales, rhonchi, stridor Cardiovascular Exam: Present: regular rate, normal rhythm, normal heart sounds. Absent: systolic murmur, diastolic murmur, rubs, gallop, clicks GI/Abdominal exam: Present: tenderness (left sided) Back exam: Present: normal inspection, full ROM, CVA tenderness (R) Neurological exam: Present: alert, oriented X3, CN II-XII intact Skin exam: Present: warm, dry, intact, normal color. Absent: rash Course Vital Signs 02/16/25 02/16/25 01:59 04:18 Temperature 98 F Pulse Rate 71 74 Respiratory 18 17 Rate Blood Pressure 164/86 174/64 O2 Sat by Pulse 99 100 Oximetry - Reevaluation(s) Reevaluation #1: 02/16/25 03:50 Patient reevaluated. No signs of acute distress. Patient educated on today's findings and is agreeable for discharge. Patient is requesting Dilaudid prior to discharge. Medical Decision Making - Medical Decision Making Was pt. sent in by a medical professional or institution (RADHAMES Maciel, SPORTS BOOK WRITER, urgent care, hospital, or jail...) When possible be specific @ -No Did you speak to anyone other than the patient for history (EMS, parent, family, police, friend...)? What history was obtained from this source @ -No Did you review nursing and triage notes (agree or disagree)? Why? @ -I reviewed and agree with nursing and triage notes Were old charts reviewed (outside hosp., previous admission, EMS record, old EKG, old radiological studies, urgent care reports/EKG's, jail records)? Report findings @ -I reviewed ER visit from 02-15-2025. Patient evaluated for anxiety and ultimately discharged home.] Differential Diagnosis (chest pain, altered mental status, abdominal pain women, abdominal pain men, vaginal bleeding, weakness, fever, dyspnea, syncope, headache, dizziness, GI bleed, back pain, seizure, CVA, palpatations, mental health, musculoskeletal)? @ -Differential Abdominal Pain Women:Appendicitis, Cholecystitis, diverticulosis, ischemic bowel, pancreatitis, hepatitis, UTI, gastroenteritis, AAA, incarcerated hernia, bowel obstruction, constipation, inflammatory bowel, h epatitis, peptic ulcer disease, splenic infarction, perforated viscus, vulvitis, ovarian torsion, PID, kidney stone, placenta abruption, this is not meant to be an all-inclusive list EKG interpreted by me (3pts min.). @ -None done X-rays interpreted by me (1pt min.). @ -None done CT interpreted by me (1pt min.). @ -None done U/S interpreted by me (1pt. min.). @ -None done What testing was considered but not performed or refused? (CT, X-rays, U/S, labs)? Why? @ -CT ab and pelvis deferred as laboratory studies unremarkable. What meds were considered but not given or refused? Why? @ -None Did you discuss the management of the patient with other professionals (professionals i.e. RADHAMES Maciel, SPORTS BOOK WRITER, lab, RT, psych nurse, social media content specialist, bridal stylist sales consultant, teacher, identification officer, manager rn case)? Give summary @ -No Was smoking cessation discussed for >3mins.? @ -No Was critical care preformed (if so, how long)? @ -No Were there social determinants of health that impacted care today? How? (Homelessness, low income, unemployed, alcoholism, drug addiction, transportation, low edu. Level, literacy, decrease access to med. care, half-way, rehab)? @ -No Was there de-escalation of care discussed even if they declined (Discuss DNR or withdrawal of care, Hospice)? DNR status @ -No What co-morbidities impacted this encounter? (DM, HTN, Smoking, COPD, CAD, Cancer, CVA, ARF, Chemo, Hep., AIDS, mental health diagnosis, sleep apnea, morbid obesity)? @ -None Was patient admitted / discharged? Hospital course, mention meds given and route, prescriptions, significant lab abnormalities, going to OR and other pertinent info. @ -Discharge. 70-year-old female presented to ER via EMS for evaluation of pelvic pain. Upon arrival vital signs stable. Patient is extremely anxious during exam. Laboratory studies obtained unremarkable. Urinalysis with 1+ ketones for which patient received IV fluids along with symptomatic treatment in the emergency department. Patient will be discharged stable condition advised follow-up with PCP and GI. Strict return parameters discussed. Patient verbally stressed understand agree with care plan. Case discussed with ED attending Dr. White Undiagnosed new problem with uncertain prognosis? @ -No Drug Therapy requiring intensive monitoring for toxicity (Heparin, Nitro, Insulin, Cardizem)? @ -No Were any procedures done? @ -No Diagnosis/symptom? @ -Abdominal pain Acute, or Chronic, or Acute on Chronic? @ -Acute Uncomplicated (without systemic symptoms) or Complicated (systemic symptoms)? @ -Uncomplicated Side effects of treatment? @ -No Exacerbation, Progression, or Severe Exacerbation? @ -No Poses a threat to life or bodily function? How? (Chest pain, [place], AL, pneumonia, PE, COPD, DKA, ARF, appy, cholecystitis, CVA, Diverticulitis, Homicidal, Suicidal, threat to staff... and all critical care pts) @ -No - Lab Data Result diagrams: 02/16/25 02:09 02/16/25 02:09 Lab Results 02/16/25 02/16/25 02/16/25 Range/Units 02:09 02:09 02:28 WBC 8.75 (4.50-10.00) 10*3/uL RBC 4.15 (4.10-5.20) 10*6/uL Hgb 13.4 (12.0-15.0) g/dL Hct 38.9 (37.2-46.3) % MCV 93.7 (80.0-97.0) fL MCH 32.3 H (27.0-32.0) pg MCHC 34.4 (32.0-37.0) g/dL Plt Count 304 (140-440) 10*3/uL MPV 9.5 (9.5-12.2) fL Immature Gran % (Auto) 0.2 % Neutrophils % 46.2 % Lymphocytes % 45.6 % Monocytes % 6.9 % Eosinophils % 0.6 % Basophils % 0.5 % Immature Gran # 0.02 (0.00-0.04) 10*3/uL Neutrophils # 4.05 (1.80-7.70) 10*3/uL Lymphocytes # 3.99 (0.90-5.00) 10*3/uL Monocytes # 0.60 (0.20-1.00) 10*3/uL Eosinophils # 0.05 (0.04-0.35) 10*3/uL Basophils # 0.04 (0.00-0.10) 10*3/uL Sodium 139 (137-145) mmol/L Potassium 3.7 (3.5-5.1) mmol/L Chloride 100 (98-107) mmol/L Carbon Dioxide 29 (22-30) mmol/L Anion Gap 10 mmol/L BUN 9 (7-17) mg/dL Creatinine 0.73 (0.52-1.04) mg/dL Est GFR (CKD-EPI)AfAm >90 (>60 ml/min/1.73 sqM) Est GFR (CKD-EPI)NonAf 85 (>60 ml/min/1.73 sqM) Glucose 104 H (74-99) mg/dL Calcium 9.9 (8.4-10.2) mg/dL Total Bilirubin 0.4 (0.2-1.3) mg/dL AST 29 (14-36) U/L ALT 21 (4-34) U/L Alkaline Phosphatase 80 (38-126) U/L Total Protein 7.4 (6.3-8.2) g/dL Albumin 4.5 (3.5-5.0) g/dL Urine Color Colorless Urine Appearance Clear (Clear) Urine pH 7.5 (5.0-8.0) Ur Specific [place] 1.008 (1.001-1.035) Urine Protein Negative (Negative) Urine Glucose (UA) Negative (Negative) Urine Ketones 1+ H (Negative) Urine Blood Negative (Negative) Urine Nitrite Negative (Negative) Urine Bilirubin Negative (Negative) Urine Urobilinogen <2.0 (<2.0) mg/dL Ur Leukocyte Esterase Negative (Negative) Disposition Clinical Impression: Abdominal pain Disposition: HOME SELF-CARE Condition: Stable Additional Instructions: Follow-up PCP. Return to the ER for any new or worse concerns. Is patient prescribed a controlled substance at d/c from ED?: No Referrals: Francesca Daniels MD [Primary Care Provider] - 1-2 days Time of Disposition: 04:03
[2025-02-16] MEDS: SODIUM CHLORIDE 0.9% 1,000 ML IV ONE (02:44)
[2025-02-16] MEDS: KETOROLAC 15 MG/ML 1 ML VIAL IVP STA (02:45)
[2025-02-16] MEDS: ONDANSETRON 4 MG/2 ML VIAL IVP STA (02:46)
[2025-02-16 03:01] LABS: Basophils # (A) 0.04 10*3/uL (0.00-0.10); Basophils % (A) 0.5 %; Eosinophils # (A) 0.05 10*3/uL (0.04-0.35); Eosinophils % (A) 0.6 %; HCT 38.9 % (37.2-46.3); HGB 13.4 g/dL (12.0-15.0); Lymphocytes # (A) 3.99 10*3/uL (0.90-5.00); Lymphocytes % (A) 45.6 %; MCH 32.3 pg (27.0-32.0); MCHC 34.4 g/dL (32.0-37.0); MCV 93.7 fL (80.0-97.0); Monocytes # (A) 0.60 10*3/uL (0.20-1.00); Monocytes % (A) 6.9 %; Neutrophils # (A) 4.05 10*3/uL (1.80-7.70); Neutrophils % (A) 46.2 %; Platelet Count 304 10*3/uL (140-440); RBC 4.15 10*6/uL (4.10-5.20); RDW 12.5 % (11.5-14.5); WBC 8.75 10*3/uL (4.50-10.00)
[2025-02-16 03:39] LABS: ALT 21 U/L (4-34); AST 29 U/L (14-36); African American GFR (CKD) >90 (>60 ml/min/1.73 sqM); Albumin 4.5 g/dL (3.5-5.0); Alkaline Phosphatase 80 U/L (38-126); Anion Gap 10 mmol/L; Blood Urea Nitrogen 9 mg/dL (7-17); Calcium 9.9 mg/dL (8.4-10.2); Carbon Dioxide 29 mmol/L (22-30); Chloride 100 mmol/L (98-107); Glucose 104 mg/dL (74-99); Non-African American GFR(CKD) 85 (>60 ml/min/1.73 sqM); Potassium 3.7 mmol/L (3.5-5.1); Sodium 139 mmol/L (137-145); Total Protein 7.4 g/dL (6.3-8.2)
[2025-02-16 03:57] LABS: Bilirubin,Urine Negative (Negative); Blood,Urine Negative (Negative); Color,Urine Colorless; Glucose,Urine (UA) Negative (Negative); Ketones,Urine 1+ (Negative); Leukocyte Esterase,Urine Negative (Negative); Nitrite,Urine Negative (Negative); PH, Urine 7.5 (5.0-8.0); Protein,Urine Negative (Negative); Specific Gravity,Urine 1.008 (1.001-1.035); Urobilinogen,Urine <2.0 mg/dL (<2.0)
[2025-02-16] MEDS: ACETAMINOPHEN TAB 325 MG TAB PO STA (04:07)
[2025-02-16 04:19] VITALS: BP 174/64; PULSE 74; RESP 17
== END 2025-02-16 04:19 | disposition home or self-care (01) ==
LOC: EC 01:58
DX: R10.30 Lower abdominal pain, unspecified (principal); F41.9 Anxiety disorder, unspecified; Z87.891 Personal history of nicotine dependence
CPT/HCPCS: 36415; 80053; 85025; 81003; 99285; 96374; 96375; 96361; J2405; J1885